=== PATIENT | female | born 1990 | race Caucasian/White ===

== ENCOUNTER 2016-05-16 12:50 | Outpatient (CLI) | payer MEDICAID, OTHER | END 2016-05-16 12:51 | disposition home or self-care (01) | DX: M25.551 Pain in right hip (principal) ==

== ENCOUNTER 2016-06-10 15:21 | Emergency (ER) | payer MEDICAID ==
[2016-06-10] MEDS ORDERED: ALBUTEROL NEB 2.5 MG/3 ML INH STA (15:35)
[2016-06-10] MEDS ORDERED: DEXAMETHASONE 10 MG/ML VIAL PO STA (15:35)
[2016-06-10] MEDS ORDERED: BUTALB/ACETAM/CAFF 50/325/40MG TABLET PO STA (15:36)
[2016-06-10] MEDS ORDERED: DEXAMETHASONE 10 MG/ML VIAL ONE (15:43)
[2016-06-10] MEDS ORDERED: ALBUTEROL NEB 2.5 MG/3 ML INH ONE (15:46)
== END 2016-06-10 16:25 | disposition home or self-care (01) ==
DX: J06.9 Acute upper respiratory infection, unspecified (principal); G43.909 Migraine, unspecified, not intractable, without status migrainosus; G44.89 Other headache syndrome; I10 Essential (primary) hypertension; E11.9 Type 2 diabetes mellitus without complications; Z87.891 Personal history of nicotine dependence; Z20.828 Contact with and (suspected) exposure to other viral communicable diseases
CPT/HCPCS: 71020; 94640; 99282; 99283; A9270; J7613

== ENCOUNTER 2016-06-14 08:27 | Emergency (ER) | payer MEDICAID ==
[2016-06-14] MEDS ORDERED: ERYTHROMYCIN OPHTH OINT 1 GM TUBE LEFTEYE STA (09:39)
[2016-06-14] MEDS ORDERED: PSEUDOEPHEDRINE 30 MG TABLET PO STA (09:39)
[2016-06-14] MEDS ORDERED: PSEUDOEPHEDRINE 30 MG TABLET PO ONE (09:40)
[2016-06-14] MEDS ORDERED: ERYTHROMYCIN OPHTH OINT 1 GM TUBE ONE (09:40)
== END 2016-06-14 09:45 | disposition home or self-care (01) ==
DX: H10.9 Unspecified conjunctivitis (principal); J06.9 Acute upper respiratory infection, unspecified; B97.89 Other viral agents as the cause of diseases classified elsewhere; I10 Essential (primary) hypertension; E11.9 Type 2 diabetes mellitus without complications; Z87.891 Personal history of nicotine dependence
CPT/HCPCS: 99283; A9270; J3490

== ENCOUNTER 2016-06-29 00:22 | Emergency (ER) | payer MEDICAID ==
[2016-06-29] MEDS ORDERED: AZITHROMYCIN 250 MG TABLET PO STA (01:42)
[2016-06-29] MEDS ORDERED: cefTRIAXone 250 MG VIAL IM STA (01:43)
[2016-06-29] MEDS ORDERED: FLUCONAZOLE 100 MG TABLET PO STA (01:43)
[2016-06-29] MEDS ORDERED: PHENAZOPYRIDINE 100 MG TABLET PO STA (01:43)
[2016-06-29] MEDS ORDERED: cefTRIAXone 250 MG VIAL ONE (01:49)
[2016-06-29] MEDS ORDERED: AZITHROMYCIN 250 MG TABLET PO ONE (01:49)
[2016-06-29] MEDS ORDERED: FLUCONAZOLE 100 MG TABLET ONE (01:49)
[2016-06-29] MEDS ORDERED: PHENAZOPYRIDINE 100 MG TABLET PO ONE (01:49)
[2016-06-29] MEDS ORDERED: LIDOCAINE-MPF 1% 5 ML VIAL ONE (01:49)
== END 2016-06-29 02:23 | disposition home or self-care (01) ==
DX: N30.91 Cystitis, unspecified with hematuria (principal); I10 Essential (primary) hypertension; E11.9 Type 2 diabetes mellitus without complications; Z87.891 Personal history of nicotine dependence
CPT/HCPCS: 81001; 81025; 96372; 99283; A9270

== ENCOUNTER 2016-09-23 10:48 | Outpatient (CLI) | payer MEDICAID ==
[2016-09-23 13:31] LABS: BASOPHILS % (AUTO) 0.3 %; EOSINOPHILS # (AUTO) 0.2 10^3/uL (0.0-0.7); EOSINOPHILS % (AUTO) 1.8 %; HCT - HEMATOCRIT 38.9 % (37.0-47.0); HGB - HEMOGLOBIN 13.3 g/dL (12.0-16.0); LYMPHOCYTES # (AUTO) 3.4 10^3/uL (1.5-3.5); LYMPHOCYTES % (AUTO) 36.1 %; MEAN CORPUSCULAR HEMOGLOBIN 29.7 pg (27.0-31.0); MEAN CORPUSCULAR HGB CONC 34.2 g/dL (32.0-36.0); MEAN CORPUSCULAR VOLUME 86.9 fL (81.0-99.0); MEAN PLATELET VOLUME 8.1 fL (7.9-10.8); MONOCYTES # (AUTO) 0.6 10^3/uL (0.0-1.0); MONOCYTES % (AUTO) 6.7 %; NEUTROPHILS # (AUTO) 5.1 10^3/uL (1.5-6.6); NEUTROPHILS % (AUTO) 55.1 %; RED BLOOD COUNT 4.47 10^6/uL (4.20-5.40); RED CELL DISTRIBUTION WIDTH 13.4 % (12.0-15.0); UNCORRECTED WHITE BLOOD COUNT 9.3 x10^3/uL; WHITE BLOOD COUNT 9.3 x10^3/uL (4.8-10.8)
[2016-09-23 17:54] LABS: ALBUMIN/GLOBULIN RATIO 1.3 (1.0-2.2); BILIRUBIN,TOTAL 0.8 mg/dL (0.2-1.0); BUN - BLOOD UREA NITROGEN 12 mg/dL (6-20); CALCIUM 9.6 mg/dL (8.5-10.3); CARBON DIOXIDE - CO2 24 mmol/L (21-32); CHLORIDE 104 mmol/L (101-111); CHOL/HDL RATIO 4.1 (<4.4); CHOLESTEROL 142 mg/dL; CREATININE 0.7 mg/dL (0.4-1.0); GFR - MDRD 100 (>89); GLUCOSE 100 mg/dL (70-100); HDL CHOLESTEROL 35 mg/dL; POTASSIUM 3.9 mmol/L (3.5-5.0); SODIUM 138 mmol/L (135-145); TOTAL PROTEIN 7.6 g/dL (6.7-8.2)
[2016-09-23 18:07] LABS: LDL/HDL RATIO 2.6 (<4.4); TRIGLYCERIDES 84 mg/dL; VLDL CHOLESTEROL 17 mg/dL
== END 2016-09-23 10:49 | disposition home or self-care (01) ==
LOC: LAB.N 10:48
PROVIDERS: ATTEND Family Medicine
DX: E66.9 Obesity, unspecified (principal)
CPT/HCPCS: 36415; 80053; 80061; 84443; 85025

== ENCOUNTER 2017-01-15 11:49 | Outpatient (CLI) | payer MEDICAID ==
--- NOTE | 2017-01-15 13:13 | Ultrasound Report ---
PELVIC ULTRASOUND: 01/15/2017 CLINICAL INDICATION: Check IUD. TECHNIQUE: Transabdominal pelvic ultrasound performed for global evaluation. Transvaginal pelvic ul trasound performed for detailed evaluation. Real-time scanning performed and static images obtained. FINDINGS: Visualization is limited by habitus. The uterus is anteverted, measuring 8.6 x 5.0 x 3.4 cm. The endometrial echo complex measures 3 mm. The IUD is noted in the lower uterine segment. The ovaries are unremarkable, with the right measuri ng 4.1 x 2.6 x 2.6 cm and the left measuring 4.4 x 3.3 x 2.7 cm. No free fluid is present. IMPRESSION: IUD IN THE LOWER UTERINE SEGMENT. JOB #: [id number] EXT JOB #:[id number]
== END 2017-01-15 11:50 | disposition home or self-care (01) ==
LOC: DI 11:49
PROVIDERS: ATTEND Obstetrics & Gynecology
DX: Z30.431 Encounter for routine checking of intrauterine contraceptive device (principal)
CPT/HCPCS: 76830; 76856

== ENCOUNTER 2017-02-25 13:12 | Emergency (ER) | payer MEDICAID ==
[2017-02-25 13:18] VITALS: BP 130/76
[2017-02-25 14:57] LABS: BILIRUBIN,URINE NEGATIVE (NEGATIVE)
[2017-02-25 14:59] LABS: UA w/ MICROSCOPIC CHARGE YES
[2017-02-25 15:00] LABS: HCG UR QUAL NEGATIVE
[2017-02-25 15:21] LABS: UR CULTURE IF IND NOT INDICATED; WBC,URINE 0-3 /HPF (0-5)
--- NOTE | 2017-02-25 16:25 | ED Physician Documentation ---
History of Present Illness - Stated complaint Stated Complaint: LEFT HIP PX - Chief complaint Chief Complaint: Ext Problem - History obtained from History obtained from: Patient - History of Present Illness Timing: How many weeks ago (1) - Additonal information Additional information: 27-year-old female with a prior history of sciatica has developed pain in the left hip. She does not have any known injury to the area and she is not complaining of any pain in her back today. She has this pain that is unexplainable and is worse if she stands up and moves and better if she is laying in a certain position. She has not otherwise been ill. Review of Systems Constitutional: denies: Fever Eyes: denies: Decreased vision Ears: denies: Ear pain Nose: denies: Congestion Throat: denies: Sore throat Cardiac: denies: Chest pain / pressure Respiratory: denies: Cough GI: denies: Vomiting : denies: Dysuria Skin: denies: Rash Musculoskeletal: reports: Extremity pain, Joint pain, Pain with weight bearing. 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 CERAMIST: section HEENT: Tonsil/Adenoidectomy - Present Medications Home Medications: Ambulatory Orders Medication Instructions Recorded Confirmed buPROPion [Wellbutrin Sr] 0 mg PO BID 03/04/16 02/25/17 Cyclobenzaprine [Flexeril] 10 mg PO TID PRN #20 tablet 02/25/17 HYDROcod/ACETAM 5/325 [[place] 5/325] 1 - 2 ea PO Q6H PRN #15 tablet 02/25/17 busPIRone [Buspar] 0 mg DAILY 02/25/17 02/25/17 traZODone [Desyrel] 0 mg DAILY 02/25/17 02/25/17 - Allergies Allergies/Adverse Reactions: Allergies Allergy/AdvReac Type Severity Reaction Status Date / Time No Known Drug Allergies Allergy Verified 02/25/17 13:18 - Social History Does the pt smoke?: No Smoking Status: Former smoker Does the pt drink ETOH?: No Does the pt have substance abuse?: No Substance Use and Type: Marijuana - Immunizations Immunizations are current?: Yes Immunizations: TDAP >10years/unknown - POLST Patient has POLST: No PD ED PE NORMAL - Vitals Vital signs reviewed: Yes (Normal) - General General: No acute distress, Well developed/nourished - HEENT HEENT: Atraumatic, PERRL - Respiratory Respiratory: No respiratory distress - Back Back: No CVA TTP, No spinal TTP - Derm Derm: Normal color, Warm and dry, No rash - Extremities Extremities: No deformity, No edema, Other (The patient is able to lift the role of abdominal adipose tissue away from the inguinal crease to reveal where her pain is. There are no changes to the skin no palpable masses the area is some specific tenderness to specific area but without palpable defect under the skin. She does have pain palpable into the sciatic notch on the left side as well. She does not have paraspinous muscle tenderness. The distal neurovascular components are intact.) - Neuro Neuro: Alert and oriented X 3, No motor deficit, No sensory deficit, Normal speech Eye Opening: Spontaneous Motor: Obeys Commands Verbal: Oriented GCS Score: 15 - Psych Psych: Normal mood, Normal affect Results - Vitals Vitals: Vital Signs - 24 hr 02/25/17 13:14 Temperature 36.7 C Heart Rate 75 Respiratory 20 Rate Blood Pressure 130/76 O2 Saturation 97 Oxygen O2 Source Room air - Labs Labs: Laboratory Tests 02/25/17 14:46 Urine Color DARK YELLOW Urine Clarity HAZY Urine pH 6.0 Ur Specific [place] 1.025 Urine Protein 30 H Urine Glucose (UA) NEGATIVE Urine Ketones NEGATIVE Urine Occult Blood LARGE H Urine Nitrite NEGATIVE Urine Bilirubin NEGATIVE Urine Urobilinogen 0.2 (NORMAL) Ur Leukocyte Esterase NEGATIVE Urine RBC 0-5 Urine WBC 0-3 Ur Squamous Epith Cells MANY Squamous H Urine Bacteria Few Urine Mucus Marked Strands Ur Microscopic Review INDICATED Urine Culture Comments NOT INDICATED Urine HCG, Qual NEGATIVE PD MEDICAL DECISION MAKING - ED course Complexity details: reviewed old records, reviewed results, re-evaluated patient , considered differential, d/w patient ED course: 27-year-old female with a history of sciatica has pain in the left hip I suspect this is referred pain I do not find any changes to the skin or areas to be concern for abscess or other unusual process. She is administered dexamethasone 10 mg orally in the emergency department and a injection of Toradol. Departure - Departure Disposition: 01 Home, Self Care Clinical Impression: Sciatica Qualifiers: Laterality: left Qualified Code(s): M54.32 - Sciatica, left side Condition: Stable Instructions: ED Sciatica Follow-Up: [facility] [Provider Group] Prescriptions: Cyclobenzaprine [Flexeril] 10 mg PO TID PRN #20 tablet PRN Reason: Spasms HYDROcod/ACETAM 5/325 [[place] 5/325] 1 - 2 ea PO Q6H PRN #15 tablet PRN Reason: Pain
[2017-02-25] MEDS ORDERED: CHERRY SYRUP 10 ML UDC PO ONE (16:36)
[2017-02-25] MEDS: DEXAMETHASONE 10 MG/ML VIAL PO STA (16:36)
[2017-02-25] MEDS ORDERED: KETOROLAC 60 MG/2 ML VIAL ONE (16:36)
[2017-02-25] MEDS ORDERED: DEXAMETHASONE 10 MG/ML VIAL ONE (16:36)
[2017-02-25] MEDS: KETOROLAC 60 MG/2 ML VIAL IM STA (16:41)
== END 2017-02-25 17:00 | disposition home or self-care (01) ==
LOC: ED 13:12
DX: M54.32 Sciatica, left side (principal); I10 Essential (primary) hypertension; Z87.891 Personal history of nicotine dependence
CPT/HCPCS: 81001; 81003; 81025; 87086; 96372; 99283

== ENCOUNTER 2017-03-02 08:40 | Emergency (ER) | payer MEDICAID ==
--- NOTE | 2017-03-02 09:35 | ED Physician Documentation ---
PD HPI LOWER EXT INJURY - Stated complaint Stated Complaint: LT HIP PX - Chief complaint Chief Complaint: Ext Problem - History obtained from History obtained from: Patient - History of Present Illness PD HPI LOW EXT INJURY LOCATION: Left, Hip (and low back) Type of injury: No: Fall, Twist, Blunt / blow Timing - onset: How many weeks ago (1-2) Timing - duration: Weeks (1-2) Timing - details: Gradual onset, Still present Worsened by: Moving, Palpating Associated symptoms: No: Weakness, Numbness, Swelling, Discolored Similar symptoms before: No diagnosis (has low back pain in past, but this lateral/hip pain is different.) Recently seen: Emergency Dept (several days ago with this, and Rx hydrocodone and FLexeril. She says the flexeril makes her too sleepy and the hydrocodone makes her nauseated. Has done better on other meds in the past. 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 HEENT: None Psych: Depression, Anxiety Musculoskeletal: Chronic back pain - Past Surgical History Past Surgical History: Yes /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 HEENT: Tonsil/Adenoidectomy - Present Medications Home Medications: Ambulatory Orders Medication Instructions Recorded Confirmed buPROPion [Wellbutrin Sr] 150 mg PO BID 03/04/16 03/02/17 Cyclobenzaprine [Flexeril] 10 mg PO TID PRN #20 tablet 02/25/17 03/02/17 HYDROcod/ACETAM 5/325 [[place] 5/325] 1 - 2 ea PO Q6H PRN #15 tablet 02/25/17 busPIRone [Buspar] 150 mg BID 02/25/17 03/02/17 traZODone [Desyrel] 400 mg DAILY 02/25/17 03/02/17 Citalopram [CeleXA] 10 mg PO DAILY 11/20/17 11/20/17 Dexamethasone [Decadron] 4 mg PO DAILY #5 tablet 03/02/17 LORazepam [Lorazepam] 1 mg PO PRN PRN 03/02/17 03/02/17 Methocarbamol [Robaxin] 500 mg PO Q6H PRN #20 tablet 03/02/17 Naproxen [Naprosyn] 500 mg PO BID PRN #20 tablet 03/02/17 Oxycodone HCl/Acetaminophen 1 each PO Q6H PRN #15 tablet 03/02/17 [Percocet 5-325 mg Tablet] - Allergies Allergies/Adverse Reactions: Allergies Allergy/AdvReac Type Severity Reaction Status Date / Time No Known Drug Allergies Allergy Verified 03/02/17 08:51 - Social History Does the pt smoke?: No Smoking Status: Never smoker Does the pt drink ETOH?: No Does the pt have substance abuse?: No - Immunizations Immunizations are current?: Yes Immunizations: TDAP >10years/unknown - POLST Patient has POLST: No PD ED PE NORMAL - Vitals Vital signs reviewed: Yes - General General: Alert and oriented X 3, No acute distress, Well developed/nourished - Abdomen Abdomen: Soft, Non tender - Back Back: No CVA TTP, No spinal TTP, Other (tender just above iliac crest and lateral to the lateral gluteal area. Hurts with deeper palpation. No redness nor rash. ) - Derm Derm: Normal color, Warm and dry, No rash - Extremities Extremities: No edema, No calf tenderness / cord - Neuro Neuro: Alert and oriented X 3, No motor deficit, No sensory deficit, Normal speech Results - Vitals Vitals: Vital Signs - 24 hr 03/02/17 12:09 Temperature 35.8 C L Heart Rate 56 L Respiratory 16 Rate Blood Pressure 128/71 O2 Saturation 98 Oxygen O2 Source Room air - Labs Labs: Laboratory Tests 03/02/17 03/02/17 10:53 10:53 WBC 9.4 RBC 4.17 L Hgb 12.6 Hct 36.7 L MCV 88.0 MCH 30.3 MCHC 34.4 RDW 13.4 Plt Count 265 MPV 8.1 Neut # 5.6 Lymph # 3.0 Bennett # 0.6 Eos # 0.1 Baso # 0.1 Absolute Nucleated RBC 0.00 Nucleated RBC % 0.0 ESR 19 - Rads (name of study) soft tissue U/S Radiology: Prelim report reviewed (No fluid collections seen to suggest abscess/ etc.) PD MEDICAL DECISION MAKING - ED course Complexity details: reviewed results (cbc and U/S are okay, no apparent deeper soft tissue infection/abscess. No rash. Will conclude still myofascial pain. No real sciatic symptoms. ), considered differential (seems likely myofascial pain. She says the hydrocodone makes her sick and she has bottle with her with pills still in it. She offers to have us dispose of it. Says Percocet has worked in past without causing nausea. Flexeril has made her very tired and will change that as well. ), d/w patient Departure - Departure Disposition: 01 Home, Self Care Clinical Impression: Left low back pain Qualifiers: Chronicity: acute Sciatica presence: without sciatica Qualified Code(s): M54.5 - Low back pain Condition: Stable Record reviewed to determine appropriate education?: Yes Instructions: ED Low Back Pain Injury Follow-Up: Joe Lugo MD [Primary Care Provider] - Prescriptions: Dexamethasone [Decadron] 4 mg PO DAILY #5 tablet Methocarbamol [Robaxin] 500 mg PO Q6H PRN #20 tablet PRN Reason: Spasms Naproxen [Naprosyn] 500 mg PO BID PRN #20 tablet PRN Reason: Pain Oxycodone HCl/Acetaminophen [Percocet 5-325 mg Tablet] 1 each PO Q6H PRN #15 tablet PRN Reason: Pain Comments: Drink lots of fluids. There are no signs of infection based on blood count or ultrasound. At this point we will presume muscular or nerve irritation as the cause of the pain. Use some naproxen twice daily. Add also dexamethasone daily for 5 days for inflammation. Methocarbamol if needed for spasms and should not be sedating like the cyclobenzaprine. Add Percocet if needed for pain short-term. I would anticipate this improving over the next several days to week. Follow-up with your primary care if it has not. Discharge Date/Time: 03/02/17 12:42
[2017-03-02] MEDS ORDERED: KETOROLAC 60 MG/2 ML VIAL IM STA (10:29)
[2017-03-02] MEDS ORDERED: KETOROLAC 60 MG/2 ML VIAL ONE (10:39)
[2017-03-02 10:59] LABS: BASOPHILS # (AUTO) 0.1 10^3/uL (0.0-0.1); BASOPHILS % (AUTO) 0.8 %; EOSINOPHILS # (AUTO) 0.1 10^3/uL (0.0-0.7); EOSINOPHILS % (AUTO) 1.3 %; HCT - HEMATOCRIT 36.7 % (37.0-47.0); HGB - HEMOGLOBIN 12.6 g/dL (12.0-16.0); LYMPHOCYTES % (AUTO) 32.4 %; MEAN CORPUSCULAR HEMOGLOBIN 30.3 pg (27.0-31.0); MEAN CORPUSCULAR HGB CONC 34.4 g/dL (32.0-36.0); MEAN PLATELET VOLUME 8.1 fL (7.9-10.8); MONOCYTES # (AUTO) 0.6 10^3/uL (0.0-1.0); MONOCYTES % (AUTO) 6.4 %; NEUTROPHILS # (AUTO) 5.6 10^3/uL (1.5-6.6); NEUTROPHILS % (AUTO) 59.1 %; RED BLOOD COUNT 4.17 10^6/uL (4.20-5.40); RED CELL DISTRIBUTION WIDTH 13.4 % (12.0-15.0); UNCORRECTED WHITE BLOOD COUNT 9.4 x10^3/uL; WHITE BLOOD COUNT 9.4 x10^3/uL (4.8-10.8)
[2017-03-02 12:10] VITALS: BP 128/71
--- NOTE | 2017-03-02 12:24 | Ultrasound Report ---
ULTRASOUND LEFT BUTTOCK: 03/02/2017 CLINICAL INDICATION: Pain. TECHNIQUE: Real-time scanning was performed with rental sales representative static images obtained. FINDINGS: Ultrasound of the region of pain identified by the patient was performed. Unremarkable subcutaneous fat is seen. No drainable abscess is identified. IMPRESSION: NO EVIDENCE OF AN ABSCESS IN THE REGION OF PAIN IDENTIFIED BY THE PATIENT. JOB #: [id number] EXT JOB #:[id number]
== END 2017-03-02 12:42 | disposition home or self-care (01) ==
LOC: ED 08:40
DX: M54.5 Low back pain (principal); M25.552 Pain in left hip; I10 Essential (primary) hypertension; E11.9 Type 2 diabetes mellitus without complications
CPT/HCPCS: 36415; 76882; 85025; 85651; 96372; 99283

== ENCOUNTER 2017-04-10 21:04 | Emergency (ER) | payer MEDICAID ==
--- NOTE | 2017-04-10 21:16 | ED Physician Documentation ---
PD HPI UPPER EXT INJURY - Stated complaint Stated Complaint: KNUCKLE INJURY - Chief complaint Chief Complaint: Trauma Ext - History obtained from History obtained from: Patient - History of Present Illness Location: Left, Finger (middle finger got bent to side accidentally lidting/ playing with her son. Pain at the MCP dorsally and it clicks when she bends it.) Type of injury: Twist Where injury occurred: Home Timing - onset: Today Timing - details: Abrupt onset, Still present Improved by: Rest Worsened by: Moving (bending finger causes clicking feeling. Able to extend it okay.) Associated symptoms: Swelling. 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 HEENT: None Psych: Depression, Anxiety Musculoskeletal: Chronic back pain - Past Surgical History Past Surgical History: Yes /TOOL CRIB MANAGER: 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 HEENT: Tonsil/Adenoidectomy - Present Medications Home Medications: Ambulatory Orders Medication Instructions Recorded Confirmed buPROPion [Wellbutrin Sr] 150 mg PO BID 03/04/16 03/02/17 Cyclobenzaprine [Flexeril] 10 mg PO TID PRN #20 tablet 02/25/17 03/02/17 HYDROcod/ACETAM 5/325 [[place] 5/325] 1 - 2 ea PO Q6H PRN #15 tablet 02/25/17 busPIRone [Buspar] 150 mg BID 02/25/17 03/02/17 traZODone [Desyrel] 400 mg DAILY 02/25/17 03/02/17 Citalopram [CeleXA] 10 mg PO DAILY 03/02/17 03/02/17 Dexamethasone [Decadron] 4 mg PO DAILY #5 tablet 03/02/17 LORazepam [Lorazepam] 1 mg PO PRN PRN 03/02/17 03/02/17 Methocarbamol [Robaxin] 500 mg PO Q6H PRN #20 tablet 03/02/17 Naproxen [Naprosyn] 500 mg PO BID PRN #20 tablet 03/02/17 Oxycodone HCl/Acetaminophen 1 each PO Q6H PRN #15 tablet 03/02/17 [Percocet 5-325 mg Tablet] - Allergies Allergies/Adverse Reactions: Allergies Allergy/AdvReac Type Severity Reaction Status Date / Time No Known Drug Allergies Allergy Verified 04/10/17 21:18 - Social History Does the pt smoke?: No Smoking Status: Never smoker Does the pt drink ETOH?: No Does the pt have substance abuse?: No - Immunizations Immunizations are current?: Yes Immunizations: TDAP >10years/unknown - POLST Patient has POLST: No PD ED PE NORMAL - Vitals Vital signs reviewed: Yes - General General: Alert and oriented X 3, No acute distress, Well developed/nourished - Derm Derm: Normal color, Warm and dry - Extremities Extremities: Other (left middle finger tender at dorsal MCP, with good extension against resistance. Flexion causes it to have the extensor tendon shift from center to side abruptly giving a clicking feel. ) - Neuro Neuro: No motor deficit, No sensory deficit Results - Vitals Vitals: Vital Signs - 24 hr 04/10/17 21:16 Temperature 36.3 C L Heart Rate 76 Respiratory 18 Rate Blood Pressure 129/60 O2 Saturation 97 Oxygen O2 Source Room air - Rads (name of study) middle finger Radiology: Prelim report reviewed, EMP read contemporaneously (no fractures. ) PD MEDICAL DECISION MAKING - ED course Complexity details: considered differential (she has slipping of the extensor tendon from center to side with flexion, so presume disruption of the retinaculum fibers. ), d/w patient Departure - Departure Disposition: 01 Home, Self Care Clinical Impression: Finger sprain Qualifiers: Encounter type: initial encounter Finger: middle finger Sprain of finger site: metacarpophalangeal joint Laterality: left Qualified Code(s): S63.653A - Sprain of metacarpophalangeal joint of left middle finger, initial encounter Condition: Stable Record reviewed to determine appropriate education?: Yes Instructions: ED Sprain Finger Follow-Up: Joe Lugo MD [Primary Care Provider] - [facility] [Provider Group] Comments: Finger splint for the knuckle when using your hand. You can have it off at times when just resting or sleeping. Do this for couple of weeks. Tylenol or ibuprofen if needed for pain or inflammation. It seems that you disrupted some of the anchoring fibers of the tendon so it is looser and moving over the knuckle as it bends. This commonly will heal in place with a little bit of time. Follow-up with orthopedics if it is continues to twang out of position with movement after 1-1 1/2 weeks. Discharge Date/Time: 04/10/17 21:58
[2017-04-10 21:18] VITALS: BP 129/60
--- NOTE | 2017-04-10 21:55 | XRAY Report ---
EXAM: RIGHT THIRD DIGIT RADIOGRAPHY EXAM DATE: 04/10/2017 09:38 PM. CLINICAL HISTORY: Middle finger injury at MCP joint. Pain. COMPARISON: None. TECHNIQUE: 3 views. FINDINGS: Bones: Normal. No fracture or bone lesion. Joints: Normal. No subluxations. Soft Tissues: Normal. No soft tissue swelling. IMPRESSION: Normal third digit radiography. [facility] Referring Provider Line: [phone] SITE ID: [id number]
== END 2017-04-10 21:58 | disposition home or self-care (01) ==
LOC: ED 21:04
DX: S63.653A Sprain of metacarpophalangeal joint of left middle finger, initial encounter (principal); X50.0XXA Overexertion from strenuous movement or load, initial encounter; Y92.019 Unspecified place in single-family (private) house as the place of occurrence of the external cause
CPT/HCPCS: 73140; 99283

== ENCOUNTER 2017-07-22 10:21 | Outpatient (CLI) | payer MEDICAID ==
--- NOTE | 2017-07-22 12:51 | XRAY Report ---
TWO VIEW LEFT HAND: 07/22/2017 CLINICAL INDICATION: Pain middle finger. FINDINGS: AP, lateral views of the left hand demonstrate no evidence of fracture. The joint spaces are preserved. No radiopaque foreign body is seen in the soft tissues. IMPRESSION: NORMAL LEFT HAND. TD: 07/22/2017 12:50
== END 2017-07-22 10:22 | disposition home or self-care (01) ==
LOC: DI.N 10:21
PROVIDERS: ATTEND Physician Assistant Medical
DX: M79.645 Pain in left finger(s) (principal); S63.65 Sprain of metacarpophalangeal joint of other and unspecified finger(s); N64.3 Galactorrhea not associated with childbirth; E55.9 Vitamin D deficiency, unspecified; M25.552 Pain in left hip; E66.9 Obesity, unspecified; M25.551 Pain in right hip; M79.672 Pain in left foot; M79.642 Pain in left hand
CPT/HCPCS: 36415; 82306; 84146; 84443; 85025

== ENCOUNTER 2017-07-22 10:45 | Outpatient (CLI) | payer MEDICAID ==
[2017-07-22 12:46] LABS: BASOPHILS % (AUTO) 0.3 %; EOSINOPHILS # (AUTO) 0.1 10^3/uL (0.0-0.7); EOSINOPHILS % (AUTO) 1.5 %; HGB - HEMOGLOBIN 13.5 g/dL (12.0-16.0); LYMPHOCYTES # (AUTO) 2.7 10^3/uL (1.5-3.5); LYMPHOCYTES % (AUTO) 32.8 %; MEAN CORPUSCULAR VOLUME 88.4 fL (81.0-99.0); MEAN PLATELET VOLUME 8.4 fL (7.9-10.8); MONOCYTES # (AUTO) 0.5 10^3/uL (0.0-1.0); MONOCYTES % (AUTO) 6.2 %; NEUTROPHILS # (AUTO) 4.9 10^3/uL (1.5-6.6); NEUTROPHILS % (AUTO) 59.2 %; PLT - PLATELET COUNT 252 10^3/uL (130-450); RED BLOOD COUNT 4.51 10^6/uL (4.20-5.40); RED CELL DISTRIBUTION WIDTH 13.1 % (12.0-15.0); WHITE BLOOD COUNT 8.3 x10^3/uL (4.8-10.8)
[2017-07-22 13:19] LABS: THYROID STIMULATING HORMONE 1.12 uIU/mL (0.34-5.60)
[2017-07-22 13:24] LABS: PROLACTIN 5.78 ng/mL
== END 2017-07-22 10:46 | disposition home or self-care (01) ==
LOC: LAB.N 10:45
PROVIDERS: ATTEND Registered Nurse
DX: N64.3 Galactorrhea not associated with childbirth (principal); E55.9 Vitamin D deficiency, unspecified; M25.552 Pain in left hip; E66.9 Obesity, unspecified; M25.551 Pain in right hip; M79.642 Pain in left hand; M79.672 Pain in left foot
CPT/HCPCS: 36415; 82306; 84146; 84443; 85025

== ENCOUNTER 2017-08-12 10:11 | Outpatient (CLI) | payer MEDICAID ==
--- NOTE | 2017-08-12 12:40 | XRAY Report ---
THREE VIEW RIGHT FOOT: 08/12/2017 CLINICAL INDICATION: Pain. FINDINGS: AP, lateral, oblique views of the right foot demonstrate no evidence of fracture or dislocation. Small plantar calcaneal spur is noted. No foreign body is seen in the soft tissues. IMPRESSION: SMALL PLANTAR CALCANEAL SPUR. TD: 08/12/2017 12:39
== END 2017-08-12 10:12 | disposition home or self-care (01) ==
LOC: DI.N 10:11
PROVIDERS: ATTEND Physician Assistant Medical
DX: M79.671 Pain in right foot (principal); M77.31 Calcaneal spur, right foot

== ENCOUNTER 2017-08-12 19:31 | Emergency (ER) | payer MEDICAID ==
[2017-08-12] MEDS ORDERED: TRIAMCINOLONE 0.1% OINT 15 GM TUBE TOP STA (20:47)
[2017-08-12] MEDS ORDERED: predniSONE 20 MG TABLET PO STA (20:47)
--- NOTE | 2017-08-12 20:50 | ED Physician Documentation ---
PD HPI SKIN - Stated complaint Stated Complaint: RASH/RT ARM - Chief complaint Chief Complaint: Wound - History obtained from History obtained from: Patient - History of Present Illness Timing - onset: Other (She was playing a game which involved grabbing at coins for several hours at the [employer] today and developed an itchy raised rash over the anterior right forearm where she was in contact with multiple pieces of metal and coins.) Review of Systems Constitutional: reports: Reviewed and negative Cardiac: reports: Reviewed and negative Respiratory: reports: Reviewed and negative PD PAST MEDICAL HISTORY - Past Medical History Past Medical History: Yes Cardiovascular: Hypertension Respiratory: Pneumonia Neuro: Headache/migraine Endocrine/Autoimmune: Type 2 diabetes GI: None 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 HEENT: None Psych: Depression, Anxiety Musculoskeletal: Chronic back pain - Past Surgical History Past Surgical History: Yes /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 HEENT: Tonsil/Adenoidectomy - Present Medications Home Medications: Ambulatory Orders Medication Instructions Recorded Confirmed buPROPion [Wellbutrin Sr] 150 mg PO BID 03/04/16 03/02/17 Cyclobenzaprine [Flexeril] 10 mg PO TID PRN #20 tablet 02/25/17 03/02/17 HYDROcod/ACETAM 5/325 [[place] 5/325] 1 - 2 ea PO Q6H PRN #15 tablet 02/25/17 busPIRone [Buspar] 150 mg BID 02/25/17 03/02/17 traZODone [Desyrel] 400 mg DAILY 02/25/17 03/02/17 Citalopram [CeleXA] 10 mg PO DAILY 03/02/17 03/02/17 Dexamethasone [Decadron] 4 mg PO DAILY #5 tablet 03/02/17 LORazepam [Lorazepam] 1 mg PO PRN PRN 03/02/17 03/02/17 Methocarbamol [Robaxin] 500 mg PO Q6H PRN #20 tablet 03/02/17 Naproxen [Naprosyn] 500 mg PO BID PRN #20 tablet 03/02/17 Oxycodone HCl/Acetaminophen 1 each PO Q6H PRN #15 tablet 03/02/17 [Percocet 5-325 mg Tablet] Fluconazole [Diflucan] 150 mg PO ONCE #1 tablet 08/12/17 Triamcinolone 0.1% Oint [Kenalog 1 gm TOP BID #2 tube 08/12/17 0.1% Oint] - Allergies Allergies/Adverse Reactions: Allergies Allergy/AdvReac Type Severity Reaction Status Date / Time No Known Drug Allergies Allergy Verified 08/12/17 19:41 - Social History Does the pt smoke?: No Smoking Status: Never smoker Does the pt drink ETOH?: No Does the pt have substance abuse?: No - Immunizations Immunizations are current?: Yes Immunizations: TDAP >10years/unknown - POLST Patient has POLST: No PD ED PE NORMAL - Vitals Vital signs reviewed: Yes - General General: Alert and oriented X 3, No acute distress - Derm Derm: Other (There is a raised contact dermatitis over the mid anterior right forearm within an old tattoo.) - Neuro Neuro: Alert and oriented X 3, Normal speech Results - Vitals Vitals: Vital Signs - 24 hr 08/12/17 08/12/17 19:39 21:08 Temperature 36.0 C L Heart Rate 63 60 Respiratory 16 16 Rate Blood Pressure 138/79 H 114/52 L O2 Saturation 99 98 Oxygen O2 Source Room air Departure - Departure Disposition: 01 Home, Self Care Clinical Impression: Contact dermatitis Qualifiers: Contact dermatitis type: allergic Contact dermatitis trigger: metal Qualified Code(s): 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 This does not mean that you have hypertension, it is a common phenomenon to come to the emergency department and have elevated blood pressure. I recommend that you see your primary care physician within the week to have it rechecked when you are feeling better. Discharge Date/Time: 08/12/17 21:10
[2017-08-12 21:09] VITALS: BP 114/52
== END 2017-08-12 21:10 | disposition home or self-care (01) ==
LOC: ED 19:31
DX: L23.0 Allergic contact dermatitis due to metals (principal); I10 Essential (primary) hypertension; E11.9 Type 2 diabetes mellitus without complications; M79.671 Pain in right foot; M77.31 Calcaneal spur, right foot
CPT/HCPCS: 73630; 99283; A9270; J7512

== ENCOUNTER 2017-11-09 09:20 | Emergency (ER) | payer MEDICAID ==
[2017-11-09 09:37] VITALS: BP 134/98
--- NOTE | 2017-11-09 10:28 | ED Physician Documentation ---
History of Present Illness - Stated complaint Stated Complaint: FEMALE - Chief complaint Chief Complaint: UTI - Additonal information Additional information: hx from pt 27 f dysuria s/p intercourse subj fever no chills no NV some muscular back spasm but no CVA pain no vag bleed or dc Review of Systems Constitutional: reports: Fever. denies: Chills Cardiac: denies: Chest pain / pressure Respiratory: denies: Dyspnea GI: denies: Abdominal Pain : reports: Dysuria. 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 HEENT: Tonsil/Adenoidectomy - Present Medications Home Medications: Ambulatory Orders Medication Instructions Recorded Confirmed buPROPion [Wellbutrin Sr] 150 mg PO BID 03/04/16 03/02/17 Cyclobenzaprine [Flexeril] 10 mg PO TID PRN #20 tablet 02/25/17 03/02/17 HYDROcod/ACETAM 5/325 [[place] 5/325] 1 - 2 ea PO Q6H PRN #15 tablet 02/25/17 busPIRone [Buspar] 150 mg BID 02/25/17 03/02/17 traZODone [Desyrel] 400 mg DAILY 02/25/17 03/02/17 Citalopram [CeleXA] 10 mg PO DAILY 03/02/17 03/02/17 Dexamethasone [Decadron] 4 mg PO DAILY #5 tablet 03/02/17 LORazepam [Lorazepam] 1 mg PO PRN PRN 03/02/17 03/02/17 Methocarbamol [Robaxin] 500 mg PO Q6H PRN #20 tablet 03/02/17 Naproxen [Naprosyn] 500 mg PO BID PRN #20 tablet 03/02/17 Oxycodone HCl/Acetaminophen 1 each PO Q6H PRN #15 tablet 03/02/17 [Percocet 5-325 mg Tablet] Fluconazole [Diflucan] 150 mg PO ONCE #1 tablet 08/12/17 Triamcinolone 0.1% Oint [Kenalog 1 gm TOP BID #2 tube 08/12/17 0.1% Oint] Cephalexin [Keflex] 500 mg PO Q6H #28 capsule 11/09/17 Phenazopyridine [Pyridium] 100 mg PO Q8H PRN #9 tablet 11/09/17 - Allergies Allergies/Adverse Reactions: Allergies Allergy/AdvReac Type Severity Reaction Status Date / Time No Known Drug Allergies Allergy Verified 11/09/17 09:37 - Social History Does the pt smoke?: No Smoking Status: Never smoker Does the pt drink ETOH?: No Does the pt have substance abuse?: No - Immunizations Immunizations are current?: Yes Immunizations: TDAP >10years/unknown - POLST Patient has POLST: No PD ED PE NORMAL - Vitals Vital signs reviewed: Yes - Cardiac Cardiac: RRR - Respiratory Respiratory: No respiratory distress - Abdomen Abdomen: Soft, Non tender - Back Back: No CVA TTP - Neuro Neuro: Alert and oriented X 3 Results - Vitals Vitals: Vital Signs - 24 hr 11/09/17 09:34 Temperature 36.1 C L Heart Rate 74 Respiratory 20 Rate Blood Pressure 134/98 H O2 Saturation 100 Oxygen O2 Source Room air - Labs Labs: Laboratory Tests 11/09/17 10:20 Urine Color YELLOW Urine Clarity HAZY Urine pH 6.5 Ur Specific [place] 1.015 Urine Protein NEGATIVE Urine Glucose (UA) NEGATIVE Urine Ketones NEGATIVE Urine Occult Blood TRACE-INTA Urine Nitrite NEGATIVE Urine Bilirubin NEGATIVE Urine Urobilinogen 0.2 (NORMAL) Ur Leukocyte Esterase TRACE H Urine RBC 0-5 Urine WBC >25 H Urine WBC Clumps PRESENT Ur Squamous Epith Cells MOD Squamous H Urine Bacteria Moderate H Ur Microscopic Review INDICATED Urine Culture Comments NOT INDICATED Urine HCG, Qual NEGATIVE PD MEDICAL DECISION MAKING - Sepsis Event Vital Signs: Vital Signs - 24 hr 11/09/17 09:34 Temperature 36.1 C L Heart Rate 74 Respiratory 20 Rate Blood Pressure 134/98 H O2 Saturation 100 Oxygen O2 Source Room air Departure - Departure Disposition: 01 Home, Self Care Clinical Impression: Urinary tract infection Condition: Good Instructions: ED UTI Cystitis Female Follow-Up: Solomon Bennett PA-C [Primary Care Provider] - (for a repeat uriune test to be sure the infection has cleared ) Prescriptions: Cephalexin [Keflex] 500 mg PO Q6H #28 capsule Phenazopyridine [Pyridium] 100 mg PO Q8H PRN #9 tablet PRN Reason: painful urination Comments: A urine culture will be run and the ER staff will call you if you gary to be changed to a different antibiotic
[2017-11-09] MEDS ORDERED: PHENAZOPYRIDINE 100 MG TABLET PO STA (10:39)
[2017-11-09 10:46] LABS: BILIRUBIN,URINE NEGATIVE (NEGATIVE); GLUCOSE, URINE (UA) NEGATIVE (NEGATIVE); KETONES,URINE (UA) NEGATIVE (NEGATIVE); LEUKOCYTE ESTERASE, URINE TRACE (NEGATIVE); NITRITE,URINE NEGATIVE (NEGATIVE); OCCULT BLOOD,URINE TRACE-INTA (NEGATIVE); PH,URINE 6.5 PH (5.0-7.5); PROTEIN,URINE NEGATIVE (NEGATIVE); UROBILINOGEN,URINE 0.2 (NORMAL) E.U./dL (NORMAL)
[2017-11-09 10:51] LABS: CLARITY,URINE HAZY (CLEAR); HCG UR QUAL NEGATIVE
[2017-11-09 11:11] LABS: BACTERIA,URINE Moderate /HPF (None Seen); RBC,URINE 0-5 /HPF (0-5); SQUAMOUS EPITHELIAL CELL,UR MOD Squamous (<= Few); WBC CLUMPS,URINE PRESENT
== END 2017-11-09 11:20 | disposition home or self-care (01) ==
LOC: ED 09:20
DX: N39.0 Urinary tract infection, site not specified (principal); I10 Essential (primary) hypertension; E11.9 Type 2 diabetes mellitus without complications
CPT/HCPCS: 81001; 81025; 87491; 87591; 99283; A9270; 81003; 87086

== ENCOUNTER 2017-11-13 09:18 | Outpatient (CLI) | payer MEDICAID ==
[2017-11-13 12:39] LABS: BASOPHILS % (AUTO) 0.2 %; EOSINOPHILS # (AUTO) 0.2 10^3/uL (0.0-0.7); EOSINOPHILS % (AUTO) 2.3 %; HGB - HEMOGLOBIN 13.6 g/dL (12.0-16.0); LYMPHOCYTES # (AUTO) 2.6 10^3/uL (1.5-3.5); LYMPHOCYTES % (AUTO) 34.3 %; MEAN CORPUSCULAR HEMOGLOBIN 30.5 pg (27.0-31.0); MEAN CORPUSCULAR HGB CONC 34.6 g/dL (32.0-36.0); MEAN CORPUSCULAR VOLUME 88.1 fL (81.0-99.0); MEAN PLATELET VOLUME 8.4 fL (7.9-10.8); MONOCYTES # (AUTO) 0.6 10^3/uL (0.0-1.0); MONOCYTES % (AUTO) 7.4 %; NEUTROPHILS # (AUTO) 4.2 10^3/uL (1.5-6.6); NEUTROPHILS % (AUTO) 55.8 %; PLT - PLATELET COUNT 277 10^3/uL (130-450); RED BLOOD COUNT 4.48 10^6/uL (4.20-5.40); RED CELL DISTRIBUTION WIDTH 13.6 % (12.0-15.0); WHITE BLOOD COUNT 7.5 x10^3/uL (4.8-10.8)
[2017-11-13 12:47] LABS: CHOL/HDL RATIO 3.6 (<4.4); CHOLESTEROL 137 mg/dL; HDL CHOLESTEROL 38 mg/dL; LDL CHOLESTEROL,CALCULATED 90 mg/dL; LDL/HDL RATIO 2.4 (<4.4); VLDL CHOLESTEROL 9 mg/dL
[2017-11-13 12:57] LABS: HB2 TOTAL 14.5 g/dL; HEMOGLOBIN A1C 0.54 g/dL; HEMOGLOBIN A1C % 5.6 % (4.6-6.2)
[2017-11-14 12:56] LABS: HIV AG/AB 4TH GEN NON-REACTIVE (NON-REACTIVE)
[2017-11-14 13:23] LABS: HEPATITIS C ANTIBODY NON-REACTIVE (NON-REACTIVE)
== END 2017-11-13 09:19 | disposition home or self-care (01) ==
LOC: LAB.N 09:18
PROVIDERS: ATTEND Registered Nurse
DX: Z11.3 Encounter for screening for infections with a predominantly sexual mode of transmission (principal); Z01.411 Encounter for gynecological examination (general) (routine) with abnormal findings
CPT/HCPCS: 36415; 80061; 81599; 83036; 83721; 85025; 86592; 86803; 87389

== ENCOUNTER 2017-11-17 08:00 | Outpatient (CLI) | payer MEDICAID | END 2017-11-17 08:01 | disposition home or self-care (01) | LOC: LAB.R 08:00 | PROVIDERS: ATTEND Obstetrics & Gynecology | DX: Z11.3 Encounter for screening for infections with a predominantly sexual mode of transmission (principal); R30.0 Dysuria | CPT/HCPCS: 87086; 87491; 87591 ==

== ENCOUNTER 2018-01-29 10:40 | Outpatient (CLI) | payer MEDICAID | END 2018-01-29 10:41 | disposition home or self-care (01) | LOC: LAB.R 10:40 | PROVIDERS: ATTEND Registered Nurse | DX: R30.0 Dysuria (principal) | CPT/HCPCS: 87086; 87181 ==

== ENCOUNTER 2018-04-12 10:30 | Emergency (ER) | payer MEDICAID ==
[2018-04-12] MEDS ORDERED: SODIUM CHLORIDE 0.9% 1,000 ML IV ONE (11:20)
[2018-04-12 12:02] LABS: HCG UR QUAL NEGATIVE
[2018-04-12] MEDS ORDERED: METOCLOPRAMIDE 10 MG/2 ML VIAL IVP STA (12:10)
[2018-04-12] MEDS ORDERED: diphenhydrAMINE INJ 50 MG/ML VIAL IVP STA (12:10)
[2018-04-12 12:18] LABS: BASOPHILS % (AUTO) 0.4 %; EOSINOPHILS # (AUTO) 0.1 10^3/uL (0.0-0.7); EOSINOPHILS % (AUTO) 1.8 %; HGB - HEMOGLOBIN 12.7 g/dL (12.0-16.0); LYMPHOCYTES # (AUTO) 2.3 10^3/uL (1.5-3.5); LYMPHOCYTES % (AUTO) 31.6 %; MEAN CORPUSCULAR HEMOGLOBIN 30.8 pg (27.0-31.0); MEAN CORPUSCULAR HGB CONC 34.9 g/dL (32.0-36.0); MEAN CORPUSCULAR VOLUME 88.4 fL (81.0-99.0); MEAN PLATELET VOLUME 7.4 fL (7.9-10.8); MONOCYTES # (AUTO) 0.5 10^3/uL (0.0-1.0); MONOCYTES % (AUTO) 6.1 %; NEUTROPHILS # (AUTO) 4.5 10^3/uL (1.5-6.6); NEUTROPHILS % (AUTO) 60.1 %; PLT - PLATELET COUNT 237 10^3/uL (130-450); RED BLOOD COUNT 4.14 10^6/uL (4.20-5.40); WHITE BLOOD COUNT 7.4 x10^3/uL (4.8-10.8)
[2018-04-12 12:32] LABS: ALBUMIN 3.7 g/dL (3.2-5.5); ALBUMIN/GLOBULIN RATIO 1.2 (1.0-2.2); BILIRUBIN,TOTAL 0.3 mg/dL (0.2-1.0); CALCIUM 8.4 mg/dL (8.5-10.3); CREATININE 0.7 mg/dL (0.4-1.0); TOTAL PROTEIN 6.7 g/dL (6.7-8.2)
--- NOTE | 2018-04-12 13:21 | CT Report ---
Reason: headache Procedure Date: 04/12/2018 Accession Number: [id number] / [id number] Procedure: CT - Head W/O CPT Code: FULL RESULT: EXAM: CT HEAD EXAM DATE: 04/12/2018 12:55 PM. CLINICAL HISTORY: Headache and sinus pressure for 1 week. COMPARISON: 03/29/2012. TECHNIQUE: Multiaxial CT images were obtained from the foramen magnum to the vertex. Reformats: Sagittal and coronal. IV contrast: None. In accordance with CT protocol optimization, one or more of the following dose reduction techniques were utilized for this exam: automated exposure control, adjustment of mA and/or KV based on patient size, or use of iterative reconstructive technique. FINDINGS: Parenchyma: No intraparenchymal hemorrhage. No evidence of mass, midline shift, or CT findings of infarction. Barnes-white differentiation is distinct. Extraaxial Spaces: Normal for age. No subdural or epidural collections identified. Ventricles: Normal in size and position. Sinuses and Orbits: Imaged paranasal sinuses, orbits, and mastoids are clear, and show no significant abnormality. Bones: No evidence of fracture or calvarial defect. Other: None. IMPRESSION: Normal head CT. RADIA
[2018-04-12] MEDS ORDERED: KETOROLAC 30 MG/ML VIAL IVP STA (14:26)
--- NOTE | 2018-04-12 14:54 | ED Physician Documentation ---
PD HPI HEADACHE - Stated complaint Stated Complaint: HEADACHE - Chief complaint Chief Complaint: Neuro - History obtained from History obtained from: Patient - History of Present Illness Timing - onset: How many days ago (19) Timing - duration: Days (19) Timing - details: Gradual onset, Still present Pain level max: 7 Pain level now: 7 Worst headache ever?: No: Worst headache ever? Location: Front Quality: Throbbing Associated symptoms: Nausea. No: Fever, Stiff neck, Vomiting, Weakness, Numbness, Syncope, Eye pain, Vision changes Improved by: Nothing Worsened by: Light Contributing factors: Recent illness. No: Anticoagulated, Possible carbon monoxide, Hypertension, Trauma Similar symptoms before: Diagnosis, Treatment Recently seen: Clinic - Additional information Additional information: 28-year-old female With history of hypertension diabetes complaining of sinus headache, Pressure and congestion that started last March 24. She received an antibiotic which she finished in April 03. Patient stated that she felt better however 2 days after being on antibiotic the sinus pressure and congestion returned. Patient claims a sinus pressure and congestion starts on her nose and it goes towards her frontal sinuses and maxillary sinuses. Patient stated has history of migraine headache but the last time she had one was 3-1/2 years ago. She used to see neurologist. Denies any fever, neck pain, trauma or travel.Stated she took some Motrin and it did not help. Review of Systems Ten Systems: 10 systems reviewed and negative Constitutional: denies: Fever, Myalgias Ears: denies: Ear pain Nose: reports: Rhinorrhea / runny nose, Congestion. denies: Foreign Body Respiratory: denies: Cough GI: reports: Nausea. denies: Abdominal Pain, Vomiting Musculoskeletal: denies: Neck pain Neurologic: reports: Headache. 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 HEENT: Tonsil/Adenoidectomy - Present Medications Home Medications: Ambulatory Orders Medication Instructions Recorded Confirmed RX: buPROPion [Wellbutrin Sr] 150 mg PO BID 03/04/16 04/12/18 RX: traZODone [Desyrel] 400 mg DAILY 02/25/17 04/12/18 Ibuprofen [Motrin] 800 mg PO Q8H PRN #30 tablet 04/12/18 Ondansetron Odt [Zofran] 4 mg TL Q6H PRN #10 tablet 04/12/18 - Allergies Allergies/Adverse Reactions: Allergies Allergy/AdvReac Type Severity Reaction Status Date / Time No Known Drug Allergies Allergy Verified 11/09/17 09:37 - Social History Does the pt smoke?: No Smoking Status: Never smoker Does the pt drink ETOH?: No Does the pt have substance abuse?: No - Immunizations Immunizations are current?: Yes Immunizations: TDAP >10years/unknown - POLST Patient has POLST: No PD ED PE NORMAL - Vitals Vital signs reviewed: Yes - General General: Alert and oriented X 3, No acute distress, Well developed/nourished - HEENT HEENT: Atraumatic, PERRL, EOMI, Ears normal, Moist mucous membranes, Pharynx benign, Other (Positive mild tenderness of the nasal bridge or sinuses and frontal sinuses to percussion.) - Neck Neck: Supple, no meningeal sign, No bony TTP, No adenopathy - Cardiac Cardiac: RRR, No murmur - Respiratory Respiratory: Clear bilaterally - Abdomen Abdomen: Normal bowel sounds, Soft, Non tender, Non distended - Back Back: No spinal TTP - Derm Derm: Normal color, Warm and dry, No rash - Extremities Extremities: No deformity - Neuro Neuro: Alert and oriented X 3, lei seller 2-12 intact, No motor deficit, No sensory deficit, Normal speech - Psych Psych: Normal mood, Normal affect Results - Vitals Vitals: Vital Signs - 24 hr 04/12/18 04/12/18 04/12/18 10:45 13:28 14:59 Temperature 36.2 C L Heart Rate 69 80 56 L Respiratory 16 18 16 Rate Blood Pressure 140/84 H 114/76 139/79 H O2 Saturation 98 98 99 Oxygen O2 Source Room air - Labs Labs: Laboratory Tests 04/12/18 04/12/18 04/12/18 11:40 11:40 11:40 WBC 7.4 RBC 4.14 L Hgb 12.7 Hct 36.6 L MCV 88.4 MCH 30.8 MCHC 34.9 RDW 13.0 Plt Count 237 MPV 7.4 L Neut # (Auto) 4.5 Lymph # (Auto) 2.3 [place] # (Auto) 0.5 Eos # (Auto) 0.1 Baso # (Auto) 0.0 Absolute Nucleated RBC 0.00 Nucleated RBC % 0.0 ESR 13 Sodium Potassium Chloride Carbon Dioxide Anion Gap BUN Creatinine Estimated GFR (MDRD) Glucose Calcium Total Bilirubin AST ALT Alkaline Phosphatase Total Protein Albumin Globulin Albumin/Globulin Ratio Lipase Ur Specific [place] 1.025 Urine HCG, Qual NEGATIVE 04/12/18 12:13 WBC RBC Hgb Hct MCV MCH MCHC RDW Plt Count MPV Neut # (Auto) Lymph # (Auto) [place] # (Auto) Eos # (Auto) Baso # (Auto) Absolute Nucleated RBC Nucleated RBC % ESR Sodium 138 Potassium 3.8 Chloride 105 Carbon Dioxide 27 Anion Gap 6.0 BUN 15 Creatinine 0.7 Estimated GFR (MDRD) 98 Glucose 103 H Calcium 8.4 L Total Bilirubin 0.3 AST 14 ALT 15 Alkaline Phosphatase 51 Total Protein 6.7 Albumin 3.7 Globulin 3.0 Albumin/Globulin Ratio 1.2 Lipase 29 Ur Specific [place] Urine HCG, Qual PD MEDICAL DECISION MAKING - ED course Complexity details: reviewed results, re-evaluated patient, considered differential (Sinusitis, sinus headache, polyps, intracranial bleed, migraine, pseudotumor cerebri), d/w patient ED course: 1212 patient's UCG is negative so we will order a CT scan and medication. 1354 patient denies any more nausea or photophobia but states still has sinus pressure and requesting for pain medication. Patient inform of test results. 1451 per nurse patient wants to go home as she is feeling better after the Toradol.Patient inform me that she has an ENT appointment this coming or 3 days from now. Departure - Departure Disposition: Home, Self Care Clinical Impression: Sinus headache Headache Qualifiers: Headache chronicity pattern: acute headache Intractability: not intractable Condition: Stable Instructions: ED Cephalgia Unspecified, ED Headache Sinus Prescriptions: Ibuprofen [Motrin] 800 mg PO Q8H PRN #30 tablet PRN Reason: PAIN &/OR FEVER Ondansetron Odt [Zofran] 4 mg TL Q6H PRN #10 tablet PRN Reason: Nausea / Vomiting Comments: Follow-up with your primary doctor and get the referral for ENT to reevaluate your sinus headache. Also consider to return to your neurologist for your previous headache history. If worse return to the emergency room. Discharge Date/Time: 04/12/18 15:00
[2018-04-12 15:00] VITALS: BP 139/79
== END 2018-04-12 15:00 | disposition home or self-care (01) ==
LOC: ED 10:30
DX: R51 Headache (principal); J34.89 Other specified disorders of nose and nasal sinuses; I10 Essential (primary) hypertension; E11.9 Type 2 diabetes mellitus without complications
CPT/HCPCS: 36415; 70450; 80053; 81025; 83690; 85025; 85651; 96361; 96374; 96375; 99283; J1200; J2765

== ENCOUNTER 2018-05-01 02:37 | Emergency (ER) | payer MEDICAID ==
--- NOTE | 2018-05-01 03:33 | ED Physician Documentation ---
PD HPI BACK PAIN - Stated complaint Stated Complaint: UPPER BACK PAIN - Chief complaint Chief Complaint: Back Pain - History obtained from History obtained from: Patient - History of Present Illness Timing - onset: How many days ago (2) Timing - duration: Days Timing - details: Gradual onset, Waxing and waning Pain level now: 6 Location: Upper, Right Quality: Pain Associated symptoms: No: Fever, Weakness, Numbness, Incontinent of urine, Unable to urinate, Hematuria, Incontinent of stool Improves with: Rest, Position Worsened by: Movement, Other (lying supine, turning head, breathing (inspiration)) Similar symptoms before: No diagnosis Recently seen: Not recently seen Review of Systems Constitutional: reports: Reviewed and negative Cardiac: reports: Reviewed and negative Respiratory: reports: Reviewed and negative GI: reports: Reviewed and negative Skin: denies: Rash Musculoskeletal: reports: Back pain. 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 HEENT: Tonsil/Adenoidectomy - Present Medications Home Medications: Ambulatory Orders Medication Instructions Recorded Confirmed buPROPion [Wellbutrin Sr] 150 mg PO BID 03/04/16 05/01/18 traZODone [Desyrel] 400 mg PO DAILY 02/25/17 05/01/18 Albuterol Sulf [Ventolin Hfa 1 - 2 puffs INH Q4HR PRN #1 inhaler 05/01/18 Inhaler] Cyclobenzaprine [Flexeril] 10 mg PO TID PRN #20 tablet 05/01/18 05/01/18 Doxycycline Hyclate 100 mg PO BID #20 capsule 05/01/18 Ibuprofen [Motrin] 400 mg PO Q8H PRN 05/01/18 05/01/18 Lorazepam [Ativan] 1 mg PO Q8HR PRN 05/01/18 05/01/18 Oxycodone HCl/Acetaminophen 1 - 2 each PO Q6H PRN #14 tablet 05/01/18 05/01/18 [Percocet 5-325 mg Tablet] predniSONE [Prednisone] 60 mg PO DAILY #12 tablet 05/01/18 - Allergies Allergies/Adverse Reactions: Allergies Allergy/AdvReac Type Severity Reaction Status Date / Time No Known Drug Allergies Allergy Verified 05/01/18 11:12 - Social History Does the pt smoke?: No Smoking Status: Never smoker Does the pt drink ETOH?: No Does the pt have substance abuse?: No - Immunizations Immunizations are current?: Yes Immunizations: TDAP >10years/unknown - POLST Patient has POLST: No PD ED PE NORMAL - Vitals Vital signs reviewed: Yes - General General: Alert and oriented X 3, No acute distress, Well developed/nourished - Neck Neck: Supple, no meningeal sign - Cardiac Cardiac: RRR, No murmur, No gallop, No rub - Respiratory Respiratory: No respiratory distress, Clear bilaterally - Derm Derm: No rash - Extremities Extremities: No edema Results - Vitals Vitals: Vital Signs - 24 hr 05/01/18 05/01/18 02:40 05:34 Temperature 36.0 C L 36.2 C L Heart Rate 81 72 Respiratory 18 16 Rate Blood Pressure 140/81 H 128/83 H O2 Saturation 97 97 Oxygen O2 Source Room air - Labs Labs: Laboratory Tests 05/01/18 03:56 D-Dimer 183.5 L - Rads (name of study) chest xray Radiology: Prelim report reviewed, See rad report PD MEDICAL DECISION MAKING - ED course Complexity details: reviewed old records, reviewed results, re-evaluated patient, considered differential, d/w patient Departure - Departure Disposition: 01 Home, Self Care Clinical Impression: Back pain, Pulmonary nodule Condition: Good Instructions: ED Neck Back Pain General, ED Chest Pain Pleurisy, ED Nodule Solitary Pulmonary Follow-Up: Solomon Bennett PA-C [Primary Care Provider] - Prescriptions: Cyclobenzaprine [Flexeril] 10 mg PO TID PRN #20 tablet PRN Reason: Spasms Oxycodone HCl/Acetaminophen [Percocet 5-325 mg Tablet] 1 - 2 each PO Q6H PRN #14 tablet PRN Reason: pain Discharge Date/Time: 05/01/18 05:35
[2018-05-01] MEDS ORDERED: CYCLOBENZAPRINE 10 MG TABLET PO STA (03:46)
[2018-05-01] MEDS ORDERED: oxyCODONE 5 MG TABLET PO STA (03:46)
--- NOTE | 2018-05-01 04:25 | XRAY Report ---
Reason: pleuritic right upper back pain Procedure Date: 05/01/2018 Accession Number: [id number] / [id number] Procedure: XR - Chest 2 View X-Ray CPT Code: 39430 FULL RESULT: EXAM: CHEST RADIOGRAPHY EXAM DATE: 05/01/2018 04:18 AM. CLINICAL HISTORY: Pleuritic right upper back pain. COMPARISON: CHEST 2 VIEW PA/LAT 06/10/2016 3:47 PM. TECHNIQUE: 2 views. FINDINGS: Lungs/Pleura: New faint nodularity projecting laterally at the level of the minor fissure in the right lung. Consider chest CT for further evaluation. Mediastinum: Heart and mediastinal contours are unremarkable. Other: None. IMPRESSION: New faint nodularity in the lateral right lung. Consider chest CT for further evaluation. RADIA
[2018-05-01 05:35] VITALS: BP 128/83
== END 2018-05-01 05:35 | disposition home or self-care (01) ==
LOC: ED 02:37
DX: M54.9 Dorsalgia, unspecified (principal); R91.1 Solitary pulmonary nodule; I10 Essential (primary) hypertension; E11.9 Type 2 diabetes mellitus without complications; G89.29 Other chronic pain
CPT/HCPCS: 36415; 71046; 85379; 99283

== ENCOUNTER 2018-05-01 10:58 | Emergency (ER) | payer MEDICAID ==
[2018-05-01] MEDS ORDERED: SODIUM CHLORIDE 0.9% 1,000 ML IV ONE (12:15)
[2018-05-01] MEDS ORDERED: ACETAMINOPHEN 500 MG TABLET PO STA (12:15)
[2018-05-01] MEDS ORDERED: ALBUTEROL NEB 2.5 MG/3 ML INH STA (12:18)
[2018-05-01 12:52] LABS: HCG UR QUAL NEGATIVE
[2018-05-01] MEDS ORDERED: ALBUTEROL NEB 2.5 MG/3 ML INH ONE (13:01)
[2018-05-01 13:05] LABS: BASOPHILS % (AUTO) 0.2 %; EOSINOPHILS # (AUTO) 0.1 10^3/uL (0.0-0.7); EOSINOPHILS % (AUTO) 0.6 %; HGB - HEMOGLOBIN 13.3 g/dL (12.0-16.0); LYMPHOCYTES # (AUTO) 1.4 10^3/uL (1.5-3.5); LYMPHOCYTES % (AUTO) 14.9 %; MEAN CORPUSCULAR HEMOGLOBIN 30.5 pg (27.0-31.0); MEAN CORPUSCULAR HGB CONC 34.2 g/dL (32.0-36.0); MEAN CORPUSCULAR VOLUME 89.3 fL (81.0-99.0); MEAN PLATELET VOLUME 7.6 fL (7.9-10.8); MONOCYTES # (AUTO) 0.8 10^3/uL (0.0-1.0); MONOCYTES % (AUTO) 8.7 %; NEUTROPHILS % (AUTO) 75.6 %; PLT - PLATELET COUNT 243 10^3/uL (130-450); RED BLOOD COUNT 4.37 10^6/uL (4.20-5.40); RED CELL DISTRIBUTION WIDTH 13.3 % (12.0-15.0); WHITE BLOOD COUNT 9.2 x10^3/uL (4.8-10.8)
[2018-05-01 13:23] LABS: ALBUMIN 4.1 g/dL (3.2-5.5); ALBUMIN/GLOBULIN RATIO 1.2 (1.0-2.2); BILIRUBIN,TOTAL 0.8 mg/dL (0.2-1.0); CREATININE 0.7 mg/dL (0.4-1.0); TOTAL PROTEIN 7.5 g/dL (6.7-8.2)
[2018-05-01] MEDS ORDERED: IOVERSOL 320 100 ML VIAL IVP ONE ×2 (13:51→14:20)
--- NOTE | 2018-05-01 14:42 | CT Report ---
Reason: Worsening Chest pain Procedure Date: 05/01/2018 Accession Number: [id number] / [id number] Procedure: CT - Chest Angio (PE) CPT Code: FULL RESULT: EXAM: CT ANGIOGRAM CHEST EXAM DATE: 05/01/2018 02:07 PM. CLINICAL HISTORY: Worsening Chest pain. COMPARISON: None. TECHNIQUE: Routine helical imaging was performed through the chest in the pulmonary arterial phase. IV Contrast: Optiray 320 80mL. Reconstructions: Coronal 3-D MIP reconstructions.Sagittal and coronal. In accordance with CT protocol optimization, one or more of the following dose reduction techniques were utilized for this exam: automated exposure control, adjustment of mA and/or KV based on patient size, or use of iterative reconstructive technique. FINDINGS: Pulmonary Arteries: Diagnostic quality: Suboptimal through the segmental arteries, which may be due to contrast bolus timing. No convincing acute or chronic pulmonary embolism to the proximal segmental level. RV/LV is within normal limits. There is no interventricular septal bowing. There is no reflux of contrast material in the IVC. Lungs/Pleura: There is a focal area of peripheral consolidation at the lateral inferior right upper lobe abutting the minor fissure. There are several scattered bilateral small pulmonary nodules/nodular opacities (eg, 5/41, 46, 53, 55, 56, 68, 82, 122 ) measuring up to proximally 7 mm in the right upper lobe abutting the minor fissure (5/53) and 12 mm at the posterior medial left lung base (5/122). No pleural effusion or pneumothorax. Airways appear patent. Mediastinum: Normal. No cardiac enlargement or adenopathy. Thoracic Aorta: Unremarkable. Upper Abdomen: Nonspecific anterior right hepatic lobe hypodensity measuring approximately 18 x 16 mm (4/107), possibly cyst. Ultrasound could be performed for confirmation. Other: None. IMPRESSION: 1. Suboptimal opacification of the pulmonary arteries. No convincing acute pulmonary embolism to the proximal segmental level. 2. Focal area of peripheral consolidation at the lateral right upper lobe abutting the minor fissure. Differential considerations include bronchopneumonia, eosinophilic lung disease, organizing pneumonia, pulmonary infarction, among others. 3. Scattered small bilateral indeterminate pulmonary nodules/nodular opacities, possibly inflammatory. 4. Nonspecific hepatic hypodensity, possibly cyst; ultrasound could be performed for confirmation on a nonemergent basis. 5. Other findings as noted above. RADIA
[2018-05-01] MEDS ORDERED: DOXYCYCLINE 100 MG TABLET PO STA (15:12)
[2018-05-01] MEDS ORDERED: predniSONE 20 MG TABLET PO STA (15:12)
--- NOTE | 2018-05-01 15:17 | ED Physician Documentation ---
History of Present Illness - Stated complaint Stated Complaint: BACK TO CHEST PX/ SOA - Chief complaint Chief Complaint: Cardiac - Additonal information Additional information: 28-year-old female who was seen last night and returns. The patient reports ongoing right-sided posterior chest wall pain which is worse with deep inspiration. The patient reports difficulty taking deep breaths. The patient reports cough and URI symptoms recently. The patient currently does not have a fever but recently did have a fever with the symptoms. Symptoms are described as moderate. No triggering factors. No relieving factors. 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 HEENT: None Psych: Depression, Anxiety Musculoskeletal: Chronic back pain - Past Surgical History Past Surgical History: Yes /CHUMMER: section HEENT: Tonsil/Adenoidectomy - Present Medications Home Medications: Ambulatory Orders Medication Instructions Recorded Confirmed buPROPion [Wellbutrin Sr] 150 mg PO BID 03/04/16 05/01/18 traZODone [Desyrel] 400 mg PO DAILY 02/25/17 05/01/18 Albuterol Sulf [Ventolin Hfa 1 - 2 puffs INH Q4HR PRN #1 inhaler 05/01/18 Inhaler] Cyclobenzaprine [Flexeril] 10 mg PO TID PRN #20 tablet 05/01/18 05/01/18 Doxycycline Hyclate 100 mg PO BID #20 capsule 05/01/18 Ibuprofen [Motrin] 400 mg PO Q8H PRN 05/01/18 05/01/18 Lorazepam [Ativan] 1 mg PO Q8HR PRN 05/01/18 05/01/18 Oxycodone HCl/Acetaminophen 1 - 2 each PO Q6H PRN #14 tablet 05/01/18 05/01/18 [Percocet 5-325 mg Tablet] predniSONE [Prednisone] 60 mg PO DAILY #12 tablet 05/01/18 - Allergies Allergies/Adverse Reactions: Allergies Allergy/AdvReac Type Severity Reaction Status Date / Time No Known Drug Allergies Allergy Verified 05/01/18 11:12 - Social History Does the pt smoke?: No Smoking Status: Never smoker Does the pt drink ETOH?: No Does the pt have substance abuse?: No - Immunizations Immunizations are current?: Yes Immunizations: TDAP >10years/unknown - POLST Patient has POLST: No PD ED PE NORMAL - General General: Alert and oriented X 3 - HEENT HEENT: Atraumatic, PERRL, EOMI, Ears normal - Neck Neck: Supple, no meningeal sign - Cardiac Cardiac: RRR, Strong equal pulses - Respiratory Respiratory: No respiratory distress, Clear bilaterally - Abdomen Abdomen: Soft, Non tender - Derm Derm: Normal color - Extremities Extremities: No deformity - Neuro Neuro: Alert and oriented X 3, Normal speech - Psych Psych: Normal affect Results - Vitals Vitals: Vital Signs - 24 hr 05/01/18 05/01/18 11:09 12:50 Temperature 37 C Heart Rate 91 80 Respiratory 20 18 Rate Blood Pressure 139/63 H O2 Saturation 96 Oxygen O2 Source Room air - Labs Labs: Laboratory Tests 05/01/18 05/01/18 05/01/18 12:24 12:42 12:42 WBC 9.2 RBC 4.37 Hgb 13.3 Hct 39.0 MCV 89.3 MCH 30.5 MCHC 34.2 RDW 13.3 Plt Count 243 MPV 7.6 L Neut # (Auto) 7.0 H Lymph # (Auto) 1.4 L [place] # (Auto) 0.8 Eos # (Auto) 0.1 Baso # (Auto) 0.0 Absolute Nucleated RBC 0.00 Nucleated RBC % 0.0 Sodium 135 Potassium 3.8 Chloride 99 L Carbon Dioxide 25 Anion Gap 11.0 BUN 9 Creatinine 0.7 Estimated GFR (MDRD) 98 Glucose 97 Calcium 9.0 Total Bilirubin 0.8 AST 18 ALT 20 Alkaline Phosphatase 58 Total Protein 7.5 Albumin 4.1 Globulin 3.4 Albumin/Globulin Ratio 1.2 Lipase 20 L Ur Specific [place] 1.025 Urine HCG, Qual NEGATIVE - Rads (name of study) CTA chest Radiology: Final report received, See rad report (Suboptimal opacification of the pulmonary arteries. No convincing Suboptimal opacification of the pulmonary arteries. No convincing ) PD MEDICAL DECISION MAKING - ED course ED course: The patient's workup appears to represent pneumonia, presently the patient appears appropriate for discharge and ongoing outpatient management. I discussed with the patient the incidental findings and the recommendations by the radiologist. The patient will follow up with primary care. I discussed warning signs and recommended returning for any worsening or any concerns. Departure - Departure Disposition: 01 Home, Self Care Clinical Impression: Pulmonary nodule, Liver lesion, Pulmonary nodules Pneumonia Qualifiers: Pneumonia type: due to unspecified organism Laterality: right Lung location: unspecified part of lung Qualified Code(s): J18.9 - Pneumonia, unspecified organism Condition: Good Instructions: Pneumonia Dc Follow-Up: Solomon Bennett PA-C [Primary Care Provider] - Within 1 week (Please follow-up with primary care. Please ask your primary care to arrange for an outpatient ultrasound to further assess the abnormality seen on your liver. Please ask your primary care to arrange for a repeat imaging of your chest to follow these Pulmonary nodules. If your symptoms are not improving you may need a referral to pulmonology to further assess her symptoms.) Prescriptions: Albuterol Sulf [Ventolin Hfa Inhaler] 1 - 2 puffs INH Q4HR PRN #1 inhaler PRN Reason: Shortness Of Air/Wheezing Doxycycline Hyclate 100 mg PO BID #20 capsule predniSONE [Prednisone] 60 mg PO DAILY #12 tablet Comments: Please return to the emergency department for worsening symptoms or any concerns
[2018-05-01 15:35] VITALS: BP 123/75
== END 2018-05-01 15:36 | disposition home or self-care (01) ==
LOC: ED 10:58
DX: R91.1 Solitary pulmonary nodule (principal); K76.9 Liver disease, unspecified; J18.9 Pneumonia, unspecified organism; M54.9 Dorsalgia, unspecified; G89.29 Other chronic pain; E11.9 Type 2 diabetes mellitus without complications; I10 Essential (primary) hypertension
CPT/HCPCS: 36415; 71046; 71275; 80053; 81025; 83690; 85025; 85379; 93005; 94640; 96360; 96361; 99283; 99284; A9270; J7512; Q9967

== ENCOUNTER 2018-05-03 00:30 | Outpatient (CLI) | payer MEDICAID | END 2018-05-03 00:31 | disposition critical access hospital (66) | LOC: EMS 00:30 | PROVIDERS: ATTEND Surgery | DX: R07.1 Chest pain on breathing (principal) | CPT/HCPCS: A0425; A0429; A0999 ==

== ENCOUNTER 2018-05-03 00:47 | Emergency (ER) | payer MEDICAID ==
[2018-05-03] MEDS ORDERED: IPRATROPIUM/ALBUTEROL 3 ML NEB INH STA (00:59)
[2018-05-03] MEDS ORDERED: diazePAM 5 MG TABLET PO STA (00:59)
--- NOTE | 2018-05-03 01:08 | ED Physician Documentation ---
History of Present Illness - Stated complaint Stated Complaint: CP - Chief complaint Chief Complaint: Resp - History obtained from History obtained from: Patient - Additonal information Additional information: 28-year-old female who was recently seen in the emergency department for similar symptoms. The patient reports ongoing right-sided chest pain. Worse with deep inspiration. The patient had a CT angiogram which showed concern for pneumonia, there is no evidence of PE and the patient did have multiple pulmonary nodules. The patient will be following up with primary care for those findings. The patient reports back to the emergency department with ongoing pain. The patient also reports feeling short of breath. No triggering factors. No other associated symptoms. 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 HEENT: None Psych: Depression, Anxiety Musculoskeletal: Chronic back pain - Past Surgical History Past Surgical History: Yes /ENROLLMENT COUNSELOR: section HEENT: Tonsil/Adenoidectomy - Present Medications Home Medications: Ambulatory Orders Medication Instructions Recorded Confirmed buPROPion [Wellbutrin Sr] 150 mg PO BID 03/04/16 05/03/18 traZODone [Desyrel] 400 mg PO DAILY 02/25/17 05/03/18 Albuterol Sulf [Ventolin Hfa 1 - 2 puffs INH Q4HR PRN #1 inhaler 05/01/18 05/03/18 Inhaler] Cyclobenzaprine [Flexeril] 10 mg PO TID PRN #20 tablet 05/01/18 05/03/18 Doxycycline Hyclate 100 mg PO BID #20 capsule 05/01/18 05/03/18 Ibuprofen [Motrin] 400 mg PO Q8H PRN 05/01/18 05/03/18 Lorazepam [Ativan] 1 mg PO Q8HR PRN 05/01/18 05/03/18 Oxycodone HCl/Acetaminophen 1 - 2 each PO Q6H PRN #14 tablet 05/01/18 05/03/18 [Percocet 5-325 mg Tablet] predniSONE [Prednisone] 60 mg PO DAILY #12 tablet 05/01/18 05/03/18 diazePAM [Valium] 5 mg PO TID PRN #10 tablet 05/03/18 - Allergies Allergies/Adverse Reactions: Allergies Allergy/AdvReac Type Severity Reaction Status Date / Time No Known Drug Allergies Allergy Verified 05/03/18 00:52 - Social History Does the pt smoke?: No Smoking Status: Never smoker Does the pt drink ETOH?: No Does the pt have substance abuse?: No - Immunizations Immunizations are current?: Yes Immunizations: TDAP >10years/unknown - POLST Patient has POLST: No PD ED PE NORMAL - General General: Alert and oriented X 3 - HEENT HEENT: Atraumatic, PERRL, EOMI, Ears normal - Neck Neck: Supple, no meningeal sign - Cardiac Cardiac: RRR, Strong equal pulses - Respiratory Respiratory: No respiratory distress, Clear bilaterally - Abdomen Abdomen: Soft, Non tender - Derm Derm: Normal color - Extremities Extremities: No deformity - Neuro Neuro: Alert and oriented X 3, Normal speech - Psych Psych: Normal mood Results - Vitals Vitals: Vital Signs - 24 hr 05/03/18 05/03/18 05/03/18 00:50 01:22 01:38 Temperature 36.7 C Heart Rate 84 73 78 Respiratory 20 20 18 Rate Blood Pressure 136/87 H 113/46 L O2 Saturation 97 98 Oxygen O2 Source Room air - EKG (time done) 01:04 Rate: Rate (enter#) Rhythm: NSR Intervals: Normal NV, QRS normal Ischemia: Normal ST segments - Labs Labs: Laboratory Tests 05/03/18 05/03/18 05/03/18 01:24 01:24 01:24 WBC 14.3 H RBC 3.98 L Hgb 12.3 Hct 35.5 L MCV 89.3 MCH 30.9 MCHC 34.6 RDW 12.9 Plt Count 273 MPV 7.5 L Neut # (Auto) 10.2 H Lymph # (Auto) 2.8 [place] # (Auto) 1.1 H Eos # (Auto) 0.1 Baso # (Auto) 0.1 Absolute Nucleated RBC 0.01 Nucleated RBC % 0.1 Sodium 135 Potassium 3.1 L Chloride 99 L Carbon Dioxide 25 Anion Gap 11.0 BUN 17 Creatinine 0.9 Estimated GFR (MDRD) 74 L Glucose 134 H Lactic Acid 0.9 Calcium 9.0 Total Bilirubin 0.3 AST 15 ALT 18 Alkaline Phosphatase 53 Total Protein 7.6 Albumin 4.0 Globulin 3.6 Albumin/Globulin Ratio 1.1 Lipase 24 - Rads (name of study) CXR Radiology: Final report received, See rad report (1. Borderline heart size. 2. Focal right lung opacity seen on the prior exam is somewhat less well seen on the current study. ) PD MEDICAL DECISION MAKING - ED course ED course: The patient's x-ray does not show evidence of any worsening of her findings from the other day. The patient had a CT scan just 2 days ago which did not show evidence of PE and currently I do not think repeating a CT scan would be very much utility. The patient's symptoms seem to be secondary to a pleurisy. Presently, the patient is showing no evidence of respiratory distress or hypoxia or has any indication for admission to the hospital. The patient will be discharged home. The patient reports ongoing muscle spasms with coughing. I will write for a prescription for a muscle relaxer to help at home. The patient will return to the emergency department for any worsening or any concerns. The patient will follow up with primary care for ongoing evaluation and follow-up on the findings on the CT scan. Departure - Departure Disposition: 01 Home, Self Care Clinical Impression: Pleurisy Pneumonia Qualifiers: Pneumonia type: due to unspecified organism Laterality: unspecified laterality Lung location: unspecified part of lung Qualified Code(s): J18.9 - Pneumonia, unspecified organism Condition: Good Instructions: ED Chest Pain Pleurisy, ED Pneumonia Ch Prescriptions: diazePAM [Valium] 5 mg PO TID PRN #10 tablet PRN Reason: Spasms Comments: Please return to the emergency department for worsening symptoms or any concerns
--- NOTE | 2018-05-03 01:29 | XRAY Report ---
Reason: cp Procedure Date: 05/03/2018 Accession Number: [id number] / [id number] Procedure: XR - Chest 2 View X-Ray CPT Code: 72776 FULL RESULT: EXAM: CHEST RADIOGRAPHY EXAM DATE: 05/03/2018 01:22 AM. CLINICAL HISTORY: Chest pain. COMPARISON: CHEST 2 VIEW 05/01/2018 4:05 AM. TECHNIQUE: 2 views. FINDINGS: Lungs/Pleura: Focal right lung opacity seen on the prior exam is somewhat less well seen on the current study. No new alveolar consolidation or pleural effusion is seen. No pneumothorax is noted. Mediastinum: Heart size upper normal. Other: None. IMPRESSION: 1. Borderline heart size. 2. Focal right lung opacity seen on the prior exam is somewhat less well seen on the current study. [facility]
[2018-05-03 01:32] LABS: BASOPHILS # (AUTO) 0.1 10^3/uL (0.0-0.1); BASOPHILS % (AUTO) 0.5 %; EOSINOPHILS # (AUTO) 0.1 10^3/uL (0.0-0.7); EOSINOPHILS % (AUTO) 0.9 %; HGB - HEMOGLOBIN 12.3 g/dL (12.0-16.0); LYMPHOCYTES # (AUTO) 2.8 10^3/uL (1.5-3.5); LYMPHOCYTES % (AUTO) 19.5 %; MEAN CORPUSCULAR HEMOGLOBIN 30.9 pg (27.0-31.0); MEAN CORPUSCULAR HGB CONC 34.6 g/dL (32.0-36.0); MEAN CORPUSCULAR VOLUME 89.3 fL (81.0-99.0); MEAN PLATELET VOLUME 7.5 fL (7.9-10.8); MONOCYTES # (AUTO) 1.1 10^3/uL (0.0-1.0); MONOCYTES % (AUTO) 7.8 %; NEUTROPHILS # (AUTO) 10.2 10^3/uL (1.5-6.6); NEUTROPHILS % (AUTO) 71.3 %; PLT - PLATELET COUNT 273 10^3/uL (130-450); RED BLOOD COUNT 3.98 10^6/uL (4.20-5.40); RED CELL DISTRIBUTION WIDTH 12.9 % (12.0-15.0); WHITE BLOOD COUNT 14.3 x10^3/uL (4.8-10.8)
[2018-05-03 01:39] VITALS: BP 113/46
[2018-05-03 01:42] LABS: ALBUMIN/GLOBULIN RATIO 1.1 (1.0-2.2); BILIRUBIN,TOTAL 0.3 mg/dL (0.2-1.0); CREATININE 0.9 mg/dL (0.4-1.0); TOTAL PROTEIN 7.6 g/dL (6.7-8.2)
[2018-05-03] MEDS ORDERED: POTASSIUM CHLORIDE 20 MEQ TABLET PO STA (01:45)
== END 2018-05-03 01:57 | disposition home or self-care (01) ==
LOC: EDUNIT# → ED 00:47
DX: J18.9 Pneumonia, unspecified organism (principal); I45.81 Long QT syndrome; I10 Essential (primary) hypertension; E11.9 Type 2 diabetes mellitus without complications; M62.838 Other muscle spasm
CPT/HCPCS: 36415; 71046; 80053; 83605; 83690; 85025; 93005; 94640; 94664; 99283

== ENCOUNTER 2018-05-20 08:00 | Outpatient (CLI) | payer MEDICAID | END 2018-05-20 23:59 | disposition home or self-care (01) | LOC: LAB.R 08:00 | PROVIDERS: ATTEND Obstetrics & Gynecology | DX: L29.8 Other pruritus (principal) | CPT/HCPCS: 87480; 87491; 87510; 87591; 87660 ==

== ENCOUNTER 2018-08-05 12:08 | Outpatient (CLI) | payer MEDICAID | END 2018-08-05 23:59 | disposition home or self-care (01) | LOC: LAB.R 12:08 | PROVIDERS: ATTEND Obstetrics & Gynecology | DX: Z01.419 Encounter for gynecological examination (general) (routine) without abnormal findings (principal) | CPT/HCPCS: 87491; 87591 ==

== ENCOUNTER 2018-10-04 13:46 | Outpatient (CLI) | payer MEDICAID ==
--- NOTE | 2018-10-04 14:54 | XRAY Report ---
Reason: PNEUMONIA Procedure Date: 10/04/2018 Accession Number: [id number] / [id number] Procedure: XRN - Chest 2 View X-Ray CPT Code: 60028 FULL RESULT: EXAM: CHEST RADIOGRAPHY EXAM DATE: 10/04/2018 02:07 PM. CLINICAL HISTORY: Pneumonia. COMPARISON: CHEST 2 VIEW 05/03/2018 1:08 AM CHEST ANGIO 05/01/2018 1:53 PM CHEST 2 VIEW 05/01/2018 4:05 AM. TECHNIQUE: 2 views. FINDINGS: Lungs/Pleura: Peripheral right midlung opacity has resolved in the interval. Prominent lung markings in the medial right lung base. No pleural effusions. No pneumothorax. Mediastinum: Heart size and mediastinal contour are within normal limits. Other: Mild degenerative changes thoracic spine. IMPRESSION: 1. Resolved right midlung opacity. 2. Prominent right medial basal lung markings. RAD[facility]
== END 2018-10-04 13:47 | disposition home or self-care (01) ==
LOC: DI.N 13:46
PROVIDERS: ATTEND Physician Assistant Medical
DX: J18.9 Pneumonia, unspecified organism (principal)
CPT/HCPCS: 71046

== ENCOUNTER 2018-10-06 08:00 | Outpatient (CLI) | payer MEDICAID ==
[2018-10-06 18:49] LABS: CANDIDA GROUP DNA NEGATIVE (NEGATIVE); CANDIDA KRUSEI DNA NEGATIVE (NEGATIVE); TRICHOMONAS VAGINALIS DNA NEGATIVE (NEGATIVE)
[2018-10-06 20:06] LABS: TRICHOMONAS VAGINALIS DNA NEGATIVE (NEGATIVE)
== END 2018-10-06 08:01 | disposition home or self-care (01) ==
LOC: LAB.R 08:00
PROVIDERS: ATTEND Nurse Practitioner Obstetrics & Gynecology
DX: N76.0 Acute vaginitis (principal)
CPT/HCPCS: 87491; 87591; 87661; 87801

== ENCOUNTER 2018-10-06 12:00 | Outpatient (CLI) | payer MEDICAID ==
[2018-10-07 14:37] LABS: HIV AG/AB 4TH GEN NON-REACTIVE (NON-REACTIVE)
[2018-10-08 12:11] LABS: HSV 1 IGG TYPE SPECIFIC AB <0.90 index; HSV 2 IGG TYPE SPECIFIC AB 7.31 index
[2018-10-08 12:52] LABS: HCV RNA QNT <1.18 NOT DETECTED Log IU/mL (NOT DETECTED); HCV RNA QUANT RT PCR <15 NOT DETECTED IU/mL (NOT DETECTED)
== END 2018-10-06 12:01 | disposition home or self-care (01) ==
LOC: LAB 12:00
PROVIDERS: ATTEND Nurse Practitioner Obstetrics & Gynecology
DX: Z11.3 Encounter for screening for infections with a predominantly sexual mode of transmission (principal); N76.0 Acute vaginitis
CPT/HCPCS: 36415; 81599; 86592; 86695; 86696; 87389; 87491; 87522; 87591; 87661; 87801

== ENCOUNTER 2018-11-02 13:21 | Outpatient (CLI) | payer MEDICAID | END 2018-11-02 13:22 | disposition home or self-care (01) | LOC: SC 13:21 | PROVIDERS: ATTEND Nurse Practitioner Family | DX: G47.10 Hypersomnia, unspecified (principal); R06.81 Apnea, not elsewhere classified; R06.83 Snoring; G47.8 Other sleep disorders; R41.89 Other symptoms and signs involving cognitive functions and awareness | CPT/HCPCS: 99204; 99212 ==

== ENCOUNTER 2018-11-20 19:19 | Outpatient (CLI) | payer MEDICAID | END 2018-11-20 19:20 | disposition home or self-care (01) | LOC: SC 19:19 | PROVIDERS: ATTEND Internal Medicine Pulmonary Disease | DX: G47.10 Hypersomnia, unspecified (principal) | CPT/HCPCS: 95810 ==

== ENCOUNTER 2018-11-24 15:24 | Outpatient (CLI) | payer MEDICAID | END 2018-11-24 15:25 | disposition home or self-care (01) | LOC: LAB 15:24 | PROVIDERS: ATTEND Physician Assistant Medical | DX: E66.01 Morbid (severe) obesity due to excess calories (principal) | CPT/HCPCS: 36415; 84443 ==

== ENCOUNTER 2018-12-08 15:07 | Outpatient (CLI) | payer MEDICAID ==
--- NOTE | 2018-12-08 15:48 | SLEEP CARE CONSULTATION ---
Information from patient questionnaire entered by Joselyn Sears. I have reviewed and concur with the information entered by Joselyn Sears. This document represents the service I personally performed and the decisions made by me, Anjali Copeland RN, MSN, TELEMARKETING REPRESENTATIVE. History of Present Illness Initial [place] Sleepiness Scale score: 2 Current [place] Sleepiness Scale score: 7 Additional HPI information: EDIE BHATIA returns for follow up of the recently performed polysomnography and I reviewed results. I explained the pathophysiology behind obstructive sleep apnea. Patient does not have sleep apnea and was advised how weight gain could increase the risk of developing sleep apnea in the future. I strongly encouraged the patient to lose weight. Patient has tried to lose weight and will be successful for a while and then regain weight and more. She would love to be successful in losing significant weight with a goal of losing at least 100 pounds. Patient has snoring. Snoring can be reduced by weight loss. Weight loss is best achieved with diet consult. Patient instructed to contact PCP for referral. Snoring can also be treated with an oral appliance from a dentist. Advised to check insurance coverage. In addition, an ENT evaluation can be do to see if other treatment is indicated. Patient counseled not drink alcohol less than 4 hours before bedtime as it can increase snoring and apnea. Patient does not drink alcohol. Patient was cautioned about risks of drowsy driving until sleepiness symptoms resolve. Patient denies drowsy driving. [facility] [place] patient education on snoring and sleep apnea given and reviewed. Sleep Study - Polysomnography Polysomnography findings: The quality of the study is good. The patient had reduced sleep efficiency due to a prolonged awakening in the middle of the night. The sleep architecture was otherwise normal. Respiratory monitoring showed no significant sleep disordered breathing (AHI = 2.2) or hypoxia (radha oxygen saturation of 89%). The few respiratory events occurred mainly during supine REM sleep (supine AHI = 2.9; non-supine = 0.96). Snore was infrequent and light in intensity. There was no periodic leg movement of sleep. Cardiac rhythm was normal sinus rhythm without significant arrhythmia. No abnormal behavior (parasomnia) observed during the night. Allergies and Home Medications Known drug allergies: No Home medication list reviewed: Yes Allergy and home medication list: Lorazepam 1mg HS Metformin 1000mg twice a day. fluoxetine 10mg Review of Systems Review of systems same as previous: No (Increased fatigue with new antidepressant but reduced food craving. ) Physical Exam Blood Pressure: 120/70 Cuff size: long Heart Rate: 63 O2 Saturation: 98 Height: 5 ft 4.25 in Weight (kg): 351 lb Weight change since last visit: lost 9 pounds Body Mass Index: 59.8 BMI Classification: Class 3 Impression and Plan Snoring but no significant sleep disordered breathing. Patient advised that often weight loss will reduce snoring as well as apnea risk. An oral appliance can also be used for snoring. This would require a dental consultation. Patient cautioned not to use other online appliances as can cause bite issues. A list of accredited dentists in area and one local dentist who makes oral appliances give n. Patient is advised to check if insurance will cover. An ENT consult can also be helpful to determine if any other treatment is an option. However, patient's snore is light only so weight loss would be best. Since she has had difficulty losing weight. A diet consultation is strongly advised as optimal weight loss goals are best achieved with the guidance and coaching of a equipment coordinator. Patient is very motivated to lose weight but frustrated with past failure to lose weight. * Diet consultation by PCP * Attempt to lose weight * Avoid alcohol consumption near bedtime * The patient is cautioned about driving until sleepiness is completely resolved. * Return as needed. I spent 100% of this 27 minute visit face to face with the patient with greater than 50% of this was spent time counseling the patient and coordination of care.
[2018-12-08 15:49] VITALS: BP 120/70
== END 2018-12-08 15:08 | disposition home or self-care (01) ==
LOC: SC 15:07
PROVIDERS: ATTEND Nurse Practitioner Family
DX: R06.83 Snoring (principal)
CPT/HCPCS: 99212; 99214

== ENCOUNTER 2019-04-07 07:00 | Outpatient (CLI) | payer MEDICAID | END 2019-04-07 23:59 | disposition home or self-care (01) | LOC: LAB.R 07:00 | PROVIDERS: ATTEND Obstetrics & Gynecology | DX: N39.0 Urinary tract infection, site not specified (principal) | CPT/HCPCS: 87086 ==

== ENCOUNTER 2019-04-12 08:00 | Outpatient (CLI) | payer MEDICAID ==
[2019-04-14 18:12] LABS: CANDIDA GROUP DNA NEGATIVE (NEGATIVE); CANDIDA KRUSEI DNA NEGATIVE (NEGATIVE); TRICHOMONAS VAGINALIS DNA NEGATIVE (NEGATIVE)
== END 2019-04-12 23:59 | disposition home or self-care (01) ==
LOC: LAB.R 08:00
PROVIDERS: ATTEND Obstetrics & Gynecology
DX: L29.8 Other pruritus (principal)
CPT/HCPCS: 87661; 87801

== ENCOUNTER 2019-04-27 07:00 | Outpatient (CLI) | payer MEDICAID ==
[2019-04-27 21:30] LABS: CANDIDA GROUP DNA NEGATIVE (NEGATIVE); CANDIDA KRUSEI DNA NEGATIVE (NEGATIVE); TRICHOMONAS VAGINALIS DNA NEGATIVE (NEGATIVE)
[2019-04-27 22:26] LABS: TRICHOMONAS VAGINALIS DNA NEGATIVE (NEGATIVE)
== END 2019-04-27 23:59 | disposition home or self-care (01) ==
LOC: LAB.R 07:00
PROVIDERS: ATTEND Nurse Practitioner Obstetrics & Gynecology
DX: Z11.3 Encounter for screening for infections with a predominantly sexual mode of transmission (principal); R31.9 Hematuria, unspecified; N89.8 Other specified noninflammatory disorders of vagina; M54.9 Dorsalgia, unspecified
CPT/HCPCS: 87086; 87491; 87591; 87661; 87801

== ENCOUNTER 2019-04-27 10:56 | Outpatient (CLI) | payer MEDICAID ==
[2019-04-28 13:54] LABS: HIV AG/AB 4TH GEN NON-REACTIVE (NON-REACTIVE)
== END 2019-04-27 10:57 | disposition home or self-care (01) ==
LOC: LAB 10:56
PROVIDERS: ATTEND Nurse Practitioner Obstetrics & Gynecology
DX: Z11.3 Encounter for screening for infections with a predominantly sexual mode of transmission (principal)
CPT/HCPCS: 36415; 81599; 86317; 86592; 87086; 87389; 87491; 87522; 87591; 87661; 87801

== ENCOUNTER 2019-05-03 08:40 | Outpatient (CLI) | payer MEDICAID ==
--- NOTE | 2019-05-03 21:39 | CT Report ---
Reason: HEMATURIA Procedure Date: 05/03/2019 Accession Number: [id number] / [id number] Procedure: CT - Abdomen/Pelvis WO CPT Code: Final Report FULL RESULT: EXAM: CT ABDOMEN AND PELVIS (CT KUB) EXAM DATE: 05/03/2019 09:11 AM. CLINICAL HISTORY: HEMATURIA. COMPARISONS: None. TECHNIQUE: Routine axial helical CT imaging was performed through the abdomen and pelvis without IV contrast. Reconstructions: Coronal and sagittal. In accordance with CT protocol optimization, one or more of the following dose reduction techniques were utilized for this exam: automated exposure control, adjustment of mA and/or KV based on patient size, or use of iterative reconstructive technique. FINDINGS: Lung Bases: Unremarkable. Right Kidney/Ureter: No stones, hydronephrosis, or hydroureter. No perinephric fat stranding. Left Kidney/Ureter: No stones, hydronephrosis, or hydroureter. No perinephric fat stranding. Other Solid Organs: Noncontrast images of the solid organs are grossly unremarkable. Gallbladder/Bile Ducts: Unremarkable. Peritoneal Cavity: No free fluid, free air or lee adenopathy. Bowel is grossly unremarkable. Pelvic Organs: Decompressed urinary bladder. Intrauterine device appears low in the uterus with arms projecting into the myometrium. Unremarkable ovaries. Vasculature: Unremarkable. Other: None. IMPRESSION: 1. Negative for urinary tract stone or hydronephrosis. 2. Possible malpositioned IUD. Ultrasound correlation is recommended. RADIA
== END 2019-05-03 08:41 | disposition home or self-care (01) ==
LOC: DI 08:40
PROVIDERS: ATTEND Nurse Practitioner Obstetrics & Gynecology
DX: R31.9 Hematuria, unspecified (principal); M54.89 Other dorsalgia; Z97.5 Presence of (intrauterine) contraceptive device
CPT/HCPCS: 74176

== ENCOUNTER 2019-05-18 08:43 | Outpatient (CLI) | payer MEDICAID ==
--- NOTE | 2019-05-18 19:29 | Ultrasound Report ---
Reason: LYMPHADENOPATHY AXILLA, BREAST PAIN RT Procedure Date: 05/18/2019 Accession Number: [id number] / [id number] Procedure: US - Breast Unilateral Limited CPT Code: Final Report FULL RESULT: EXAM: Breast Unilateral Limited DATE: 05/18/2019 9:31 AM CLINICAL HISTORY: LYMPHADENOPATHY AXILLA. RIGHT BREAST PAIN AND PEA-SIZED LUMP 3:00 POSITION. RIGHT BREAST PAIN 7:00 POSITION WITH FATTY TISSUE. COMPARISON: None. TECHNIQUE: Targeted ultrasound was performed of the right breast in the area of clinical concern at 3 and 7 o'clock and the axilla. Color Doppler was employed as appropriate. FINDINGS: 1. Right axilla: 1 subcentimeter normal-appearing lymph node. No pathologically enlarged lymph nodes identified. 2. 3:00 position 4 cm from the nipple: 1 x 0.8 x 0.7 cm avascular echogenic nodule, likely a small lipoma. 3. 7:00 position 2 cm from the nipple: 1.1 x 1 x 1.2 cm avascular echogenic nodule, likely a small lipoma. 4. No suspicious cystic or solid mass or abnormal fluid collection identified at the areas scanned. IMPRESSION: Benign findings RECOMMENDATION: Baseline screening mammography at age 33. Clinical follow-up of the right breast and right axillary areas of concern. BIRADS CATEGORY 2: Benign findings RADIA
== END 2019-05-18 08:44 | disposition home or self-care (01) ==
LOC: DI 08:43
PROVIDERS: ATTEND Physician Assistant Medical
DX: R59.0 Localized enlarged lymph nodes (principal); N64.4 Mastodynia; N63.13 Unspecified lump in the right breast, lower outer quadrant; N63.15 Unspecified lump in the right breast, overlapping quadrants
CPT/HCPCS: 76642

== ENCOUNTER 2019-05-18 09:44 | Day surgery (SDC) | payer MEDICAID ==
--- NOTE | 2019-05-17 19:20 | HISTORY & PHYSICAL EXAMINATION ---
HPI - History of Present Illness HPI Comment/Other: HPI: Pt is here today to discuss possibility of her IUD in her myonetrium. Pt reports she went to ER in [place] last Thursday and has pain and a bruise in her lower back. Pt reports has been having some pain with intercourse for past two months. Reports ER couldn't find the string to her Mirena. Pt is in tears today due to the pain. Pt reports going to PCP Solomon Bennett yesterday and he gave her some muscle relaxers but hasn't felt any relief. ...................................................................GIOVANNA Saxena May 12, 2019 2:40 PM Patient is a 29 yo here for consultation regarding removal of her IUD. She has a high level of anxiety and refuses an exam today. She [facility]. She has reported UTI but cultures have been negative She has had hematuria. On 04/27/19, she presented for STD evaluation and was sent for CT scan given the hematuria. Her IUD, placed 04/2018, was noted to be sitting low in the uterus with the arms in the myometrium. Pelvic us confirmed malposition to be likely. She has since developed back pain and some bruising over the coccyx area. She reports she is in significant pain She declines pelvic exam and removal in clinic today. She wants to proceed with removal under anesthesia. She has used Nexplanon several times in the past and had issues with migration. She does not want a replacement IUD. She is very anxious and tearful. She does agree to EUA vs hysteroscopic removal of the IUD and possible laparascopc removal in the setting of complete perforation. Current Allergies: No Known Allergies Current Meds: CYCLOBENZAPRINE HCL 10 MG ORAL TABLET (CYCLOBENZAPRINE HCL) Take one tablet by mouth up to three times daily as needed for muscle spasms; Route: ORAL TRAZODONE HCL 100 MG ORAL TABLET (TRAZODONE HCL) Take one to two tablets by mouth at bedtime as needed for insomnia; Route: ORAL VYVANSE 40 MG ORAL CAPSULE (LISDEXAMFETAMINE DIMESYLATE) Take one tablet by mouth each day; Route: ORAL DICLOFENAC SODIUM 1 % TRANSDERMAL GEL (DICLOFENAC SODIUM) Apply 2-4 grams to affected areas four times daily as needed for pain; Route: TRANSDERMAL FLUCONAZOLE 150 MG ORAL TABLET (FLUCONAZOLE) take 1 tab; Route: ORAL LORAZEPAM 1 MG ORAL TABLET (LORAZEPAM) Take one tablet by mouth daily at night; Route: ORAL VALACYCLOVIR HCL 1 GM ORAL TABLET (VALACYCLOVIR HCL) Take one tablet by mouth twice daily for 5 days; Route: ORAL METFORMIN 1000MG TABLETS (METFORMIN HCL) TAKE 1 TABLET BY MOUTH TWICE DAILY ALBUTEROL 0.021%(0.63MG/3ML) 25X3ML (ALBUTEROL SULFATE) Use one vial vial nebulizer every 4 hours as needed for wheeze * SPACER dx: reactive airway disease J45.909 FLOVENT DISKUS 250 MCG/BLIST INHALATION AEROSOL POWDER BREATH ACTIVATED (FLUTICASONE PROPIONATE (INHAL)) Inhale one actuation twice daily; Route: INHALATION PROAIR HFA 108 (90 BASE) MCG/ACT INHALATION AEROSOL SOLUTION (ALBUTEROL SULFATE) 2 puffs orally up to every 4 hrs as needed for wheezing; Route: INHALATION MIRENA (52 MG) INTRAUTERINE DEVICE (LEVONORGESTREL IUD) placed 06/2018 Allergies: No Known Allergies Medications: CYCLOBENZAPRINE HCL 10 MG ORAL TABLET (CYCLOBENZAPRINE HCL) Take one tablet by mouth up to three times daily as needed for muscle spasms; Route: ORAL TRAZODONE HCL 100 MG ORAL TABLET (TRAZODONE HCL) Take one to two tablets by mouth at bedtime as needed for insomnia; Route: ORAL VYVANSE 40 MG ORAL CAPSULE (LISDEXAMFETAMINE DIMESYLATE) Take one tablet by mouth each day; Route: ORAL DICLOFENAC SODIUM 1 % TRANSDERMAL GEL (DICLOFENAC SODIUM) Apply 2-4 grams to affected areas four times daily as needed for pain; Route: TRANSDERMAL FLUCONAZOLE 150 MG ORAL TABLET (FLUCONAZOLE) take 1 tab; Route: ORAL LORAZEPAM 1 MG ORAL TABLET (LORAZEPAM) Take one tablet by mouth daily at night; Route: ORAL VALACYCLOVIR HCL 1 GM ORAL TABLET (VALACYCLOVIR HCL) Take one tablet by mouth twice daily for 5 days; Route: ORAL METFORMIN 1000MG TABLETS (METFORMIN HCL) TAKE 1 TABLET BY MOUTH TWICE DAILY ALBUTEROL 0.021%(0.63MG/3ML) 25X3ML (ALBUTEROL SULFATE) Use one vial vial nebulizer every 4 hours as needed for wheeze * SPACER dx: reactive airway disease J45.909 FLOVENT DISKUS 250 MCG/BLIST INHALATION AEROSOL POWDER BREATH ACTIVATED (FLUTICASONE PROPIONATE (INHAL)) Inhale one actuation twice daily; Route: INHALATION PROAIR HFA 108 (90 BASE) MCG/ACT INHALATION AEROSOL SOLUTION (ALBUTEROL SULFATE) 2 puffs orally up to every 4 hrs as needed for wheezing; Route: INHALATION MIRENA (52 MG) INTRAUTERINE DEVICE (LEVONORGESTREL IUD) placed 06/2018 Problems: Preop exam (ICD-V72.84) (LYG57-T51.818) Back pain (ICD-724.5) (KYB71-G83.9) Intrauterine contraceptive device (ICD-V45.51) (VLB37-Y99.5) Urinary incontinence (ICD-788.30) (OSR58-B47) Vaginal odor (ICD-623.8) (YMO26-R04.8) Lymphadenopathy, axilla (ICD-785.6) (VKV61-Y04.0) Breast pain, right (ICD-611.71) (QSP13-W95.4) UTI, acute (ICD-599.0) (JUY60-C17.0) Sinusitis (ICD-473.9) (WDZ09-I39.9) Knee pain, left (ICD-719.46) (KCT09-B00.562) Medication management (ICD-V68.89) (ZQG08-E10.89) Asthma exacerbation (ICD-493.92) (XQJ75-O61.901) URI - acute (ICD-465.9) (KPZ88-R07.9) Skin lesion (ICD-709.9) (AUH67-Z95.9) Screening for std (ICD-V74.5) (GBP41-G39.3) Dysuria (ICD-788.1) (FRX01-P09.0) Vaginitis (ICD-616.10) (YLQ36-B73.0) PNEUMONIA (ICD-486) (ZVN46-A11.9) Asthma exacerbation (ICD-493.92) (ZUB27-H95.901) Sleep apnea (ICD-780.57) (QTV10-V33.30) Pulmonary Physician well woman exam (ICD-V72.31) (TXY22-G42.419) Reactive airway disease (ICD-493.90) (IFU97-Z86.909) IUD check (ICD-V25.42) (NVQ33-H33.431) Contraception (ICD-V25.09) (NUL87-W98.9) Nasal congestion (ICD-478.19) (LZQ55-C08.81) Vaginal itching (ICD-698.1) (MJV52-A59.8) Premenopausal menorrhagia (ICD-627.0) (JIS76-F72.4) Infertility, anovulatory (ICD-628.0) (BQS35-N53.0) Morbid obesity (ICD-278.01) (DOH17-Z46.01) Polycystic ovary syndrome (ICD-256.4) (SAU34-B66.2) Hepatic cyst (ICD-573.8) (RJL91-Q56.89) Pulmonary nodule (ICD-518.89) (XLD76-I47.4) Arm pain, left (ICD-729.5) (MKD20-D47.602) Implantable subdermal contraceptive removal (ICD-V25.43) (IEY30-T03.49) Pelvic pain (ICD-625.9) (DMP44-T14.2) Contraceptive advise (ICD-V65.49) (PWL10-K87.89) Maxillary sinusitis (ICD-473.0) (PRW08-M88.0) Rotator cuff deficit (ICD-726.10) (DHP98-R61.819) Sinus pain (ICD-478.19) (IZR37-A93) Irritation of left eye (ICD-379.99) (CDE21-S16.8) Urinary tract infection, acute (ICD-599.0) (CGH24-M74.0) Dermatitis (ICD-692.9) (CAI94-M86.9) Otalgia, right (ICD-388.70) (WLK37-P75.01) Carpal tunnel syndrome, bilateral upper limbs (MIJ89-L66.03) Plantar fasciitis, right (ICD-728.71) (RRR88-H69.2) Irritant contact dermatitis (ICD-692.9) (ENW85-Z59.9) Calcaneal spur of right foot (ICD-726.73) (NLW43-Y22.31) Body mass index (BMI) 50-59.9 , adult (ICD-V85.43) (GXM71-D70.43) Dietary counseling and surveillance (ICD-V65.3) (RGU50-K73.3) Weight loss counseling (ICD-V65.3) (LSM90-E57.89) Heel pain, right (ICD-729.5) (UVC64-G93.671) Strain of extensor or abductor muscles, fascia and tendons of left thumb at forearm level, initial encounter (ICD-727.63) (SFQ14-Z09.312A) Neurological disorders (KCN32-E58.8) Sprain of metacarpophalangeal joint of left middle finger, sequela (ICD-905.7) (OLR57-T01.653S) Vitamin D deficiency (ICD-268.9) (AFK35-P23.9) Hip joint pain, left (ICD-719.45) (JGI92-G41.552) Obesity (ICD-278.00) (AJG56-L34.9) Headache (ICD-784.0) (HMX78-X75) Bronchiolitis due to RSV (ICD-466.11) (ZWK18-H64.0) Depression (ICD-311) (ZOT15-L37.9) Migraine headache (ICD-346.90) (NBE35-S83.909) Hip joint pain, right (ICD-719.45) (VNU28-U95.551) Strain of muscle, fascia and tendon of abdomen, initial encounter (ICD-848.8) (IJZ55-A16.011A) Muscle strain (ICD-848.9) (LDG23-M11.8) Pain in left hand (ICD-729.5) (WIM14-A07.642) Acanthosis nigricans (ICD-701.2) (OWP23-R08) Anxiety (ICD-300.00) (DDE82-P86.9) Foot pain, left (ICD-729.5) (UPG20-F52.672) [Family History-CCC] Risk Factors: Smoked Tobacco Use: Former smoker Cigarettes: Yes HIV High Risk Behavior: no Caffeine Use: 2 drinks per day Exercise: no Seatbelt Use: 100 % Sun Exposure: rarely Alcohol Use: yes Type: social Drinks per day: social Drug Use: yes Drug of Choice: marijuana Vital Signs: Patient Profile: 29 Years Old Female Height: 64.75 inches Weight: 364 pounds BMI: 61.26 BP sittin / 90 Cuff size: large Vitals Entered By: GIOVANNA Saxena (May 12, 2019 2:17 PM) Meds Reviewed: Done Allergies Reviewed: Done No known allergies: T Questionnaire Would you like to become in the next year? No Are you currently using contraception? Yes Current contraception: Mirena IUD Past Medical History: Previous Anxiety Migraines Depression Neurological disorders Obesity Dermatitis Plantar Fasciitis CTS-Bilateral Past Surgical History: C Section Toe Surgery Tonsillectomy PULP GRINDER AND BLENDER Review of Systems ROS Comments: As per HPI, otherwise remaining systems are negative. Physical Constitutional: obese appearing, appears in distress. very tearful Skin: normal turgor. Back shows area of light blue/yellow discoloration over coccyx Head: atraumatic, normocephalic. Cardiovascular: RRR. Respiratory: no respiratory distress, clear to auscultation. Extremities: no deformities. Neurologic: normal. Psych: tearful, poor eye contact. high level of anxiety Impression & Recommendations: Problem # 1: Intrauterine contraceptive device (ICD-V45.51) (BGT32-I89.5) Orders: PRE OP -51323 (CPT-29607) Patient reports back pain and us shows malpositioned IUD Unable to tolerate exam in clinic Will proceed to OR for exam under anesthesia with removal of IUD and possible hysteroscopic or laparoscopic retrieval of IUD R/B/A reviewed Risks include, but are not limited to, bleeding, infection, and damage to nearby tissue and organs. Written informed consent was obtained Not addressed at this visit: recommend urology consult for ongoing hematuria with negative urine cultures and CT imaging Patient Portal: [id number] Current Allergies: No Known Allergies Current Meds: CYCLOBENZAPRINE HCL 10 MG ORAL TABLET (CYCLOBENZAPRINE HCL) Take one tablet by mouth up to three times daily as needed for muscle spasms; Route: ORAL TRAZODONE HCL 100 MG ORAL TABLET (TRAZODONE HCL) Take one to two tablets by mouth at bedtime as needed for insomnia; Route: ORAL VYVANSE 40 MG ORAL CAPSULE (LISDEXAMFETAMINE DIMESYLATE) Take one tablet by mouth each day; Route: ORAL DICLOFENAC SODIUM 1 % TRANSDERMAL GEL (DICLOFENAC SODIUM) Apply 2-4 grams to affected areas four times daily as needed for pain; Route: TRANSDERMAL FLUCONAZOLE 150 MG ORAL TABLET (FLUCONAZOLE) take 1 tab; Route: ORAL LORAZEPAM 1 MG ORAL TABLET (LORAZEPAM) Take one tablet by mouth daily at night; Route: ORAL VALACYCLOVIR HCL 1 GM ORAL TABLET (VALACYCLOVIR HCL) Take one tablet by mouth twice daily for 5 days; Route: ORAL METFORMIN 1000MG TABLETS (METFORMIN HCL) TAKE 1 TABLET BY MOUTH TWICE DAILY ALBUTEROL 0.021%(0.63MG/3ML) 25X3ML (ALBUTEROL SULFATE) Use one vial vial nebulizer every 4 hours as needed for wheeze * SPACER dx: reactive airway disease J45.909 FLOVENT DISKUS 250 MCG/BLIST INHALATION AEROSOL POWDER BREATH ACTIVATED (FLUTICASONE PROPIONATE (INHAL)) Inhale one actuation twice daily; Route: INHALATION PROAIR HFA 108 (90 BASE) MCG/ACT INHALATION AEROSOL SOLUTION (ALBUTEROL SULFATE) 2 puffs orally up to every 4 hrs as needed for wheezing; Route: INHALATION MIRENA (52 MG) INTRAUTERINE DEVICE (LEVONORGESTREL IUD) placed 06/2018 T83.32XA PMH/PSH - Past Medical History Cardiovascular: positive: Hypertension, Murmur Respiratory: positive: Asthma, Pneumonia, Shortness of breath Endocrine/Autoimmune: positive: None GI: positive: None PULP GRINDER AND BLENDER: positive: None : positive: Chronic bladder infection HEENT: positive: None Psych: positive: Depression, Anxiety, Panic attacks, ADD/ADHD Musculoskeletal: positive: Chronic back pain Derm: positive: Rosacea MRSA Hx?: No - Past Surgical History /PULP GRINDER AND BLENDER: positive: section HEENT: positive: Tonsil/Adenoidectomy Social & Family Hx - Social History Does the pt smoke?: No Smoking Status: Never smoker Does the pt drink ETOH?: No Does the pt have substance abuse?: No Substance Use and Type: Marijuana - POLST Patient has POLST: No Meds/Allgy - Home Medications Home Medications: Ambulatory Orders Medication Instructions Recorded Confirmed traZODone [Desyrel] 100 - 200 mg PO QPM PRN 02/25/17 05/17/19 Albuterol Sulf [Ventolin Hfa 1 - 2 puffs INH Q4HR PRN #1 inhaler 05/01/18 Inhaler] Cyclobenzaprine [Flexeril] 10 mg PO TID PRN #20 tablet 05/01/18 05/17/19 Ibuprofen [Motrin] 400 mg PO Q8H PRN 05/01/18 05/17/19 Lorazepam [Ativan] 1 mg PO Q8HR PRN 05/01/18 05/17/19 Oxycodone HCl/Acetaminophen 1 - 2 each PO Q6H PRN #14 tablet 05/01/18 05/17/19 [Percocet 5-325 mg Tablet] Acetaminophen [Tylenol] 650 mg PO Q6H PRN 05/17/19 05/17/19 Fluticasone Propionate [Flovent 1 inh IH BID 05/17/19 05/17/19 Diskus] Lisdexamfetamine Dimesylate 40 mg PO DAILY 05/17/19 05/17/19 [Vyvanse] Metformin HCl 1,000 mg PO BID 05/17/19 05/17/19 Valacyclovir HCl [Valacyclovir] 1,000 mg PO BID PRN 05/17/19 05/17/19 - Allergies Allergies/Adverse Reactions: Allergies Allergy/AdvReac Type Severity Reaction Status Date / Time No Known Drug Allergies Allergy Verified 05/03/18 00:52
[2019-05-18] MEDS ORDERED: LACTATED RINGERS 1,000 ML IV ONE ×2 (10:01→14:50)
[2019-05-18 10:12] LABS: HCG UR QUAL NEGATIVE
[2019-05-18] MEDS ORDERED: GABAPENTIN 400 MG CAPSULE ONE (10:27)
[2019-05-18] MEDS ORDERED: CELECOXIB 100 MG CAPSULE PO ONE (10:28)
[2019-05-18] MEDS ORDERED: CEFAZOLIN SODIUM IN 0.9 % NACL 2 GM/100 ML BAG IV ONE (10:28)
[2019-05-18] MEDS ORDERED: ACETAMINOPHEN 1,000 MG/100 ML 100 ML IV ONE (10:28)
[2019-05-18 10:47] LABS: BASOPHILS % (AUTO) 0.3 %; EOSINOPHILS # (AUTO) 0.2 10^3/uL (0.0-0.7); EOSINOPHILS % (AUTO) 2.5 %; HGB - HEMOGLOBIN 12.9 g/dL (12.0-16.0); LYMPHOCYTES # (AUTO) 2.5 10^3/uL (1.5-3.5); LYMPHOCYTES % (AUTO) 35.2 %; MEAN CORPUSCULAR HEMOGLOBIN 30.8 pg (27.0-31.0); MEAN CORPUSCULAR HGB CONC 33.1 g/dL (32.0-36.0); MEAN CORPUSCULAR VOLUME 93.1 fL (81.0-99.0); MEAN PLATELET VOLUME 9.4 fL (7.9-10.8); MONOCYTES # (AUTO) 0.5 10^3/uL (0.0-1.0); MONOCYTES % (AUTO) 7.3 %; NEUTROPHILS # (AUTO) 3.9 10^3/uL (1.5-6.6); NEUTROPHILS % (AUTO) 54.4 %; PLT - PLATELET COUNT 254 10^3/uL (130-450); RED BLOOD COUNT 4.19 10^6/uL (4.20-5.40); RED CELL DISTRIBUTION WIDTH 11.8 % (12.0-15.0); WHITE BLOOD COUNT 7.1 x10^3/uL (4.8-10.8)
--- NOTE | 2019-05-18 13:30 | ANESTHESIA ---
Pre-Anesthesia VS, & Labs - Diagnosis displaced IUD - Procedure hysteroscopy and removal of IUD Vital Signs: Temp Pulse Resp BP Pulse Ox 36.2 C L 68 16 136/61 H 98 05/18/19 10:01 05/18/19 10:01 05/18/19 10:01 05/18/19 10:01 05/18/19 10:01 Height 5 ft 4.25 in Weight (kg) 165.2 kg Body Mass Index 59.8 - Is Patient ?: No - Lab Results Current Lab Results: Laboratory Tests 05/18/19 10:43: WBC 7.1, RBC 4.19 L, Hgb 12.9, Hct 39.0, MCV 93.1, MCH 30.8, MCHC 33.1, RDW 11.8 L, Plt Count 254, MPV 9.4, Neut # (Auto) 3.9, Lymph # (Auto) 2.5, [place] # (Auto) 0.5, Eos # (Auto) 0.2, Baso # (Auto) 0.0, Absolute Nucleated RBC 0.00, Nucleated RBC % 0.0 05/18/19 10:29: POC Whole Bld Glucose 94 Fish Bones: 05/18/19 10:43 Home Medications and Allergies Home Medications: Ambulatory Orders Acetaminophen [Tylenol] 650 mg PO Q6H PRN 05/17/19 Fluticasone Propionate [Flovent Diskus] 1 inh IH BID 05/17/19 Lisdexamfetamine Dimesylate [Vyvanse] 40 mg PO DAILY 05/17/19 Metformin HCl 1,000 mg PO BID 05/17/19 Valacyclovir HCl [Valacyclovir] 1,000 mg PO BID PRN 05/17/19 traZODone [Desyrel] 100 - 200 mg PO QPM PRN 02/25/17 Ibuprofen [Motrin] 400 mg PO Q8H PRN 05/01/18 Lorazepam [Ativan] 1 mg PO Q8HR PRN 05/01/18 Acetaminophen [Tylenol] 650 mg PO Q6H PRN 05/17/19 Fluticasone Propionate [Flovent Diskus] 1 inh IH BID 05/17/19 Lisdexamfetamine Dimesylate [Vyvanse] 40 mg PO DAILY 05/17/19 Metformin HCl 1,000 mg PO BID 05/17/19 Valacyclovir HCl [Valacyclovir] 1,000 mg PO BID PRN 05/17/19 Allergies/Adverse Reactions: Allergies Allergy/AdvReac Type Severity Reaction Status Date / Time No Known Drug Allergies Allergy Verified 05/03/18 00:52 Anes History & Medical History - Anesthetic History Anesthesia Complications: reports: No previous complications Family history of Anesthesia Complications: Denies - Medical History Cardiovascular: reports: None, Hypertension (was on anti HTN medications but does not take anymore), Murmur Pulmonary: reports: Asthma (uses flovent and albuterol . USed flovent 2 days ago.), Pneumonia, Shortness of breath Gastrointestinal: reports: None Urinary: reports: Chronic bladder infection Neuro: reports: None Musculoskeletal: reports: None, Chronic back pain Endocrine/Autoimmune: reports: None Blood Disorders: reports: Polycythemia vera (denies.) Skin: reports: Rosacea Smoking Status: Never smoker (smokes weed everyday) Psychosocial: reports: Cannabis - Surgical History Eyes Ears Nose Throat (EENT): Tonsil/Adenoidectomy Gynecologic: section Exam General: Alert, Oriented x3, Cooperative, No acute distress Dental: WNL Mouth Openin Fingerbreadth Neck Mobility: Normal Mallampati classification: II Thyromental Distance: less than 4 cm Respiratory: Lungs clear, Normal breath sounds, No respiratory distress, No accessory muscle use Cardiovascular: Regular rate, Normal S1, Normal S2, No murmurs Abdomen: Normal bowel sounds, Soft, No tenderness, No hepatospenomegaly, No masses Extremities: No clubbing, No cyanosis, No edema, Normal pulses, No tenderness/swelling Neurological: Normal gait, Normal speech, Strength at 5/5 X4 ext, Normal tone, Sensation intact, Cranial nerves 3-12 NL, Reflexes 2+ Mental/Cognitive Status: Alert/Oriented X3, Normal for patient Cognitive Status: Within normal limits Plan Anesthesia Type: General Consent for Procedure(s) Verified and Reviewed: Yes Code Status: Attempt Resuscitation ASA classification: 3-Severe systemic disease Is this case an emergency?: No
[2019-05-18] MEDS ORDERED: LIDOCAINE 1%-EPI 1:100000 20 ML MDV ONE (13:55)
[2019-05-18] MEDS ORDERED: ceFAZolin 1 GM VIAL ONE (14:34)
[2019-05-18] MEDS ORDERED: SUGAMMADEX 200 MG/2 ML VIAL IVP ONE (14:37)
--- NOTE | 2019-05-18 14:55 | OPERATIVE REPORT ---
Operative Report - General Planned Procedure: Exam under anesthesia, possible hysteroscopic resection of displaced IUD, possible laparoscopic retrieval of IUD Pre-Op Diagnosis: Displaced IUD, pelvic pain, inability to tolerate clinical exam Procedure Performed: Exam under anesthesia and removal of IUD Post Op Diagnosis: Same and IUD removal - Procedure Note Primary Surgeon: Alexa Hale MD Anesthesia Provider: Alcira Frye CRNA Anesthesia Technique: General ET tube Pathology: none IV Fluids (mL): 200 Estimated Blood Loss (mL): 0 Urine Output (mL): 0 (not collected) Indications: Patient is a 29 yo here for consultation regarding removal of her IUD. She has a high level of anxiety and refuses an exam today. [facility]. She has reported UTI but cultures have been negative She has had hematuria. On 04/27/19, she presented for STD evaluation and was sent for CT scan given the hematuria. Her IUD, placed 04/2018, was noted to be sitting low in the uterus with the arms in the myometrium. Pelvic us confirmed malposition to be likely. She has since developed back pain and some bruising over the coccyx area. She reports she is in significant pain She declines pelvic exam and removal in clinic today. She wants to proceed with removal under anesthesia. She has used Nexplanon several times in the past and had issues with migration. She does not want a replacement IUD. She is very anxious and tearful. She does agree to EUA vs hysteroscopic removal of the IUD and possible laparascopc removal in the setting of complete perforation. Findings: Intrauterine placement of IUD, partially implanted with deformed but intact arms with adherent myometrium Complications: none - Other Other Information/Narrative: Risks benefits and alternatives to the procedure were reviewed. Consent was again confirmed. Patient was taken to the operating room where she underwent general anesthesia. She was positioned in dorsolithotomy position with legs resting in yellowfin stirrups. Preoperative antibiotics were given in anticipation of possible uterine perforation with IUD. Preoperative checklist was performed. Exam under anesthesia was performed. Speculum was placed in the vagina and the cervix was visualized. A ring forceps was used to grasp the IUD strings. The IUD was removed with minimal resistance. It was examined and found to be intact, arms somewhat deformed and small amount of adherent myometrium. Good hemostasis was noted. All instruments were removed from the vagina. Procedure was well- tolerated without complication.
[2019-05-18] MEDS: fentaNYL 100 MCG/2 ML VIAL ONE ×2 (15:01→15:06)
[2019-05-18] MEDS ORDERED: oxyCODONE 5 MG TABLET PO PRN (15:09)
[2019-05-18] MEDS ORDERED: oxyCODONE 5 MG TABLET ONE (15:34)
[2019-05-18 15:36] VITALS: BP 122/64
== END 2019-05-18 09:45 | disposition home or self-care (01) ==
LOC: SDS 09:44
PROVIDERS: ATTEND Obstetrics & Gynecology
PROC: 0UPD7HZ Removal of Contraceptive Device from Uterus and Cervix, Via Natural or Artificial Opening (ICD-10-PCS; principal; 2019-05-18 12:15)
DX: T83.32XA Displacement of intrauterine contraceptive device, initial encounter (principal); R10.2 Pelvic and perineal pain; Y76.8 Miscellaneous obstetric and gynecological devices associated with adverse incidents, not elsewhere classified; Y84.8 Other medical procedures as the cause of abnormal reaction of the patient, or of later complication, without mention of misadventure at the time of the procedure; J45.909 Unspecified asthma, uncomplicated; E66.9 Obesity, unspecified; Z68.44 Body mass index [BMI] 60.0-69.9, adult; F41.9 Anxiety disorder, unspecified; F32.9 Major depressive disorder, single episode, unspecified; R01.1 Cardiac murmur, unspecified; I10 Essential (primary) hypertension; N30.20 Other chronic cystitis without hematuria; G89.29 Other chronic pain; M54.9 Dorsalgia, unspecified; R59.0 Localized enlarged lymph nodes; N64.4 Mastodynia; N63.13 Unspecified lump in the right breast, lower outer quadrant; N63.15 Unspecified lump in the right breast, overlapping quadrants; Z79.51 Long term (current) use of inhaled steroids; Z72.89 Other problems related to lifestyle; Z87.891 Personal history of nicotine dependence; Z87.01 Personal history of pneumonia (recurrent)
CPT/HCPCS: 58301; 76642; 81025; 85025; A9270; J0131; J0690; J7120

== ENCOUNTER 2019-05-26 10:31 | Outpatient (CLI) | payer MEDICAID ==
--- NOTE | 2019-05-26 18:59 | XRAY Report ---
Reason: HIP JOINT PAIN Procedure Date: 05/26/2019 Accession Number: [id number] / [id number] Procedure: XRN - Pelvis 1 View CPT Code: Final Report FULL RESULT: EXAM: PELVIS RADIOGRAPHY EXAM DATE: 05/26/2019 10:46 AM. CLINICAL HISTORY: HIP JOINT PAIN. COMPARISON: HIP W/PELVIS 2-3V LT 03/19/2017 10:59 AM. TECHNIQUE: 1 view. FINDINGS: Bones: Normal. No fracture or bone lesion. Joints: Joint spacing is maintained. There is mild right hip periarticular sclerosis and marginal spurring. Soft Tissues: No unexpected soft tissue findings. IMPRESSION: 1. No fracture or dislocation. 2. There is mild underlying right hip degenerative disease. RADIA
== END 2019-05-26 10:32 | disposition home or self-care (01) ==
LOC: DI.N 10:31
PROVIDERS: ATTEND Physician Assistant Medical
DX: M16.11 Unilateral primary osteoarthritis, right hip (principal); M25.552 Pain in left hip
CPT/HCPCS: 72170

== ENCOUNTER 2019-06-28 11:41 | Outpatient (CLI) | payer MEDICAID | END 2019-06-28 11:42 | disposition home or self-care (01) | LOC: COV 11:41 | PROVIDERS: ATTEND Family Medicine | DX: R05 Cough (principal); R50.9 Fever, unspecified | CPT/HCPCS: 81599 ==

== ENCOUNTER 2019-08-10 16:58 | Outpatient (CLI) | payer MEDICAID ==
--- NOTE | 2019-08-10 17:25 | SLEEP CARE CONSULTATION ---
Information from patient questionnaire entered by Abby Lu. I have reviewed and concur with the information entered by Abby Lu. This document represents the service I personally performed and the decisions made by me, Anjali Copeland, RN, MSN, TRAVEL REGISTERED NURSE NICU. History of Present Illness Service Date and Time: 08/10/2019 1600 Reason for follow up: other (patient having sleep issues) Prior sleep studies: Yes Year and Where: [facility] 2017 Type of Sleep Study: Polysomnography HPI additional information: Patient contacted this office as her boyfriend is concerned that her symptoms have worsened since last seen. He recorded her stopping breathing and feels that it is more frequent than when last evaluated. The symptoms are worse on her back so he advises to avoid sleeping on back. However, she is more comfortable on her back. He states that the witnessed apneas are longer and more frequent . The patient reports waking to gasping for air. She also wakesto heart pounding and fast rate. This has been going on for about 4 months. She was placed on prednisone and gained weight. She is waking with headaches that can last until next day. She takes ibuprofen with some relief. She wears a fit bit and it shows hers fragmented sleep as she states she feels. Fit bit records about 4- 5 hours of total sleep with light sleep most common. Questions reflect: She has moderate snoring. She is waking up about 7-8 times a night. Her bedtime is 9pm - 12am Waketime 6:30 - 7:30am It takes 1- to several hours to go to sleep. Most of time she is waking to get comfortable and change position or use the bathroom . Occasionally she wakes to gasping. She does not wake refreshed. She feels fatigued and sleepy during the day. She reports problems with memory and concentration. She has not fallen asleep while driving but has noted drowsiness. [place] sleepiness scale is 6. Subjective Initial [place] Sleepiness Scale score: 2 Allergies and Home Medications Known drug allergies: No Home medication list reviewed: Yes (see changes ) Allergy and home medication list: metformin 1000mg twice a day for weight loss Vivance 70mg daily for ADHD lorazepam 0.1mg 3 times a day trazadone 200mg HS for sleep /anxiety / depression . Albuterol as needed Flovent as needed. Physical Exam Height: 5 ft 4.25 in Weight: 361 lb Body Mass Index: 61.4 BMI Classification: Morbidly Obese Impression and Plan 1. Suspected Obstructive Sleep Apnea-Hypopnea Syndrome, as suggested by a history of loud and irregular snoring, observed cessation of breath while asleep, gasping or choking in sleep, morning headache, frequent awakening during the night, unrefreshed sleep, cognitive impairment, and excessive daytime sleepiness. Narrow oropharynx and obesity are common predisposing factors for obstructive sleep apnea-hypopnea syndrome. A physical exam could not be done due to Covid precautions. Tele health video showed that the patient had a thick neck and when she opened her mouth, I could not see past her tongue. Her morbid obesity also puts her at risk for sleep apnea. Past physical exam at consultation showed a mallipatti of IV and neck circumference of 18.5. Since she did not sleep well at her last polysommography, I would generally recommend proceeding to HST to confirm the diagnosis and to assess severity. However, due to Covid 19 precautions, this is currently not available. Thus I will order a trial of CPAP with pressure set at [id number]. I explained that this is determined by her insurance coverage. Currently most insurances are allowing CPAP treatment based on symptoms due to Covid 19. I also discussed the process of getting a CPAP and symptoms to report if having difficulty using or if mask concerns. The pathophysiology of obstructive sleep apnea-hypopnea syndrome was discussed with the patient and health risks of cardiovascular and cerebrovascular disease if not treated. Risks of drowsy driving discussed in detail and patient advised to avoid long distance driving and to candy puller at the first sign of drowsiness. Patient agreed to plan. Until she obtains her CPAP, she is advised to avoid supine sleep by pillow positioning or by wearing a T-shirt with tennis balls sewn in the back. Patient also advised of 911 guidelines if wakes to fast heart rate/ shortness of breath that does not resolve in a few minutes or if has worse headache ever with rationale discussed. patient agreed with plan. * Nasal auto CPAP therapy, pressure at 4-15 cm H2O. * Attempt to lose weight * Avoid supine sleep until using CPAP. * The patient is again cautioned about driving until sleepiness completely resolves. * Return one month after CPAP obtained. I will assess response to therapy and compliance at that time. Visit Type: Telehealth Video (to minimize risk of Covid 19 exposure.) Video Type: Veebow Patient Location: Home Location of Provider: Home Patient agrees and consents to this telehealth visit type: Yes Patient agrees to have their insurance billed: Yes Provider Statement: I spent 100% of the Telehealth Video Call with the patient with greater than 50% spent counseling the patient and coordination of care.
== END 2019-08-10 16:59 | disposition home or self-care (01) ==
LOC: SC 16:58
PROVIDERS: ATTEND Nurse Practitioner Family
DX: G47.10 Hypersomnia, unspecified (principal); G47.8 Other sleep disorders; R06.81 Apnea, not elsewhere classified; R06.83 Snoring; R51 Headache; R41.89 Other symptoms and signs involving cognitive functions and awareness; E66.01 Morbid (severe) obesity due to excess calories; Z68.44 Body mass index [BMI] 60.0-69.9, adult

== ENCOUNTER 2019-08-18 15:08 | Outpatient (CLI) | payer MEDICAID ==
--- NOTE | 2019-08-18 17:55 | Ultrasound Report ---
Reason: STATE GESTATIONAL CARRIER Procedure Date: 08/18/2019 Accession Number: [id number] / [id number] Procedure: US - OB First Trimester CPT Code: Final Report FULL RESULT: EXAM: FIRST TRIMESTER OBSTETRIC ULTRASOUND (Less than 11 weeks) EXAM DATE: 08/18/2019 05:13 PM. CLINICAL HISTORY: STATE GESTATIONAL CARRIER. LMP: 07/12/2019, EGA 5 weeks 2 days, JOSESITO 04/17/2020. COMPARISONS: ABDOMEN/PELVIS W/O 05/03/2019 9:03 AM. TECHNIQUE: Transabdominal and transvaginal ultrasound examination with static image documentation. ASSESSMENT: Gestational Sac: Possible single intrauterine gestational sac. Mean gestational sac diameter: 3 mm = EGA 5 weeks 0 days. Embryo: Not seen. Cardiac activity: Not seen. Yolk sac: Not seen. Amniotic fluid: Not accurately assessed at this gestational age. Early placenta: Not visible at this gestational age. Other: No perigestational fluid collection demonstrated. MATERNAL STRUCTURES: Uterus: Anteverted. Heterogeneous prominent anterior myometrium. Cervix: Closed. Right Ovary/Adnexa: The ovary measures 4.8 x 3.6 x 4.7 cm, volume 42.4 cc. Right ovarian simple cyst measuring 3.6 x 2.6 x 4 cm. Left Ovary/Adnexa: The ovary measures 2.8 x 2.4 x 4.7 cm, volume 16.4 cc. Unremarkable. No adnexa masses seen. Free Fluid: None. IMPRESSION: 1. Possible single intrauterine gestational sac. Mean gestational sac diameter: 3 mm = EGA 5 weeks 0 days. No definite intrauterine seen. An ectopic is not excluded. No evidence for an ectopic . Correlate clinically. Follow-up is recommended. 2. Simple right ovarian cyst measuring 4 cm. RADIA The call report notification system was initiated by Dr. Kimberly Farris at 05:49 PM on 08/18/2019. The above call report findings were discussed with Jackie Moncada by Dr. Kimberly Farris at 05:52 PM on 08/18/2019.
== END 2019-08-18 15:09 | disposition home or self-care (01) ==
LOC: DI 15:08
PROVIDERS: ATTEND Advanced Practice Midwife
DX: Z33.3 Pregnant state, gestational carrier (principal)
CPT/HCPCS: 76801; 76817

== ENCOUNTER 2019-08-25 08:00 | Outpatient (CLI) | payer MEDICAID | END 2019-08-25 23:59 | disposition home or self-care (01) | LOC: LAB.WCP 08:00 | PROVIDERS: ATTEND Advanced Practice Midwife | DX: Z33.3 Pregnant state, gestational carrier (principal) | CPT/HCPCS: 36415; 84702 ==

== ENCOUNTER 2019-08-25 11:04 | Outpatient (CLI) | payer MEDICAID ==
--- NOTE | 2019-08-25 13:43 | Ultrasound Report ---
Reason: LOCATION AND VIABILITY OF Procedure Date: 08/25/2019 Accession Number: [id number] / [id number] Procedure: US - OB First Trimester CPT Code: Addended Final Report FULL RESULT: EXAM: FIRST TRIMESTER OBSTETRIC ULTRASOUND (Less than 11 weeks) EXAM DATE: 08/25/2019 12:28 PM. CLINICAL HISTORY: LOCATION AND VIABILITY OF . LMP: 07/12/2019. COMPARISONS: OB FIRST TRIMESTER 08/18/2019 4:25 PM. TECHNIQUE: Transabdominal and transvaginal ultrasound examination with static image documentation. CLINICAL DATES: EGA 6 weeks 2 days with JOSESITO 04/17/2020 based on LMP. ASSESSMENT: Gestational Sac: Mean gestational sac diameter: 2.9 mm = 5 weeks 0 days. Embryo: Not seen Cardiac activity: Not seen Yolk sac: Not seen Amniotic fluid: Not accurately assessed at this gestational age. Early placenta: Not visible at this gestational age. Other: No perigestational fluid collection demonstrated. MATERNAL STRUCTURES: Uterus: Anteverted. Unremarkable. Cervix: Closed. Right Ovary/Adnexa: The ovary measures 3.8 x 3.1 x 2.5 cm, volume 15.4 cc. Unremarkable. Previously seen right ovarian cyst not identified today. Left Ovary/Adnexa: The ovary measures 3.2 x 2.7 x 2.8 cm, volume 12.7 cc. Unremarkable. Corpus luteum 1.8 x 1.6 x 1.6 cm. Stable appearance of the left ovary. Free Fluid: None. Other: None. IMPRESSION: 1. Stable size and appearance of a 3 mm cystic focus within the endometrial canal near the uterine fundus. This would give an estimated gestational age of 5 weeks 0 days, unchanged versus study of a week ago. 2. Interval resolution of right ovarian cyst. No developing masses or free fluid detected related to either ovary. Consideration of close ultrasound follow-up and serial beta hCG levels suggested, as clinically indicated. ADAM The call report notification system was initiated by Dr. Willi Cope at 01:42 PM on 08/25/2019. ADDENDUM: 08/25/19 14:10 The above call report findings were discussed with by Dr. Willi Cope at 02:10 PM on 08/25/2019.
== END 2019-08-25 11:05 | disposition home or self-care (01) ==
LOC: DI 11:04
PROVIDERS: ATTEND Advanced Practice Midwife
DX: Z33.3 Pregnant state, gestational carrier (principal)
CPT/HCPCS: 76801; 76817

== ENCOUNTER 2019-08-28 09:09 | Outpatient (CLI) | payer MEDICAID | END 2019-08-28 09:10 | disposition home or self-care (01) | LOC: LAB 09:09 | PROVIDERS: ATTEND Advanced Practice Midwife | DX: Z33.3 Pregnant state, gestational carrier (principal) | CPT/HCPCS: 36415; 84702 ==

== ENCOUNTER 2019-08-30 10:06 | Emergency (ER) | payer MEDICAID ==
--- NOTE | 2019-08-30 11:11 | ED Physician Documentation ---
PD HPI CHEST PAIN - Stated complaint Stated Complaint: SOA - Chief complaint Chief Complaint: General - History obtained from History obtained from: Patient - History of Present Illness Timing - onset: How many weeks ago (2) Timing - onset during: Light activity (notes it with movement and with breathing the past few days.), Eating (does note the pain more after eating) Timing - details: Gradual onset, Still present, Intermittant Quality: Aching, Sharp, Pain Location: Right chest (lower costal margin and some to RUQ abd. Radiates some around to right flank/back.) Radiation: Back Improved by: No: Rest Worsened by: Inspiration, Eating, Movement Associated symptoms: Shortness of air, Nausea. No: Vomiting, Feeling faint / dizzy Similar symptoms before: Has not had sx before Recently seen: Clinic (seen by telemedicine and felt likely cartilage pain/pleurisy. No xray ordered. Also seen by FOUNDRY OPERATOR regarding early with U/S showing intrauterine sac but low/minimally rising quants. Is supposed to get repeat quant HCG and see OB tomorrow. referred to ER today regarding the chest pain. Denies leg edema, calf pains, fever, cough.) Review of Systems Constitutional: denies: Fever, Chills, Myalgias Nose: denies: Rhinorrhea / runny nose, Congestion Throat: denies: Sore throat Cardiac: reports: Chest pain / pressure. denies: Palpitations, Pedal edema, Calf pain Respiratory: reports: Dyspnea. denies: Cough, Wheezing GI: reports: Abdominal Pain (RUQ). denies: Abdominal Swelling, Nausea, Vomiting, Diarrhea : reports: Now EGA (7 weeks by dates). denies: Vaginal bleeding Skin: denies: Rash, Lesions Neurologic: denies: Near syncope PD PAST MEDICAL HISTORY - Past Medical History Past Medical History: Yes Cardiovascular: None, Hypertension, Murmur Respiratory: Asthma, Pneumonia, Shortness of breath Neuro: None Endocrine/Autoimmune: None GI: None COMPUTER AIDED DESIGN TECHNICIAN: None : Chronic bladder infection HEENT: None Psych: Depression, Anxiety, Panic attacks, ADD/ADHD Musculoskeletal: None, Chronic back pain Derm: Rosacea - Past Surgical History Past Surgical History: Yes /COMPUTER AIDED DESIGN TECHNICIAN: section HEENT: Tonsil/Adenoidectomy - Present Medications Home Medications: Ambulatory Orders Medication Instructions Recorded Confirmed traZODone [Desyrel] 100 - 200 mg PO QPM PRN 02/25/17 05/17/19 Albuterol Sulf [Ventolin Hfa 1 - 2 puffs INH Q4HR PRN #1 inhaler 05/01/18 05/17/19 Inhaler] Cyclobenzaprine [Flexeril] 10 mg PO TID PRN #20 tablet 05/01/18 05/17/19 Ibuprofen [Motrin] 400 mg PO Q8H PRN 05/01/18 05/17/19 Lorazepam [Ativan] 1 mg PO Q8HR PRN 05/01/18 05/17/19 Oxycodone HCl/Acetaminophen 1 - 2 each PO Q6H PRN #14 tablet 05/01/18 05/18/19 [Percocet 5-325 mg Tablet] Acetaminophen [Tylenol] 650 mg PO Q6H PRN 05/17/19 05/17/19 Fluticasone Propionate [Flovent 1 inh IH BID 05/17/19 05/17/19 Diskus] Lisdexamfetamine Dimesylate 40 mg PO DAILY 05/17/19 05/17/19 [Vyvanse] Metformin HCl 1,000 mg PO BID 05/17/19 05/17/19 Valacyclovir HCl [Valacyclovir] 1,000 mg PO BID PRN 05/17/19 05/17/19 Docusate Sodium 100 mg PO DAILY #20 capsule 08/30/19 Hydrocodone/Acetaminophen [[place] 1 each PO Q6H PRN #15 tablet 08/30/19 5-325 Tablet] Naproxen 375 mg PO BID #20 tablet 08/30/19 - Allergies Allergies/Adverse Reactions: Allergies Allergy/AdvReac Type Severity Reaction Status Date / Time No Known Drug Allergies Allergy Verified 05/03/18 00:52 - Social History Does the pt smoke?: No Smoking Status: Never smoker Does the pt drink ETOH?: No Does the pt have substance abuse?: No - Immunizations Immunizations are current?: Yes Immunizations: TDAP >10years/unknown - POLST Patient has POLST: No PD ED PE NORMAL - Vitals Vital signs reviewed: Yes - General General: Alert and oriented X 3, No acute distress, Well developed/nourished - HEENT HEENT: Ears normal, Moist mucous membranes, Pharynx benign - Neck Neck: Supple, no meningeal sign, No adenopathy - Cardiac Cardiac: RRR, No murmur - Respiratory Respiratory: Clear bilaterally, Other (tenderness right lower costal margin without redness nor warmth, no rash. Also tender RUQ abd below costal margin with mildly positive White's sign. ) - Abdomen Abdomen: Normal bowel sounds, Soft, Non distended, No organomegaly, Other (obese) - Extremities Extremities: No tenderness to palpate, Normal ROM s pain, No edema, No calf tenderness / cord - Neuro Neuro: Alert and oriented X 3, No motor deficit, Normal speech Results - Vitals Vitals: Vital Signs - 24 hr 08/30/19 08/30/19 08/30/19 10:11 10:22 12:49 Temperature 37.0 C Heart Rate 70 57 L 78 Respiratory 16 14 12 Rate Blood Pressure 119/69 136/80 H 163/92 H O2 Saturation 99 98 99 08/30/19 14:12 Temperature 37.1 C Heart Rate 74 Respiratory 12 Rate Blood Pressure 135/73 H O2 Saturation 97 Oxygen O2 Source Room air - Labs Labs: Laboratory Tests 08/30/19 08/30/19 12:05 12:05 WBC 10.8 RBC 4.26 Hgb 13.3 Hct 39.9 MCV 93.7 MCH 31.2 H MCHC 33.3 RDW 12.3 Plt Count 277 MPV 9.3 Neut # (Auto) 6.9 H Lymph # (Auto) 2.9 Frio # (Auto) 0.7 Eos # (Auto) 0.2 Baso # (Auto) 0.0 Absolute Nucleated RBC 0.00 Nucleated RBC % 0.0 Sodium 139 Potassium 3.6 Chloride 106 Carbon Dioxide 25 Anion Gap 8.0 BUN 12 Creatinine 0.6 Estimated GFR (MDRD) 117 Glucose 116 H Calcium 8.8 Total Bilirubin 0.4 AST 20 ALT 21 Alkaline Phosphatase 44 Total Protein 7.2 Albumin 3.8 Globulin 3.4 Albumin/Globulin Ratio 1.1 Lipase 28 - Rads (name of study) chestx ray Radiology: Prelim report reviewed (no acute process), See rad report abd U/S RUQ Radiology: Prelim report reviewed (several small mobile stones. No wall thickness nor surrounding fluid. ), See rad report PD MEDICAL DECISION MAKING - ED course Complexity details: considered differential (her RUQ/right chest pain she says has been worse after fatty meals, when asked in particular. No cough. U/S showing mobile stones, but no wall thickness. CBD 6 mm but her labs are okay, so does not seem like ductal obstruction. Consider likely biliary colic versus right lower costochondritis. Refer to Surgery for outpt consultation. ), d/w patient Departure - Departure Disposition: 01 Home, Self Care Clinical Impression: Right upper quadrant abdominal pain, Gallstones, Early stage of Condition: Stable Record reviewed to determine appropriate education?: Yes Instructions: ED Abdominal Pain Gallstone Poss Follow-Up: Solomon Bennett PA-C [Primary Care Provider] - Jhon Balderrama MD [Provider Admit Priv/Credential] - Prescriptions: Docusate Sodium 100 mg PO DAILY #20 capsule Hydrocodone/Acetaminophen [[place] 5-325 Tablet] 1 each PO Q6H PRN #15 tablet PRN Reason: Pain Naproxen 375 mg PO BID #20 tablet Comments: Low-fat diet as you do have some mobile gallstones in your gallbladder and they may be what is causing your pain in the upper abdomen with eating. There may be some element of inflammation of the cartilage on the lower ribs as well. He is both can be treated right now with anti-inflammatories of naproxen twice daily with food and adding Tylenol or hydrocodone if needed for worse pain. Daily stool softener docusate so you do not get constipated from the medications. Follow-up with FOUNDRY OPERATOR tomorrow as planned regarding ongoing evaluation of the early . The above medications are okay during at this point. Follow-up with surgery, make an appointment to see them and discuss the pros and cons of the gallbladder surgery given the pain that you have been having. Discharge Date/Time: 08/30/19 15:18
[2019-08-30] MEDS ORDERED: DEXAMETHASONE 10 MG/ML VIAL IVP STA (11:45)
[2019-08-30] MEDS ORDERED: KETOROLAC 30 MG/ML VIAL IVP STA (11:45)
[2019-08-30] MEDS ORDERED: HYDROmorphone 1 MG/ML CARPUJECT IVP STA ×2 (11:45→13:49)
[2019-08-30 12:15] LABS: BASOPHILS % (AUTO) 0.3 %; EOSINOPHILS # (AUTO) 0.2 10^3/uL (0.0-0.7); EOSINOPHILS % (AUTO) 1.6 %; HGB - HEMOGLOBIN 13.3 g/dL (12.0-16.0); LYMPHOCYTES # (AUTO) 2.9 10^3/uL (1.5-3.5); LYMPHOCYTES % (AUTO) 26.7 %; MEAN CORPUSCULAR HEMOGLOBIN 31.2 pg (27.0-31.0); MEAN CORPUSCULAR HGB CONC 33.3 g/dL (32.0-36.0); MEAN CORPUSCULAR VOLUME 93.7 fL (81.0-99.0); MEAN PLATELET VOLUME 9.3 fL (7.9-10.8); MONOCYTES # (AUTO) 0.7 10^3/uL (0.0-1.0); MONOCYTES % (AUTO) 6.9 %; NEUTROPHILS # (AUTO) 6.9 10^3/uL (1.5-6.6); PLT - PLATELET COUNT 277 10^3/uL (130-450); RED BLOOD COUNT 4.26 10^6/uL (4.20-5.40); RED CELL DISTRIBUTION WIDTH 12.3 % (12.0-15.0); WHITE BLOOD COUNT 10.8 x10^3/uL (4.8-10.8)
[2019-08-30 12:29] LABS: ALBUMIN 3.8 g/dL (3.2-5.5); ALBUMIN/GLOBULIN RATIO 1.1 (1.0-2.2); BILIRUBIN,TOTAL 0.4 mg/dL (0.2-1.0); CALCIUM 8.8 mg/dL (8.5-10.3); CREATININE 0.6 mg/dL (0.4-1.0); TOTAL PROTEIN 7.2 g/dL (6.7-8.2)
--- NOTE | 2019-08-30 13:16 | XRAY Report ---
Reason: chest pain Procedure Date: 08/30/2019 Accession Number: [id number] / [id number] Procedure: XR - Chest 1 View X-Ray CPT Code: 28951 Final Report FULL RESULT: EXAM: CHEST RADIOGRAPHY EXAM DATE: 08/30/2019 12:02 PM. CLINICAL HISTORY: Chest pain. COMPARISON: CHEST 2 VIEW 10/04/2018 2:08 PM. TECHNIQUE: 1 view. FINDINGS: Lungs/Pleura: No focal opacities evident. No pleural effusion. No pneumothorax. Mediastinum: Within exam limitations, the cardiomediastinal contour is normal. Other: None. IMPRESSION: Normal single view chest. RADIA
[2019-08-30 14:13] VITALS: BP 135/73
--- NOTE | 2019-08-30 14:17 | Ultrasound Report ---
Reason: RUQ abd/right lower chest pain Procedure Date: 08/30/2019 Accession Number: [id number] / [id number] Procedure: US - Abdomen Limited CPT Code: Final Report FULL RESULT: EXAM: ABDOMEN ULTRASOUND LIMITED, RUQ EXAM DATE: 08/30/2019 01:37 PM. CLINICAL HISTORY: RUQ abdomen/right lower chest pain. COMPARISON: ABDOMEN/PELVIS W/O 05/03/2019 9:03 AM CHEST ANGIO 05/01/2018 1:53 PM. TECHNIQUE: Real-time scanning was performed with static images obtained. FINDINGS: Liver: The liver is enlarged. There are 2 homogeneous echogenic nonshadowing liver masses. The larger mass measures 3.8 x 3.1 x 3.1 cm and is located in the medial aspect of the right lobe. There is a peripheral mass measuring 1.9 x 2.0 x 1.9 cm. There is no intrahepatic biliary dilatation. 21.2 cm. Main portal vein flow: Hepatopetal. Gallbladder: There are multiple mobile gallstones. Gallbladder wall thickness normal at 2 mm. Secretarial Stenographer reports that the gallbladder is tender on the exam. Biliary System: CBD measures 6.7 mm. Common bile duct enlarged for age. Other: Right kidney measures 11.5 cm in length without hydronephrosis. IMPRESSION: 1. Cholelithiasis. 2. The gallbladder is tender during the exam. This can be a finding of acute cholecystitis. However, the gallbladder wall thickness is normal, evidence against cholecystitis. 3. The common bile duct is dilated for age up to 6.7 mm. 4. Hepatomegaly with 2 liver masses most consistent with hemangiomas. RADIA
== END 2019-08-30 15:18 | disposition home or self-care (01) ==
LOC: ED 10:06
DX: O99.89 Other specified diseases and conditions complicating pregnancy, childbirth and the puerperium (principal); R10.11 Right upper quadrant pain; O99.611 Diseases of the digestive system complicating pregnancy, first trimester; O16.1 Unspecified maternal hypertension, first trimester; Z3A.01 Less than 8 weeks gestation of pregnancy
CPT/HCPCS: 36415; 71045; 76705; 80053; 83690; 85025; 96374; 96375; 99284; J1170

== ENCOUNTER 2019-08-31 07:01 | Outpatient (CLI) | payer MEDICAID | END 2019-08-31 07:02 | disposition home or self-care (01) | LOC: LAB 07:01 | PROVIDERS: ATTEND Obstetrics & Gynecology | DX: Z53.9 Procedure and treatment not carried out, unspecified reason (principal) ==

== ENCOUNTER 2019-08-31 07:03 | Outpatient (CLI) | payer MEDICAID ==
[2019-08-31 07:34] LABS: HB2 TOTAL 14.1 g/dL; HEMOGLOBIN A1C 0.49 g/dL; HEMOGLOBIN A1C % 5.3 % (4.6-6.2)
== END 2019-08-31 07:04 | disposition home or self-care (01) ==
LOC: LAB 07:03
PROVIDERS: ATTEND Obstetrics & Gynecology
DX: Z33.3 Pregnant state, gestational carrier (principal)
CPT/HCPCS: 36415; 83036; 84443; 84702; 86900; 86901

== ENCOUNTER 2019-09-15 13:51 | Outpatient (CLI) | payer MEDICAID | END 2019-09-15 23:59 | disposition home or self-care (01) | LOC: LAB.WCP 13:51 | PROVIDERS: ATTEND Obstetrics & Gynecology | DX: O03.9 Complete or unspecified spontaneous abortion without complication (principal) | CPT/HCPCS: 36415; 84702 ==

== ENCOUNTER 2019-09-18 06:39 | Emergency (ER) | payer MEDICAID ==
[2019-09-18 06:51] VITALS: BP 130/86
--- NOTE | 2019-09-18 07:04 | ED Physician Documentation ---
PD HPI LOWER EXT INJURY - Stated complaint Stated Complaint: FOOT PX - Chief complaint Chief Complaint: Trauma Ext - History obtained from History obtained from: Patient - History of Present Illness PD HPI LOW EXT INJURY LOCATION: Right, Foot Type of injury: Blunt / blow (moving couch and it dropped onto her foot when lost hold of it. Direct hit on top of foot near MTP 2nd/3rd toes. Continues with pain on movement, walking (push off part of gait) and direct palpation. No bruising.) Where injury occurred: Home Timing - onset: How many weeks ago (2) Timing - duration: Weeks (2) Timing - details: Abrupt onset, Still present Improved by: Rest, Meds (some improved with Ibuprofen/Naproxen and Tylenol.) Worsened by: Moving, Palpating Associated symptoms: Swelling (initially). No: Weakness, Numbness, Discolored Similar symptoms before: Has not had sx before Review of Systems Skin: denies: Abrasion (s), Laceration (s) Neurologic: denies: Focal weakness, Numbness PD PAST MEDICAL HISTORY - Past Medical History Cardiovascular: Hypertension, Murmur Respiratory: Asthma, Pneumonia, Shortness of breath Neuro: None Endocrine/Autoimmune: None GI: None MOTHER TESTER: Miscarriage(s) : Chronic bladder infection HEENT: None Psych: Depression, Anxiety, Panic attacks, ADD/ADHD Musculoskeletal: Chronic back pain Derm: Rosacea - Past Surgical History Past Surgical History: Yes /MOTHER TESTER: section HEENT: Tonsil/Adenoidectomy - Present Medications Home Medications: Ambulatory Orders Medication Instructions Recorded Confirmed Albuterol Sulf [Ventolin Hfa 1 - 2 puffs INH Q4HR PRN #1 inhaler 05/01/18 05/17/19 Inhaler] Lorazepam [Ativan] 1 mg PO Q8HR PRN 05/01/18 05/17/19 Hydrocodone/Acetaminophen [[place] 1 each PO Q6H PRN #15 tablet 08/30/19 5-325 Tablet] - Allergies Allergies/Adverse Reactions: Allergies Allergy/AdvReac Type Severity Reaction Status Date / Time acetaminophen [From Vicodin] AdvReac Headache Verified 09/18/19 06:54 hydrocodone [From Vicodin] AdvReac Headache Verified 09/18/19 06:54 - Social History Does the pt smoke?: No Smoking Status: Never smoker Does the pt drink ETOH?: No Does the pt have substance abuse?: No - Immunizations Immunizations are current?: Yes Immunizations: TDAP >10years/unknown - POLST Patient has POLST: No PD ED PE NORMAL - Vitals Vital signs reviewed: Yes - General General: Alert and oriented X 3, No acute distress, Well developed/nourished - Derm Derm: Normal color, Warm and dry, No rash - Extremities Extremities: Other (right foot with tenderness overlying 2nd MT head area. No noted deformity. ROM of the toe joints is good active and passively. ) - Neuro Neuro: Alert and oriented X 3, No motor deficit, No sensory deficit Results - Vitals Vitals: Vital Signs - 24 hr 09/18/19 06:46 Temperature 36.6 C Heart Rate 67 Respiratory 17 Rate Blood Pressure 130/86 H Oxygen O2 Source Room air - Rads (name of study) right foot Radiology: Prelim report reviewed (no fractures nor suspicious bony lesions.), See rad report PD MEDICAL DECISION MAKING - ED course Complexity details: reviewed results, considered differential, d/w patient Departure - Departure Disposition: 01 Home, Self Care Clinical Impression: Foot tendinitis Foot contusion Qualifiers: Encounter type: initial encounter Laterality: right Qualified Code(s): S90.31XA - Contusion of right foot, initial encounter Condition: Stable Record reviewed to determine appropriate education?: Yes Instructions: ED Sprain Foot Comments: No signs of recent or current fractures in your foot. I presume it some irritation persisting in the tendons or around the bone from the injury. Try the firm soled shoe when up and around for the next week or 2 until this fully improves. Continue some anti-inflammatories such as naproxen or ibuprofen 3 times a day regularly with food. To that add Tylenol if needed for pains. Recheck if still not improved over the next week.
[2019-09-18] MEDS ORDERED: NAPROXEN 250 MG TABLET PO STA (07:28)
--- NOTE | 2019-09-18 08:37 | XRAY Report ---
Reason: right foot pain Procedure Date: 09/18/2019 Accession Number: [id number] / [id number] Procedure: XR - Foot 3 View RT CPT Code: Final Report FULL RESULT: PROCEDURE: Foot 3 View RT INDICATIONS: right foot pain TECHNIQUE: 3 views of the foot were acquired. COMPARISON: None. FINDINGS: BB marker overlies the second/third MTP joints. Bones: No fractures or dislocations. No suspicious bony lesions. Soft tissues: No tibiotalar joint effusion. Achilles tendon appears normal. IMPRESSION: No acute osseous abnormality. Report is concordant with the preliminary report. Reviewed by: Demario Conti MD on 09/18/2019 8:36 AM PDT Approved by: Demario Conti MD on 09/18/2019 8:36 AM PDT Station ID: [id number]
== END 2019-09-18 07:41 | disposition home or self-care (01) ==
LOC: ED 06:39
DX: S90.31XA Contusion of right foot, initial encounter (principal); W20.8XXA Other cause of strike by thrown, projected or falling object, initial encounter; Y93.89 Activity, other specified; Y92.009 Unspecified place in unspecified non-institutional (private) residence as the place of occurrence of the external cause; M77.9 Enthesopathy, unspecified; I10 Essential (primary) hypertension
CPT/HCPCS: 73630; 99283; A9270

== ENCOUNTER → 2019-09-22 | Outpatient (CLI) | payer MEDICAID | LOC: SC 19:30 | PROVIDERS: ATTEND Internal Medicine Pulmonary Disease | DX: R06.81 Apnea, not elsewhere classified (principal); R06.83 Snoring; G47.10 Hypersomnia, unspecified; G47.8 Other sleep disorders; R51 Headache; R41.89 Other symptoms and signs involving cognitive functions and awareness; E66.01 Morbid (severe) obesity due to excess calories; Z68.44 Body mass index [BMI] 60.0-69.9, adult | CPT/HCPCS: 95806 ==

== ENCOUNTER 2019-10-13 09:04 | Outpatient (CLI) | payer MEDICAID ==
--- NOTE | 2019-10-13 09:42 | XRAY Report ---
PROCEDURE: Foot 3 View RT INDICATIONS: FOOT PAIN, RIGHT TECHNIQUE: 3 views of the foot were acquired. COMPARISON: 09/18/2019 FINDINGS: Bones: No acute or subacute fractures or dislocations. No abnormalities identified at the skin BB m arker noted between the head of the second and third metatarsals. No suspicious periosteal reaction. No suspicious bony lesions. Soft tissues: No tibiotalar joint effusion. Achilles tendon appears normal. IMPRESSION: Stable evaluation of the right foot without acute or subacute osseous abnormalities. If there are persistent symptoms or clinical suspicion for pathology, then repeat radiographs or adva nced imaging (CT, MRI, or bone scan) should be considered for further evaluation. Reviewed by: Alexandre Florian MD on 10/13/2019 9:41 AM PDT Approved by: Alexandre Florian MD on 10/13/2019 9:41 AM PDT Station ID: [id number]
== END 2019-10-13 09:05 | disposition home or self-care (01) ==
LOC: DI 09:04
PROVIDERS: ATTEND Nurse Practitioner Family
DX: M79.671 Pain in right foot (principal)

== ENCOUNTER 2019-10-16 12:38 | Emergency (ER) | payer MEDICAID ==
[2019-10-16 12:49] VITALS: BP 135/76
--- NOTE | 2019-10-16 12:53 | ED Physician Documentation ---
PD HPI LOWER EXT INJURY - Stated complaint Stated Complaint: RT FOOT PX - Chief complaint Chief Complaint: Ext Problem - History obtained from History obtained from: Patient - Additional information Additional information: She has a history of plantar fasciitis, a month ago something dropped on her foot. She was seen here and x-rays were done and negative. She subsequently followed up with her physician because of persistent pain and a second x-ray was done about a week ago which was still negative. She continues to have pain that seems most focused on the plantar surface of the foot at the level of the third and fourth MCPs which radiates around to those toes up to the top of the foot. It is worse with walking but also bad at rest. She denies fevers or chills. 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: Miscarriage(s) : Chronic bladder infection HEENT: None Psych: Depression, Anxiety, Panic attacks, ADD/ADHD Musculoskeletal: Chronic back pain Derm: Rosacea - Past Surgical History Past Surgical History: Yes /RN LVN: section, Other HEENT: Tonsil/Adenoidectomy - Present Medications Home Medications: Ambulatory Orders Medication Instructions Recorded Confirmed Albuterol Sulf [Ventolin Hfa 1 - 2 puffs INH Q4HR PRN #1 inhaler 05/01/18 09/26/19 Inhaler] Lorazepam [Ativan] 1 mg PO Q8HR PRN 05/01/18 09/26/19 Hydrocodone/Acetaminophen [[place] 1 each PO Q6H PRN #15 tablet 08/30/19 09/26/19 5-325 Tablet] Lisdexamfetamine Dimesylate 70 mg PO DAILY 09/26/19 09/26/19 [Vyvanse] Meloxicam [Mobic] 7.5 mg PO BID PRN #20 tablet 10/16/19 - Allergies Allergies/Adverse Reactions: Allergies Allergy/AdvReac Type Severity Reaction Status Date / Time acetaminophen [From Vicodin] AdvReac Headache Verified 10/16/19 12:46 hydrocodone [From Vicodin] AdvReac Headache Verified 10/16/19 12:46 - Social History Does the pt smoke?: No Smoking Status: Never smoker Does the pt drink ETOH?: No Does the pt have substance abuse?: No - Immunizations Immunizations are current?: Yes Immunizations: TDAP >10years/unknown - POLST Patient has POLST: No PD ED PE NORMAL - Vitals Vital signs reviewed: Yes - General General: Alert and oriented X 3, No acute distress - Extremities Extremities: Other (She is tender in the plantar surface of the left foot at the level of the third and fourth MCPs. There is no mass or visible abnormality. No significant tenderness over the plantar fascia nor the insertion of the plantar fascia onto the calcaneus. Good pedal pulses. No sign of infection.) - Neuro Neuro: Alert and oriented X 3, Normal speech Results - Vitals Vitals: Vital Signs - 24 hr 10/16/19 12:46 Temperature 36.5 C Heart Rate 94 Respiratory 18 Rate Blood Pressure 135/76 H O2 Saturation 99 Oxygen O2 Source Room air Departure - Departure Disposition: 01 Home, Self Care Clinical Impression: Left foot pain Condition: Good Record reviewed to determine appropriate education?: Yes Instructions: ED Acute Pain [facility] Follow-Up: Hugh Whitlock DPM [Physician No Access] - Prescriptions: Meloxicam [Mobic] 7.5 mg PO BID PRN #20 tablet PRN Reason: Pain Comments: As discussed, I think at this point your best course of action would be to follow-up with a injection molding supervisor for further evaluation and treatment. We are providing some pain medication until then. Return for new or worsening symptoms.
== END 2019-10-16 12:57 | disposition home or self-care (01) ==
LOC: ED 12:38
DX: M79.672 Pain in left foot (principal); I10 Essential (primary) hypertension
CPT/HCPCS: 99282; 99283

== ENCOUNTER 2019-10-18 11:20 | Outpatient (CLI) | payer MEDICAID ==
--- NOTE | 2019-10-18 11:50 | SLEEP CARE CONSULTATION ---
History of Present Illness Service Date and Time: 10/18/2019 1120 Initial [place] Sleepiness Scale score: 2 Additional HPI information: To minimize the risk of COVID-19 exposure, the patient has requested and consented to this telephone visit. The patient also agrees to having her insurance billed. HPI: Ms. Palencia was called for follow up of the sleep study she had on 09/22/2019. The home sleep apnea test (HSAT) showed an AHI of 4.7 and radha oxygen saturation of 77%. Time spent with oxygen saturation below 90% is 0.6 minutes. The patient, however, reports that he did not sleep much that night. The patient was informed of these findings. I explained to her that the home sleep apnea test (HSAT) was negative for significant sleep disordered breathing. The patient reports that she quits breathing more at home according to her . She had a negative in-laboratory polysomnography last year that showed an AHI of 2.2. IMPRESSION: 1. Suspected Obstructive Sleep Apnea-Hypopnea Syndrome, based on l oud snore, observed apneas, and morbid obesity. The home sleep apnea test (HSAT) is conclusive if she did not sleep much during it. Therefore, I will order another in-laboratory polysomnography. PLAN: 1. Schedule an in-laboratory polysomnography 2. Attempt to lose weight. 3. Return for a follow up after the sleep study. I spent 100% of the 10 minute phone call with the patient with greater than 50% of this spent counseling the patient and coordination of care. Physical Exam Height: 5 ft 5 in Impression and Plan Visit Type: Telehealth Phone Patient Location: Home Location of Provider: Office Patient agrees and consents to this telehealth visit type: Yes Patient agrees to have their insurance billed: Yes Time Spent with Patient (minutes): 10 Provider Statement: I spent 100% of the Telehealth Phone Call with the patient with greater than 50% spent counseling the patient and coordination of care.
== END 2019-10-18 11:21 | disposition home or self-care (01) ==
LOC: SC 11:20
PROVIDERS: ATTEND Internal Medicine Pulmonary Disease
DX: R06.81 Apnea, not elsewhere classified (principal); R06.83 Snoring; E66.01 Morbid (severe) obesity due to excess calories

== ENCOUNTER 2019-11-28 08:08 | Emergency (ER) | payer MEDICAID ==
--- NOTE | 2019-11-28 08:18 | ED Physician Documentation ---
PD HPI FEMALE - Stated complaint Stated Complaint: FEMALE - History obtained from History obtained from: Patient - History of Present Illness Timing - onset: Yesterday Timing - duration: Days (1-2) Timing - details: Gradual onset, Still present Associated symptoms: Vaginal pain, Vaginal discharge (states is tender and discharge inner labia. Feels similar to yeast infections. Has been on antibiotic Keflex for 1 1/2 weeks for infraumbilical surgical wound infection that has continued with some redness though minimal discharge now. Not completely better on the abx and cleansing.). No: Fever Contributing factors: Sexually active (partner told her that his prior sexual partner was Dx with Chlamydia.) Similar symptoms before: Has not had sx before Recently seen: Clinic, Emergency Dept (seen ER for the wound infection and Rx Keflex.), Surgery (gallbladder surgery without complications, but has had skin wound infection for past 1 1/2 weeks, improved but not resolved.) Review of Systems Constitutional: denies: Fever, Chills, Myalgias Nose: denies: Rhinorrhea / runny nose, Congestion Throat: denies: Sore throat Respiratory: denies: Cough GI: denies: Nausea, Vomiting, Diarrhea : reports: Discharge. 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(s) : Chronic bladder infection HEENT: None Psych: Depression, Anxiety, Panic attacks, ADD/ADHD Musculoskeletal: Chronic back pain Derm: Rosacea - Past Surgical History Past Surgical History: Yes General: Cholecystectomy /WHITE SIDEWALL TIRE BUFFER: section, Other HEENT: Tonsil/Adenoidectomy - Present Medications Home Medications: Ambulatory Orders Medication Instructions Recorded Confirmed Albuterol Sulf [Ventolin Hfa 1 - 2 puffs INH Q4HR PRN #1 inhaler 05/01/18 09/26/19 Inhaler] Lorazepam [Ativan] 1 mg PO Q8HR PRN 05/01/18 09/26/19 Hydrocodone/Acetaminophen [[place] 1 each PO Q6H PRN #15 tablet 08/30/19 09/26/19 5-325 Tablet] Lisdexamfetamine Dimesylate 70 mg PO DAILY 09/26/19 09/26/19 [Vyvanse] Meloxicam [Mobic] 7.5 mg PO BID PRN #20 tablet 10/16/19 Cephalexin [Keflex] 500 mg PO QID #27 capsule 11/19/19 Clotrimazole/Betamethasone Crm 1 applic TOP BID 5 Days #15 g 11/28/19 [Lotrisone Cream] Doxycycline Monohydrate 100 mg PO BID #14 tablet 11/28/19 Fluconazole [Diflucan] 150 mg PO Q3D #3 tablet 11/28/19 Mupirocin 1 applic TP TID #15 g 11/28/19 - Allergies Allergies/Adverse Reactions: Allergies Allergy/AdvReac Type Severity Reaction Status Date / Time acetaminophen [From Vicodin] AdvReac Headache Verified 11/28/19 08:19 hydrocodone [From Vicodin] AdvReac Headache Verified 11/28/19 08:19 - Social History Does the pt smoke?: No Smoking Status: Never smoker Does the pt drink ETOH?: No Does the pt have substance abuse?: No - Immunizations Immunizations are current?: Yes Immunizations: TDAP >10years/unknown - POLST Patient has POLST: No PD ED PE NORMAL - Vitals Vital signs reviewed: Yes - General General: Alert and oriented X 3, No acute distress, Well developed/nourished - Neck Neck: Supple, no meningeal sign, No adenopathy - Cardiac Cardiac: RRR, No murmur - Respiratory Respiratory: Clear bilaterally - Abdomen Abdomen: Normal bowel sounds, Soft, Non distended, No organomegaly, Other (infraumbilical is small incision c/w scope, with mild dehiscence and apparent small stitch knot with tails under the skin level. Redness around the edges in small rim. No drainage but does have white/yellow base fluid. No fluid abscess under the skin. I cut the small knot/tail out with scissor. ) - Female Female : Deferred - Back Back: No CVA TTP - Derm Derm: Normal color, Warm and dry Results - Vitals Vitals: Vital Signs - 24 hr 11/28/19 08:13 Temperature 36 C L Heart Rate 81 Respiratory 20 Rate Blood Pressure 155/96 H O2 Saturation 97 Oxygen O2 Source Room air - Labs Labs: Microbiology 11/28/19 08:54 Wound Culture - Preliminary Abdomen Laboratory Tests 11/28/19 11/28/19 11/28/19 08:27 09:00 09:00 Urine Color YELLOW Urine Clarity HAZY Urine pH 5.5 Ur Specific [place] >=1.030 H Urine Protein TRACE Urine Glucose (UA) NEGATIVE Urine Ketones TRACE Urine Occult Blood TRACE-INTA Urine Nitrite NEGATIVE Urine Bilirubin NEGATIVE Urine Urobilinogen 0.2 (NORMAL) Ur Leukocyte Esterase SMALL H Urine RBC 0-5 Urine WBC 6-10 H Ur Squamous Epith Cells MANY Squamous H Urine Bacteria Few Ur Microscopic Review INDICATED Urine Culture Comments NOT INDICATED Urine HCG, Qual NEGATIVE C. glabrata (PCR) NEGATIVE C. krusei (PCR) NEGATIVE Jing species DNA POSITIVE A Chlam trachomat DNA PCR NEGATIVE N.gonorrhoeae DNA (PCR) NEGATIVE T. vaginalis (PCR) NEGATIVE NEGATIVE Bact Vaginosis (PCR) POSITIVE A PD MEDICAL DECISION MAKING - ED course Complexity details: considered differential (seems likely to be yeast infection s/p abx for wound infection. Wound not all healed, so consider MRSA and will change abx. Give DIflucan/antifungal cream too. Can test for STD/BV by self swab. ), d/w patient Departure - Departure Disposition: 01 Home, Self Care Clinical Impression: Yeast vaginitis, Infection involving stitch with abscess Condition: Stable Record reviewed to determine appropriate education?: Yes Instructions: ED Wound Infec After Surgery, ED Vaginal Infec Fungal Jing Prescriptions: Fluconazole [Diflucan] 150 mg PO Q3D #3 tablet Doxycycline Monohydrate 100 mg PO BID #14 tablet Clotrimazole/Betamethasone Crm [Lotrisone Cream] 1 applic TOP BID 5 Days #15 g Mupirocin 1 applic TP TID #15 g Comments: Regarding the abdominal wound, I would stop the cephalexin and changed to doxycycline twice daily for the next 5 to 7 days until it appears better healed. I think having the stitch tails out will help it heal as well. Use mupirocin topical antibiotic 2-3 times daily lightly to the area after cleaning it. Regarding the vaginitis, it does sound most likely to be yeast and we can use the Diflucan every 3 days for a week since he will still be on antibiotics. You can use Lotrisone (antifungal and steroid) to the labial area twice daily for several days to help reduce local irritation as well. We will call you if there is any positive tests off the vaginal cultures. Recheck if not improving well over the next several days. Discharge Date/Time: 11/28/19 09:27
[2019-11-28 08:19] VITALS: BP 155/96
[2019-11-28 08:36] LABS: BILIRUBIN,URINE NEGATIVE (NEGATIVE); GLUCOSE, URINE (UA) NEGATIVE (NEGATIVE); KETONES,URINE (UA) TRACE mg/dL (NEGATIVE); LEUKOCYTE ESTERASE, URINE SMALL (NEGATIVE); NITRITE,URINE NEGATIVE (NEGATIVE); OCCULT BLOOD,URINE TRACE-INTA (NEGATIVE); PH,URINE 5.5 PH (5.0-7.5); PROTEIN,URINE TRACE mg/dL (NEGATIVE); UROBILINOGEN,URINE 0.2 (NORMAL) E.U./dL (NORMAL)
[2019-11-28 08:38] LABS: CLARITY,URINE HAZY (CLEAR); HCG UR QUAL NEGATIVE
[2019-11-28 08:47] LABS: BACTERIA,URINE Few /HPF (None Seen); RBC,URINE 0-5 /HPF (0-5); SQUAMOUS EPITHELIAL CELL,UR MANY Squamous (<= Few)
[2019-11-28] MEDS ORDERED: DOXYCYCLINE 100 MG TABLET PO STA (09:05)
[2019-11-28 11:12] LABS: CANDIDA GROUP DNA POSITIVE (NEGATIVE); CANDIDA KRUSEI DNA NEGATIVE (NEGATIVE); TRICHOMONAS VAGINALIS DNA NEGATIVE (NEGATIVE)
[2019-11-28 21:33] LABS: TRICHOMONAS VAGINALIS DNA NEGATIVE (NEGATIVE)
== END 2019-11-28 09:27 | disposition home or self-care (01) ==
LOC: ED 08:08
DX: B37.3 Candidiasis of vulva and vagina (principal); T81.41XA Infection following a procedure, superficial incisional surgical site, initial encounter; L02.211 Cutaneous abscess of abdominal wall; T81.31XA Disruption of external operation (surgical) wound, not elsewhere classified, initial encounter; Y83.8 Other surgical procedures as the cause of abnormal reaction of the patient, or of later complication, without mention of misadventure at the time of the procedure; Z90.49 Acquired absence of other specified parts of digestive tract; I10 Essential (primary) hypertension
CPT/HCPCS: 81001; 81025; 87070; 87181; 87205; 87481; 87491; 87591; 87661; 87801; 99283; 99284; A9270; 81003; 87086

== ENCOUNTER 2019-12-14 07:00 | Outpatient (CLI) | payer MEDICAID ==
[2019-12-14 20:30] LABS: CANDIDA GROUP DNA NEGATIVE (NEGATIVE); CANDIDA KRUSEI DNA NEGATIVE (NEGATIVE); TRICHOMONAS VAGINALIS DNA NEGATIVE (NEGATIVE)
== END 2019-12-14 23:59 | disposition home or self-care (01) ==
LOC: LAB.R 07:00
PROVIDERS: ATTEND Family Medicine
DX: Z20.2 Contact with and (suspected) exposure to infections with a predominantly sexual mode of transmission (principal)
CPT/HCPCS: 87661; 87801

== ENCOUNTER 2020-02-01 13:56 | Emergency (ER) | payer MEDICAID ==
[2020-02-01] MEDS ORDERED: SODIUM CHLORIDE 0.9% 1,000 ML IV STA (14:41)
[2020-02-01] MEDS ORDERED: KETOROLAC 30 MG/ML VIAL IVP STA (14:41)
--- NOTE | 2020-02-01 14:46 | ED Physician Documentation ---
PD HPI HEADACHE - Stated complaint Stated Complaint: CHEST PX - Chief complaint Chief Complaint: Neuro - History obtained from History obtained from: Patient - Additional information Additional information: 29-year-old woman with history of migraines has had a headache for about a week. Is frontal and throbbing. It is associated with a productive cough, body aches, chills and low-grade fever up to mid 99. No sick contacts. No recent travel. 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) : Chronic bladder infection HEENT: None Psych: Depression, Anxiety, Panic attacks, ADD/ADHD Musculoskeletal: Chronic back pain Derm: Rosacea - Past Surgical History Past Surgical History: Yes General: Cholecystectomy /CONSTRUCTION TEACHER: section, Other HEENT: Tonsil/Adenoidectomy - Present Medications Home Medications: Ambulatory Orders Medication Instructions Recorded Confirmed Albuterol Sulf [Ventolin Hfa 1 - 2 puffs INH Q4HR PRN #1 inhaler 05/01/1809/25 Inhaler] Lorazepam [Ativan] 1 mg PO Q8HR PRN 05/01/18 09/26/19 Hydrocodone/Acetaminophen [[place] 1 each PO Q6H PRN #15 tablet 08/30/19 09/26/19 5-325 Tablet] Lisdexamfetamine Dimesylate 70 mg PO DAILY 09/26/19 09/26/19 [Vyvanse] Meloxicam [Mobic] 7.5 mg PO BID PRN #20 tablet 10/16/19 Cephalexin [Keflex] 500 mg PO QID #27 capsule 11/19/19 Clotrimazole/Betamethasone Crm 1 applic TOP BID 5 Days #15 g 11/28/19 [Lotrisone Cream] Doxycycline Monohydrate 100 mg PO BID #14 tablet 11/28/19 Fluconazole [Diflucan] 150 mg PO Q3D #3 tablet 11/28/19 Mupirocin 1 applic TP TID #15 g 11/28/19 Oxycodone HCl/Acetaminophen 1 - 2 each PO Q6H PRN #10 tablet 02/01/20 [Percocet 5-325 mg Tablet] - Allergies Allergies/Adverse Reactions: Allergies Allergy/AdvReac Type Severity Reaction Status Date / Time acetaminophen [From Vicodin] AdvReac Headache Verified 02/01/20 14:13 hydrocodone [From Vicodin] AdvReac Headache Verified 02/01/20 14:13 - Social History Does the pt smoke?: No Smoking Status: Never smoker Does the pt drink ETOH?: No Does the pt have substance abuse?: No - Immunizations Immunizations are current?: Yes Immunizations: TDAP >10years/unknown - POLST Patient has POLST: No PD ED PE NORMAL - Vitals Vital signs reviewed: Yes - General General: Alert and oriented X 3, No acute distress - HEENT HEENT: PERRL, EOMI - Neck Neck: Supple, no meningeal sign, No bony TTP - Cardiac Cardiac: RRR, No murmur - Respiratory Respiratory: No respiratory distress, Other (Mild expiratory wheezing without other focal findings) - Abdomen Abdomen: Non tender - Back Back: No CVA TTP, No spinal TTP - Derm Derm: Normal color, Warm and dry - Extremities Extremities: No edema, No calf tenderness / cord - Neuro Neuro: Alert and oriented X 3, Normal speech Results - Vitals Vitals: Vital Signs - 24 hr 02/01/20 14:07 Temperature 36.7 C Heart Rate 77 Respiratory 14 Rate Blood Pressure 145/91 H O2 Saturation 97 Oxygen O2 Source Room air - EKG (time done) 1358 Rate: Rate (enter#) (74) Rhythm: NSR Barto: Normal Intervals: Normal FL QRS: Normal Ischemia: Normal ST segments Computer interpretation: Agree with computer - Labs Labs: Laboratory Tests 02/01/20 02/01/20 02/01/20 15:07 15:07 15:25 WBC 8.8 RBC 4.73 Hgb 14.3 Hct 44.0 MCV 93.0 MCH 30.2 MCHC 32.5 RDW 11.9 L Plt Count 308 MPV 9.4 Neut # (Auto) 4.3 Lymph # (Auto) 3.5 [place] # (Auto) 0.7 Eos # (Auto) 0.2 Baso # (Auto) 0.0 Absolute Nucleated RBC 0.00 Nucleated RBC % 0.0 Sodium 139 Potassium 3.8 Chloride 104 Carbon Dioxide 26 Anion Gap 9.0 BUN 11 Creatinine 0.7 Estimated GFR (MDRD) 98 Glucose 97 Calcium 9.4 Total Bilirubin 0.3 AST 17 ALT 17 Alkaline Phosphatase 71 Total Protein 7.9 Albumin 4.4 Globulin 3.5 Albumin/Globulin Ratio 1.3 Urine Color YELLOW Urine Clarity CLEAR Urine pH 7.0 Ur Specific [place] 1.020 Urine Protein NEGATIVE Urine Glucose (UA) NEGATIVE Urine Ketones NEGATIVE Urine Occult Blood NEGATIVE Urine Nitrite NEGATIVE Urine Bilirubin NEGATIVE Urine Urobilinogen 0.2 (NORMAL) Ur Leukocyte Esterase NEGATIVE Ur Microscopic Review NOT INDICATED Urine Culture Comments NOT INDICATED Urine HCG, Qual NEGATIVE - Rads (name of study) 1v chest Radiology: EMP read contemporaneously (No clear acute disease, somewhat limited by body habitus.) PD MEDICAL DECISION MAKING - ED course ED course: 29-year-old woman presents with what sounds like a viral syndrome, body aches, low-grade temperatures, headache. No evidence of meningitis. History is i nconsistent with subarachnoid hemorrhage. Feeling better after IV fluids and Toradol. Departure - Departure Disposition: 01 Home, Self Care Clinical Impression: Viral syndrome Headache Qualifiers: Headache type: other headache syndrome Qualified Code(s): G44.89 - Other headache syndrome Condition: Good Record reviewed to determine appropriate education?: Yes Instructions: ED Viral Syndrome Prescriptions: Oxycodone HCl/Acetaminophen [Percocet 5-325 mg Tablet] 1 - 2 each PO Q6H PRN #10 tablet PRN Reason: pain Comments: You have a Covid test pending. You need to self quarantine until the result is done and negative. Do not leave your house. Do not get near anybody. The results should be done in 48 to 72 hours. We will call with a positive result, the fastest way to get a negative result for confirmation though is to go to the hospital website at [email or web address], click on the my [facility] tab and sign up for the patient portal.
[2020-02-01 15:17] LABS: BASOPHILS % (AUTO) 0.3 %; EOSINOPHILS # (AUTO) 0.2 10^3/uL (0.0-0.7); EOSINOPHILS % (AUTO) 2.2 %; HGB - HEMOGLOBIN 14.3 g/dL (12.0-16.0); LYMPHOCYTES # (AUTO) 3.5 10^3/uL (1.5-3.5); LYMPHOCYTES % (AUTO) 39.8 %; MEAN CORPUSCULAR HEMOGLOBIN 30.2 pg (27.0-31.0); MEAN CORPUSCULAR HGB CONC 32.5 g/dL (32.0-36.0); MEAN PLATELET VOLUME 9.4 fL (7.9-10.8); MONOCYTES # (AUTO) 0.7 10^3/uL (0.0-1.0); MONOCYTES % (AUTO) 8.3 %; NEUTROPHILS # (AUTO) 4.3 10^3/uL (1.5-6.6); NEUTROPHILS % (AUTO) 49.2 %; PLT - PLATELET COUNT 308 10^3/uL (130-450); RED BLOOD COUNT 4.73 10^6/uL (4.20-5.40); RED CELL DISTRIBUTION WIDTH 11.9 % (12.0-15.0); WHITE BLOOD COUNT 8.8 x10^3/uL (4.8-10.8)
--- NOTE | 2020-02-01 15:17 | XRAY Report ---
PROCEDURE: Chest 1 View X-Ray INDICATIONS: cough TECHNIQUE: One view of the chest was acquired. COMPARISON: Prior chest plain film 08/30/2019 reviewed. FINDINGS: Surgical changes and devices: None. Lungs and pleura: No pleural effusions or pneumothorax. Lungs are mildly edematous however large ariel dy habitus and reduced inspiratory volume could produce a false positive impression of mild pulmonary edema. Mediastinum: Mediastinal contours appear normal. Heart size is not significantly enlarged. Bones and chest wall: No suspicious bony lesions. Overlying soft tissues appear unremarkable. IMPRESSION: Mildly reduced inspiratory volume, large body habitus. The appearance of the lung parenchyma raises c oncern for slight pulmonary edema but this may represent a false positive appearance factors noted ab ove. The heart size is near but not at or above the upper limits of normal in size. Consolidative pne umonia is not seen. Reviewed by: Stefano Duncan MD on 02/01/2020 3:15 PM PDT Approved by: Stefano Duncan MD on 02/01/2020 3:15 PM PDT Station ID: [id number]
[2020-02-01 15:26] LABS: ALBUMIN 4.4 g/dL (3.2-5.5); ALBUMIN/GLOBULIN RATIO 1.3 (1.0-2.2); BILIRUBIN,TOTAL 0.3 mg/dL (0.2-1.0); CALCIUM 9.4 mg/dL (8.5-10.3); CREATININE 0.7 mg/dL (0.4-1.0); TOTAL PROTEIN 7.9 g/dL (6.7-8.2)
[2020-02-01 15:39] LABS: BILIRUBIN,URINE NEGATIVE (NEGATIVE); GLUCOSE, URINE (UA) NEGATIVE (NEGATIVE); KETONES,URINE (UA) NEGATIVE (NEGATIVE); LEUKOCYTE ESTERASE, URINE NEGATIVE (NEGATIVE); NITRITE,URINE NEGATIVE (NEGATIVE); OCCULT BLOOD,URINE NEGATIVE (NEGATIVE); PROTEIN,URINE NEGATIVE (NEGATIVE); UROBILINOGEN,URINE 0.2 (NORMAL) E.U./dL (NORMAL)
[2020-02-01 15:41] LABS: CLARITY,URINE CLEAR (CLEAR); HCG UR QUAL NEGATIVE
[2020-02-01 16:00] VITALS: BP 135/88
== END 2020-02-01 16:05 | disposition home or self-care (01) ==
LOC: ED 13:56
DX: B34.9 Viral infection, unspecified (principal); Z20.828 Contact with and (suspected) exposure to other viral communicable diseases; G44.89 Other headache syndrome; J45.909 Unspecified asthma, uncomplicated; I10 Essential (primary) hypertension
CPT/HCPCS: 36415; 71045; 80053; 81001; 81003; 81025; 85025; 87086; 93005; 96374; 99284

== ENCOUNTER 2020-02-15 08:00 | Outpatient (CLI) | payer MEDICAID | END 2020-02-15 23:59 | disposition home or self-care (01) | LOC: LAB.R 08:00 | PROVIDERS: ATTEND Obstetrics & Gynecology | DX: R35.0 Frequency of micturition (principal) | CPT/HCPCS: 87086; 87181 ==

== ENCOUNTER 2020-07-08 13:15 | Emergency (ER) | payer MEDICAID ==
[2020-07-08 13:23] VITALS: BP 157/90
[2020-07-08] MEDS ORDERED: KETOROLAC 60 MG/2 ML VIAL IM STA (13:33)
[2020-07-08] MEDS ORDERED: ONDANSETRON ODT 4 MG TABLET TL STA (13:34)
--- NOTE | 2020-07-08 13:36 | ED Physician Documentation ---
History of Present Illness - Stated complaint Stated Complaint: NAUSEA/HEAD PX - Chief complaint Chief Complaint: General - History obtained from History obtained from: Patient - Additonal information Additional information: She had Covid about a month ago. She got first dose Moderna vaccine Thursday and yesterday had gradual onset global headache associated with nausea and fatigue. It is not associated with fevers, respiratory symptoms. It is not typical for her usual migraines, there is no light sensitivity. She denies any possibility of but notes she may also be somewhat sick because she took a day after pill yesterday. Review of Systems Constitutional: reports: Fatigue. 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: section, Other HEENT: Tonsil/Adenoidectomy - Present Medications Home Medications: Ambulatory Orders Medication Instructions Recorded Confirmed Albuterol Sulf [Ventolin Hfa 1 - 2 puffs INH Q4HR PRN #1 inhaler 05/01/18 07/08/20 Inhaler] Lorazepam [Ativan] 1 mg PO Q8HR PRN 05/01/18 07/08/20 Lisdexamfetamine Dimesylate 70 mg PO DAILY 09/26/19 07/08/20 [Vyvanse] Mirtazapine [Remeron] 1 tab PO DAILY 07/08/20 07/08/20 Ondansetron Odt [Zofran] 4 mg TL Q6H PRN #10 tablet 07/08/20 Oxycodone HCl/Acetaminophen 1 - 2 each PO Q6H PRN #7 tablet 07/08/20 [Percocet 5-325 mg Tablet] lamoTRIgine [Lamictal Xr] 1 tab PO DAILY 07/08/20 07/08/20 - Allergies Allergies/Adverse Reactions: Allergies Allergy/AdvReac Type Severity Reaction Status Date / Time acetaminophen [From Vicodin] AdvReac Headache Verified 07/08/20 13:23 hydrocodone [From Vicodin] AdvReac Headache Verified 07/08/20 13:23 - Social History Does the pt smoke?: No Smoking Status: Never smoker Does the pt drink ETOH?: No Does the pt have substance abuse?: No - Immunizations Immunizations are current?: Yes Immunizations: TDAP >10years/unknown - POLST Patient has POLST: No PD ED PE NORMAL - Vitals Vital signs reviewed: Yes - General General: Alert and oriented X 3, No acute distress - HEENT HEENT: PERRL, EOMI, Pharynx benign - Neck Neck: Supple, no meningeal sign, No bony TTP - Cardiac Cardiac: RRR, No murmur - Respiratory Respiratory: No respiratory distress, Clear bilaterally - Abdomen Abdomen: Non tender - Back Back: No CVA TTP, No spinal TTP - Derm Derm: Normal color, Warm and dry - Extremities Extremities: No edema, No calf tenderness / cord - Neuro Neuro: Alert and oriented X 3, Normal speech Results - Vitals Vitals: Vital Signs - 24 hr 07/08/20 07/08/20 13:20 13:35 Temperature 36.4 C L 36.4 C L Heart Rate 90 90 Respiratory 18 18 Rate Blood Pressure 157/90 H 157/90 H O2 Saturation 95 95 Oxygen O2 Source Room air PD MEDICAL DECISION MAKING - ED course ED course: Timing and pattern are consistent with probably this being due to a side effect of. Nothing in the history or physical to suggest subarachnoid hemorrhage or meningitis. Departure - Departure Disposition: 01 Home, Self Care Clinical Impression: Headache Qualifiers: Headache type: unspecified Headache chronicity pattern: acute headache Intractability: not intractable Qualified Code(s): R51.9 - Headache, unspecified Condition: Good Record reviewed to determine appropriate education?: Yes Instructions: ED Cephalgia Unspecified Prescriptions: Oxycodone HCl/Acetaminophen [Percocet 5-325 mg Tablet] 1 - 2 each PO Q6H PRN #7 tablet PRN Reason: pain Ondansetron Odt [Zofran] 4 mg TL Q6H PRN #10 tablet PRN Reason: Nausea / Vomiting Comments: Return if worsening or if symptoms are not gone in the next day or 2. Discharge Date/Time: 07/08/20 13:46
== END 2020-07-08 13:46 | disposition home or self-care (01) ==
LOC: ED 13:15
DX: R51.9 Headache, unspecified (principal); R11.0 Nausea; R53.83 Other fatigue; Z09 Encounter for follow-up examination after completed treatment for conditions other than malignant neoplasm; Z86.16 Personal history of COVID-19; I10 Essential (primary) hypertension
CPT/HCPCS: 96372; 99283; 99284; Q0162

== ENCOUNTER 2020-11-01 10:38 | Outpatient (CLI) | payer MEDICAID ==
--- NOTE | 2020-11-01 13:02 | Ultrasound Report ---
PROCEDURE: Chest INDICATIONS: RT LOWER BACK SUBCUTANEOUS MASS TECHNIQUE: Real-time scanning was performed at the area of interest in the right back. COMPARISON: None. FINDINGS: A small ill-defined hyperechoic lesion measuring 0.8 x 0.6 x 0.9 cm is seen in the subcutaneous tissu es at the patient-indicated palpable area of concern. There is no increased vascularity. IMPRESSION: Small poorly-defined hyperechoic subcutaneous lesion measuring 0.9 cm at the palpable area of concern in the right back is most likely a small lipoma. Further evaluation with targeted MRI or CT could be obtained for further evaluation if indicated clinically. Reviewed by: Zoran Hackett MD on 11/01/2020 12:01 PM FRANCISCO J Approved by: Zoran Hackett MD on 11/01/2020 12:01 PM FRANCISCO J Station ID: [id number]
== END 2020-11-01 10:39 | disposition home or self-care (01) ==
LOC: DI 10:38
PROVIDERS: ATTEND Nurse Practitioner Family
DX: R93.89 Abnormal findings on diagnostic imaging of other specified body structures (principal)

== ENCOUNTER 2020-11-26 07:59 | Day surgery (SDC) | payer MEDICAID ==
[2020-11-26] MEDS ORDERED: ceFAZolin 3 GM in SODIUM CHLORIDE 0.9% 100ML 100 ML IV ONE (08:00)
[2020-11-26] MEDS ORDERED: LACTATED RINGERS 1,000 ML IV ONE (08:01)
[2020-11-26 08:16] VITALS: BP 154/106
--- NOTE | 2020-11-26 08:39 | ANESTHESIA ---
Pre-Anesthesia VS, & Labs - Diagnosis right flank lipoma - Procedure excision of right flank lipoma Vital Signs: Temp Pulse Resp BP Pulse Ox 35.7 C L 71 14 154/106 H 98 11/26/20 08:07 11/26/20 08:07 11/26/20 08:07 11/26/20 08:07 11/26/20 08:07 Height: 5 ft 4 in Weight (kg): 147 kg Body Mass Index: 55.6 BMI Classification: Morbidly Obese - NPO >8 hours Last Fluid Intake: H2O at 0530 - Is Patient ?: No Home Medications and Allergies Lorazepam [Ativan] 1 mg PO Q8HR PRN 05/01/18 Lisdexamfetamine Dimesylate [Vyvanse] 70 mg PO DAILY 09/26/19 Mirtazapine [Remeron] 1 tab PO DAILY 07/08/20 lamoTRIgine [Lamictal Xr] 1 tab PO DAILY 07/08/20 Allergies/Adverse Reactions: Allergies Allergy/AdvReac Type Severity Reaction Status Date / Time hydrocodone [From Vicodin] AdvReac Headache Verified 07/08/20 13:23 Anes History & Medical History - Anesthetic History Anesthesia Complications: reports: Post-Operative Nausea/Vomiting - Medical History Cardiovascular: reports: Hypertension, Murmur Pulmonary: reports: Asthma (Last used inhaler 6mo ago), Shortness of breath Gastrointestinal: reports: GERD (occasional) Urinary: reports: None Neuro: reports: Migraines Musculoskeletal: reports: Chronic back pain Endocrine/Autoimmune: reports: None Blood Disorders: reports: None Skin: reports: None Smoking Status: Current every day smoker (1/2 pack per day) Psychosocial: reports: Depression, Anxiety, Amphetamine (Last used yesterday), Cannabis, Other (PTSD) History of Cancer?: No - Surgical History General: reports: Cholecystectomy Eyes Ears Nose Throat (EENT): reports: Tonsil/Adenoidectomy Gynecologic: reports: section, Other Exam General: Alert, Oriented x3, Cooperative, No acute distress Dental: WNL Mouth Openin Fingerbreadth Neck Mobility: Normal Mallampati classification: III Thyromental Distance: 4-6 cm Respiratory: Lungs clear, Normal breath sounds, No respiratory distress, No accessory muscle use Cardiovascular: Regular rate, Normal S1, Normal S2, No murmurs Mental/Cognitive Status: Alert/Oriented X3, Normal for patient Plan Anesthesia Type: Other (Due to recent methamphetamine usage (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 Case discussed with surgeon and she is in agreement. Discussed with patient and she agrees to reschedule when she has abstained from usage.) Consent for Procedure(s) Verified and Reviewed: Yes Code Status: Attempt Resuscitation ASA classification: 3-Severe systemic disease Is this case an emergency?: No
[2020-11-26] MEDS ORDERED: SCOPOLAMINE PATCH TOP ONE (08:40)
== END 2020-11-26 08:00 | disposition home or self-care (01) ==
LOC: SDS 07:59
PROVIDERS: ATTEND Surgery
DX: D17.1 Benign lipomatous neoplasm of skin and subcutaneous tissue of trunk (principal); Z53.09 Procedure and treatment not carried out because of other contraindication
CPT/HCPCS: J3490; J7120

== ENCOUNTER 2020-12-18 17:18 | Outpatient (CLI) | payer MEDICAID ==
[2020-12-18 21:11] LABS: BILIRUBIN,URINE NEGATIVE (NEGATIVE); GLUCOSE, URINE (UA) NEGATIVE (NEGATIVE); KETONES,URINE (UA) NEGATIVE (NEGATIVE); LEUKOCYTE ESTERASE, URINE TRACE (NEGATIVE); NITRITE,URINE POSITIVE (NEGATIVE); OCCULT BLOOD,URINE NEGATIVE (NEGATIVE); PROTEIN,URINE 30 mg/dL (NEGATIVE); UROBILINOGEN,URINE 1 (NORMAL) E.U./dL (NORMAL)
[2020-12-18 21:25] LABS: AMORPHOUS SEDIMENT,UR Marked /LPF; BACTERIA,URINE Moderate /HPF (None Seen); CLARITY,URINE CLOUDY (CLEAR); CRYSTALS,URINE 6-10 Calcium Oxalate /LPF; RBC,URINE 0-5 /HPF (0-5); SQUAMOUS EPITHELIAL CELL,UR FEW Squamous (<= Few)
== END 2020-12-18 23:59 | disposition home or self-care (01) ==
LOC: LAB.N 17:18
PROVIDERS: ATTEND Family Medicine
DX: R39.9 Unspecified symptoms and signs involving the genitourinary system (principal)
CPT/HCPCS: 81001; 87086; 87181

== ENCOUNTER 2021-03-30 08:37 | Emergency (ER) | payer MEDICAID ==
--- NOTE | 2021-03-30 09:57 | ED Physician Documentation ---
PD HPI URI - Stated complaint Stated Complaint: CONGESTION/SOA - Chief complaint Chief Complaint: Resp - History obtained from History obtained from: Patient - History of Present Illness Timing - onset: How many weeks ago (1) Timing duration: Weeks (1) Timing details: Gradual onset, Still present (worse the past 1-2 days, with yellow nasal congestion and frontal sinus pressure. Cough with some wheezing component. Her son and were sick last week. They tested neg COVID and presumed had other URI. Patient now sick. Negative home rapid AG test.) Associated symptoms: Nasal congestion, Sinus pain, Dry cough, Dyspnea. No: Fever, Chest pain, NVD Contributing factors: Sick contact (family members, with her son first ill and presumed got ill from school friends.) Improves by: No: Medication (took some Tessalon without improvement of cough.) Similar symptoms before: Has not had sx before Recently seen: Not recently seen Review of Systems Constitutional: reports: Chills, Myalgias. denies: Fever Nose: reports: Rhinorrhea / runny nose, Congestion, Sinus pressure / pain (for 2 days with yellow drainage) Throat: denies: Sore throat Cardiac: denies: Chest pain / pressure, Palpitations Respiratory: reports: Dyspnea, Cough, Wheezing GI: denies: Nausea, Vomiting, Diarrhea : reports: Now EGA (20 weeks). 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, Other HEENT: Tonsil/Adenoidectomy - Present Medications Home Medications: Ambulatory Orders Medication Instructions Recorded Confirmed Albuterol Sulf [Ventolin Hfa 1 - 2 puffs INH Q4HR PRN #1 inhaler 05/01/18 03/30/21 Inhaler] Ondansetron Odt [Zofran] 4 mg TL Q6H PRN #10 tablet 07/08/20 03/30/21 Albuterol Sulf [Ventolin Hfa 3 - 4 puffs INH Q4HR PRN #1 inhaler 03/30/21 Inhaler] Amoxicillin 500 mg PO TID #15 cap 03/30/21 Benzonatate [Tessalon] 100 mg PO TID PRN #20 cap 03/30/21 Butalbital/Acetaminophen 1 each PO Q4H PRN 03/30/21 03/30/21 [Acetaminophn-Butalbital 325-50] Cetirizine [ZyrTEC] 10 mg PO BID #15 tablet 03/30/21 Labetalol [Trandate] 100 mg PO BID 03/30/21 03/30/21 Pnv No.95/Ferrous Fum/Folic AC 1 each PO DAILY 03/30/21 03/30/21 [ Caplet] dexAMETHasone [Decadron] 4 mg PO DAILY #5 tablet 03/30/21 hydrOXYzine HCL [Hydroxyzine HCl] 50 mg PO BID PRN 03/30/21 03/30/21 - Allergies Allergies/Adverse Reactions: Allergies Allergy/AdvReac Type Severity Reaction Status Date / Time hydrocodone [From Vicodin] AdvReac Headache Verified 03/30/21 08:57 - Social History Does the pt smoke?: No Smoking Status: Current every day smoker (1/2 pack per day) Does the pt drink ETOH?: No Does the pt have substance abuse?: No - Immunizations Immunizations are current?: Yes Immunizations: TDAP >10years/unknown - POLST Patient has POLST: No PD ED PE NORMAL - Vitals Vital signs reviewed: Yes - General General: Alert and oriented X 3, No acute distress, Well developed/nourished - HEENT HEENT: Ears normal, Moist mucous membranes, Pharynx benign - Neck Neck: Supple, no meningeal sign, No adenopathy - Cardiac Cardiac: RRR, No murmur - Respiratory Respiratory: No: Clear bilaterally (no coarse sounds. Mild end expiratory central wheezing. ) - Abdomen Abdomen: Soft, Non tender - Derm Derm: Normal color, Warm and dry - Extremities Extremities: No edema, No calf tenderness / cord Results - Vitals Vitals: Vital Signs - 24 hr 03/30/21 03/30/21 03/30/21 08:53 10:00 10:41 Temperature 36.8 C Heart Rate 78 83 71 Respiratory 20 18 18 Rate Blood Pressure 141/91 H 149/101 H O2 Saturation 97 100 03/30/21 11:49 Temperature Heart Rate 70 Respiratory 17 Rate Blood Pressure 136/95 H O2 Saturation 100 Oxygen O2 Source Room air - Labs Labs: Laboratory Tests 03/30/21 10:00 Nasal Adenovirus (PCR) NOT DETECTED Nasal B. parapertussis DNA (PCR) NOT DETECTED Nasal Coronavir 229E PCR NOT DETECTED Nasal Coronavir HKU1 PCR NOT DETECTED Nasal Coronavir NL63 PCR NOT DETECTED Nasal Coronavir OC43 PCR NOT DETECTED Nasal Enterovir/Rhinovir PCR NOT DETECTED Nasal Influenza B PCR NOT DETECTED Nasal Influenza A PCR NOT DETECTED Nasal Parainfluen 1 PCR NOT DETECTED Nasal Parainfluen 2 PCR DETECTED A Nasal Parainfluen 3 PCR NOT DETECTED Nasal Parainfluen 4 PCR NOT DETECTED Nasal RSV (PCR) NOT DETECTED Nasal B.pertussis DNA PCR NOT DETECTED Nasal C.pneumoniae (PCR) NOT DETECTED Tanner Human Metapneumo PCR NOT DETECTED Nasal M.pneumoniae (PCR) NOT DETECTED Nasal SARS-CoV-2 (PCR) NOT DETECTED PD MEDICAL DECISION MAKING - ED course Complexity details: reviewed results (Parainfluenza by Igea. ), considered differential (Lungs have some central mild expiratory wheezing. No coarse sounds. Sats are good. I do not feel compelled for chest x-ray. Sounds like upper respiratory infection with now possible acute sinusitis. We can treat with appropriate medications.), d/w patient Departure - Departure Disposition: 01 Home, Self Care Clinical Impression: Upper respiratory infection Qualifiers: URI type: unspecified URI Qualified Code(s): J06.9 - Acute upper respiratory infection, unspecified Sinusitis Qualifiers: Sinusitis location: frontal Chronicity: acute Recurrence: non-recurrent Qu alified Code(s): J01.10 - Acute frontal sinusitis, unspecified Qualifiers: Weeks of gestation: 20 weeks Qualified Code(s): Z3A.20 - 20 weeks gestation of Condition: Stable Record reviewed to determine appropriate education?: Yes Instructions: ED Upper Resp Infec Abx Tx Prescriptions: Albuterol Sulf [Ventolin Hfa Inhaler] 3 - 4 puffs INH Q4HR PRN #1 inhaler PRN Reason: Shortness Of Air/Wheezing Amoxicillin 500 mg PO TID #15 cap dexAMETHasone [Decadron] 4 mg PO DAILY #5 tablet Benzonatate [Tessalon] 100 mg PO TID PRN #20 cap PRN Reason: Cough Cetirizine [ZyrTEC] 10 mg PO BID #15 tablet Comments: Your general symptoms sound like a viral infection and your test actually showed parainfluenza which is a common head and chest cold. However does sound like y ou likely have a flareup of asthma and also some sinusitis associated with it. Use the albuterol inhaler 3 to 4 puffs 4 times a day for the next several days to week. Decadron steroid for inflammation of the airways and sinuses daily for the next 5 days. Use Tessalon if needed for cough. Cetirizine antihistamine twice daily for the next several days to week. For potential bacterial component to the sinus symptoms, use amoxicillin 3 times a day for 5 days. Stay well-hydrated. Recheck if not improving well over the next few days and return if worse. I transmitted your prescriptions to the [facility] pharmacy. Discharge Date/Time: 03/30/21 11:51
[2021-03-30] MEDS ORDERED: CHERRY SYRUP 10 ML UDC PO ONE (10:19)
[2021-03-30] MEDS ORDERED: BENZONATATE 100 MG CAPSULE PO STA (10:19)
[2021-03-30] MEDS ORDERED: CETIRIZINE 10 MG TABLET PO STA (10:19)
[2021-03-30] MEDS ORDERED: ALBUTEROL NEB 2.5 MG/3 ML INH STA (10:19)
[2021-03-30] MEDS ORDERED: DEXAMETHASONE 10 MG/ML VIAL PO STA (10:19)
[2021-03-30] MEDS ORDERED: AMOXICILLIN 250 MG CAPSULE PO STA (10:20)
[2021-03-30 11:13] LABS: B. PARAPERTUSSIS- RESP PCR PAN NOT DETECTED; B. PERTUSSIS- RESP PCR PANEL NOT DETECTED; C. PNEUMONIAE- RESP PCR PANEL NOT DETECTED; CORONAVIRUS 229E-RESP PCR NOT DETECTED; CORONAVIRUS HKU1-RESP PCR NOT DETECTED; CORONAVIRUS NL63-RESP PCR NOT DETECTED; CORONAVIRUS OC43-RESP PCR NOT DETECTED; HUMAN METAPNEUMOVIRUS NOT DETECTED; INFLUENZA A- RESP PCR PANEL NOT DETECTED; INFLUENZA B - RESP PCR PANEL NOT DETECTED; M. PNEUMONIAE- RESP PCR PANEL NOT DETECTED; PARAINFLUENZA VIRUS 1 NOT DETECTED; PARAINFLUENZA VIRUS 2 DETECTED; PARAINFLUENZA VIRUS 3 NOT DETECTED; PARAINFLUENZA VIRUS 4 NOT DETECTED; RHINOVIRUS/ENTEROVIRUS NOT DETECTED; RSV- RESP PCR PANEL NOT DETECTED; SARS-CoV-2 -RESP PCR PANEL NOT DETECTED
[2021-03-30 11:51] VITALS: BP 136/95
== END 2021-03-30 11:51 | disposition home or self-care (01) ==
LOC: ED 08:37
DX: O99.519 Diseases of the respiratory system complicating pregnancy, unspecified trimester (principal); J06.9 Acute upper respiratory infection, unspecified; J01.10 Acute frontal sinusitis, unspecified; O16.2 Unspecified maternal hypertension, second trimester; O99.332 Smoking (tobacco) complicating pregnancy, second trimester; F17.200 Nicotine dependence, unspecified, uncomplicated; Z3A.20 20 weeks gestation of pregnancy; Z20.822 Contact with and (suspected) exposure to COVID-19
CPT/HCPCS: 0202U; 94640; 94664; 99283; 99284; A9270

== ENCOUNTER 2021-04-24 08:40 | Outpatient (CLI) | payer MEDICAID ==
[2021-04-24 12:13] LABS: ESTIMATED AVERAGE GLUCOSE 111 mg/dL (70-100); HEMOGLOBIN A1c% 5.5 % (4.27-6.07)
== END 2021-04-24 08:41 | disposition home or self-care (01) ==
LOC: LAB 08:40
PROVIDERS: ATTEND Obstetrics & Gynecology
DX: Z34.82 Encounter for supervision of other normal pregnancy, second trimester (principal); Z3A.25 25 weeks gestation of pregnancy
CPT/HCPCS: 36415; 82950; 83036

== ENCOUNTER 2021-06-14 09:18 | Outpatient (CLI) | payer MEDICAID ==
[2021-06-14 10:17] LABS: BILIRUBIN,URINE NEGATIVE (NEGATIVE); GLUCOSE, URINE (UA) NEGATIVE (NEGATIVE); KETONES,URINE (UA) NEGATIVE (NEGATIVE); LEUKOCYTE ESTERASE, URINE NEGATIVE (NEGATIVE); NITRITE,URINE NEGATIVE (NEGATIVE); OCCULT BLOOD,URINE NEGATIVE (NEGATIVE); PH,URINE 6.5 PH (5.0-7.5); PROTEIN,URINE NEGATIVE (NEGATIVE); UROBILINOGEN,URINE 0.2 (NORMAL) E.U./dL (NORMAL)
[2021-06-14 10:31] LABS: BACTERIA,URINE None Seen /HPF (None Seen); CLARITY,URINE CLEAR (CLEAR); RBC,URINE None Seen /HPF (0-5); SQUAMOUS EPITHELIAL CELL,UR FEW Squamous (<= Few); WBC,URINE 0-3 /HPF (0-5)
[2021-06-14 10:56] VITALS: BP 144/77
--- NOTE | 2021-06-14 11:03 | PROVIDER PROGRESS NOTE ---
- HPI Chief Complaint: Decreased movement Current : Vital Signs Temperature 98.4 F 06/14/21 09:39 Heart Rate 87 06/14/21 09:39 Respiratory Rate 06/14/21 09:39 Blood Pressure 144/81 H 06/14/21 09:39 Temperature 98.4 F 06/14/21 09:39 Heart Rate 87 06/14/21 09:39 Respiratory Rate 06/14/21 09:39 Blood Pressure 144/81 H 06/14/21 09:39 O2 Saturation - Procedures OB Procedure Performed: NST Diagnosis/Indication for NST: Decreased movement NST Procedure: NST Procedure Start Date 06/14/21 Start Time 10:14 Stop Time 10:43 Vibroacoustic Stimulation Used No Patient States Movement Yes Date performed: 06/14/2021 Date read: 06/14/2021 - Plan Plan: Patient is a 31-year-old -0-1-2 at 30 weeks 5 days gestation presenting to triage for low back pain. She says for the last several weeks she is having a sharp shooting pain in her right lower back. This gets worse with movement. Sometimes she feels it in other parts, but this is short in duration, more frequent. No abdominal tightening. She has good movement, no leaking, no vaginal bleeding. She denies hea dache, right upper quadrant pain, changes in vision. Past medical history Obesity class III Chronic hypertension, on labetalol 200 mg daily Asthma Insomnia Anxiety Migraines Past surgical history Previous section x2 Toe surgery Cholecystectomy Tonsillectomy Family history Mother: Ovarian cancer Father: Diabetes Maternal grandmother: Breast cancer Assessment and plan 31-year-old -0-1-2 at 30 weeks 5 days gestation with low back pain. Physical Exam Constitutional: alert, no acute distress, well hydrated, well developed, well nourished, appropriate dress. Skin: normal turgor, normal color. Head: atraumatic, normocephalic. Cardiovascular: RRR. Respiratory: no respiratory distress. Abdomen: nondistended, nontender. Spine: normal mobility. Neurologic: normal, sensation intact, motor intact. Psych: affect and mood appropriate, normal interaction, good eye contact. SVE: 0/0/-3 Greeter present for exam. NST: 145 beats per baseline, moderate variability, accelerations present, no decelerations. 1. Low back pain -Discussed managing with heating pad and Tylenol. Discussed that this does not appear to be labor. Cervix remained closed. No contractions on monitor. 2. Obesity class III -Patient being managed by Dr. Em at [facility]. -Due to BMI, patient planning on delivering in [place] 3. 30 weeks gestation -Follow-up with NURSING PROGRAM MANAGER provider 4. Decreased movement - movement felt once she arrived at triage. -Reactive NST
== END 2021-06-14 11:12 | disposition home or self-care (01) ==
LOC: WFO 09:18 → FBP 09:20 → WFO 11:12
PROVIDERS: ATTEND Obstetrics & Gynecology
DX: O99.891 Other specified diseases and conditions complicating pregnancy (principal); M54.50 Low back pain, unspecified; O36.8130 Decreased fetal movements, third trimester, not applicable or unspecified; O99.213 Obesity complicating pregnancy, third trimester; O34.219 Maternal care for unspecified type scar from previous cesarean delivery; Z3A.30 30 weeks gestation of pregnancy
CPT/HCPCS: 59025; 81001; 99213

== ENCOUNTER 2021-07-01 18:18 | Outpatient (CLI) | payer MEDICAID ==
--- NOTE | 2021-07-02 13:30 | Ultrasound Report ---
PROCEDURE: OB F/U or Repeat INDICATIONS: SIZE GREATER THEN DATES OUTSIDE/PRIOR DATING DATA: Last menstrual period (LMP): Unknown. LMP-based estimated date of delivery (JOSESITO): Unknown. First dating scan (date and location): 01/03/2021 [facility]. Estimated date of delivery (JOSESITO) from first dating scan: 08/21/2021. The below data below was generated using the ultrasound JOSESITO of 08/21/2021. TECHNIQUE: Real-time scanning was performed of the fetus, with image documentation and biometric measurements. COMPARISON: OB ultrasound 05/08/2021. FINDINGS: General: A single living intrauterine gestation is present. Presentation: Vertex Placenta: Placental position is posterior. Amniotic fluid index: 13.1 cm, normal for gestational age. Largest pocket 5.3 cm. heart rate: 140 beats per minute. Maternal cervical canal: 3.8 cm long; normal length is 2.5 cm or more. No funneling. biometrics: Biparietal diameter: 8.4 cm, 33 weeks 4 days Head circumference: 31.5 cm, 35 weeks 2 days Abdominal circumference: 20.8 cm, 32 weeks 6 days Femur length: 6.4 cm, 32 weeks 6 days Estimated gestational age from initial scan: 32 weeks 5 days Composite gestational age from present scan: 33 weeks 5 days Estimated weight and percentile: 2131 g, 54th percentile Measurement variability in biometric dating: +/- 10 days from 12-20 weeks gestation, +/- 2 weeks from 20-30 weeks gestation, +/- 3 weeks at 30 weeks gestation or more. Other: Not applicable. IMPRESSION: 1. Ritter living intrauterine at 33 weeks 5 days based on today's ultrasound. This is co ncordant with the prior ultrasound dating +/- 3 weeks. Fetus is in the 54th percentile for weight. 2. Normal amniotic fluid. Reviewed by: Demario Conti MD on 07/02/2021 1:29 PM PDT Approved by: Demario Conti MD on 07/02/2021 1:29 PM PDT Station ID: [id number]
== END 2021-07-01 18:19 | disposition home or self-care (01) ==
LOC: DI 18:18
PROVIDERS: ATTEND Obstetrics & Gynecology
DX: O26.843 Uterine size-date discrepancy, third trimester (principal); O10.919 Unspecified pre-existing hypertension complicating pregnancy, unspecified trimester; Z3A.33 33 weeks gestation of pregnancy

== ENCOUNTER 2021-08-19 23:15 | Outpatient (CLI) | payer MEDICAID | END 2021-08-19 23:16 | disposition critical access hospital (66) | LOC: EMS 23:15 | DX: O90.0 Disruption of cesarean delivery wound (principal) | CPT/HCPCS: A0425; A0429; A0999 ==

== ENCOUNTER 2021-08-19 23:35 | Inpatient (IN) | payer MEDICAID ==
[2021-08-20] MEDS ORDERED: LABETALOL 100 MG TABLET PO STA
--- OUTSIDE RECORDS SUMMARY | 2021-08-20 00:02 | EXTERNAL MEDICAL SUMMARY RPT | Continuity of Care Document ---
: Demographics Phone Unavailable Preferred Language Angolan Marital Status Restoration Affiliation NO Race Unknown Ethnic Group Unknown Author Organization [facility] Address [address] [phone] Phone Care Team Providers Name Role Phone Xin Quinn Martin Unavailable Unavailable Quinn Lauren Unavailable Unavailable Allergies No information. Encounters No information. Medications date description facility [id number] Hydralazine Hydrochloride 50 MG Oral [facility] [id number] Trazodone Hydrochloride 100 MG Oral Tab [facility] [id number] 0.5 ML Bordetella pertussis filamentous hemagglutinin [facility] vaccine, inactivated 0.01 MG/ML / Bordet corinne pertussis fimbriae 2/3 vaccine, inactivated 0.01 M G/ML / Bordetella pertussis pertactin vaccine, inactivated 0.006 MG/ML / Bordetella pertussis toxoi d vaccine, inactivated 0.005 MG/ML / diphtheria tox oid vaccine, inactivated 4 UNT/ML / tetanus toxoid va ccine, inactivated 10 UNT/ML Prefilled Syringe 20210613 Hydralazine Hydrochloride 25 MG Oral [facility] Problems date description facility [id number] Unspecified maternal hypertension, [facility] trimester [id number] Encounter for supervision of normal pre gnancy, [facility] unspecified, 20210716 Unspecified maternal hypertension, [facility] trimester 20210716 Encounter for supervision of other norm al , [facility] third t Procedures date description facility [id number] [facility] [id number] [facility] [id number] [facility] [id number] [facility] [id number] [facility] [id number] [facility] [id number] [facility] [id number] [facility] [id number] [facility] [id number] [facility] [id number] [facility] [id number] [facility] [id number] [facility] [id number] [facility] [id number] [facility] [id number] [facility] [id number] [facility] Results No information. Vital Signs date measurement value source [id number] weight_standard 171.91 lb [id number] weight_metric 77.98 kg 20210618 height_standard 65 in 20210618 height_metric 165.1 cm 20210618 BP_systolic 132 mm[Hg] 20210618 BP_diastolic 80 mm[Hg] 20210618 BMI 63.1 kg/m2 20210702 weight_standard 174.63 lb 20210702 weight_metric 79.21 kg 20210702 height_standard 65 in [id number] height_metric 165.1 cm 20210702 BP_systolic 138 mm[Hg] 20210702 BP_diastolic 84 mm[Hg] 20210702 BMI 64.0 kg/m2 20210716 weight_standard 178.26 lb 20210716 weight_metric 80.86 kg 20210716 height_standard 65 in 20210716 height_metric 165.1 cm 20210716 BP_systolic 132 mm[Hg] 20210716 BP_diastolic 78 mm[Hg] 20210716 BMI 65.4 kg/m2 20210723 weight_standard 177.81 lb 20210723 weight_metric 80.65 kg 20210723 height_standard 65 in 20210723 height_metric 165.1 cm 20210723 BP_systolic 134 mm[Hg] 20210723 BP_diastolic 86 mm[Hg] 20210723 BMI 65.2 kg/m2 20210730 weight_standard 181.44 lb 20210730 weight_metric 82.3 kg 20210730 height_standard 65 in 20210730 height_metric 165.1 cm 20210730 BP_systolic 132 mm[Hg] 20210730 BP_diastolic 84 mm[Hg] 20210730 BMI 66.5 kg/m2 20210806 weight_standard 180.08 lb 20210806 weight_metric 81.68 kg 20210806 height_standard 65 in 20210806 height_metric 165.1 cm 20210806 BP_systolic 148 mm[Hg] 20210806 BP_diastolic 84 mm[Hg] 20210806 BMI 66.0 kg/m2 20210818 weight_standard 179.62 lb 20210818 weight_metric 81.48 kg 20210818 temperature_standard 98.4 F 20210818 temperature_metric 36.89 C 20210818 respiration_rate 24 /min 20210818 height_standard 65 in 20210818 height_metric 165.1 cm 20210818 heart_rate 82 /min 20210818 BP_systolic 177 mm[Hg] 20210818 BP_diastolic 89 mm[Hg] 20210818 BMI 65.9 kg/m2
[2021-08-20 00:12] LABS: BASOPHILS % (AUTO) 0.3 %; EOSINOPHILS # (AUTO) 0.3 10^3/uL (0.0-0.7); EOSINOPHILS % (AUTO) 3.9 %; HCT - HEMATOCRIT 32.9 % (37.0-47.0); HGB - HEMOGLOBIN 10.5 g/dL (12.0-16.0); LYMPHOCYTES # (AUTO) 1.9 10^3/uL (1.5-3.5); MEAN CORPUSCULAR HEMOGLOBIN 29.6 pg (27.0-31.0); MEAN CORPUSCULAR HGB CONC 31.9 g/dL (32.0-36.0); MEAN CORPUSCULAR VOLUME 92.7 fL (81.0-99.0); MEAN PLATELET VOLUME 9.1 fL (7.9-10.8); MONOCYTES # (AUTO) 0.8 10^3/uL (0.0-1.0); MONOCYTES % (AUTO) 9.8 %; NEUTROPHILS # (AUTO) 4.8 10^3/uL (1.5-6.6); NEUTROPHILS % (AUTO) 61.6 %; PLT - PLATELET COUNT 251 10^3/uL (130-450); RED BLOOD COUNT 3.55 10^6/uL (4.20-5.40); RED CELL DISTRIBUTION WIDTH 13.2 % (12.0-15.0); WHITE BLOOD COUNT 7.7 x10^3/uL (4.8-10.8)
[2021-08-20 00:23] LABS: ALBUMIN 2.8 g/dL (3.2-5.5); ALBUMIN/GLOBULIN RATIO 0.8 (1.0-2.2); BILIRUBIN,TOTAL 0.2 mg/dL (0.2-1.0); CALCIUM 8.9 mg/dL (8.5-10.3); CREATININE 0.7 mg/dL (0.4-1.0); POTASSIUM 3.8 mmol/L (3.5-5.0); TOTAL PROTEIN 6.2 g/dL (6.7-8.2)
[2021-08-20] MEDS ORDERED: NIFEdipine 10 MG CAPSULE PO STA (00:51)
[2021-08-20] MEDS ORDERED: MAGNESIUM SULFATE 4 GRAM 4 GM/50 ML BAG IV ONE (00:52)
--- NOTE | 2021-08-20 00:56 | ED Physician Documentation ---
History of Present Illness - Stated complaint Stated Complaint: STICHES BLEEDING - Chief complaint Chief Complaint: Wound - History obtained from History obtained from: Patient - Additonal information Additional information: Patient is a 31-year-old female presenting for evaluation of concerns of bleed ing from incision. Patient had a scheduled on August 14 at 39 weeks due to gestational hypertension. She was started on p.o. antihypertensives. She was discharged on p.o. antihypertensives. She was seen yesterday at [facility] [place] due to concerns for redness around her incision. She was also then evaluated in labor and delivery due to having elevated blood pressure readings. Per patient, her labs have been negative for preeclampsia. She was not kept overnight. Patient does not have a blood pressure cuff. She is taking labetalol twice a day and has hydralazine but is unsure of how often she is to take the hydralazine or when she should take it so she has not been using it. This evening she was in the bathroom when she felt a gush of blood on the floor. There were no clots. She denies abdominal pain, vomiting or diarrhea. No fevers. She is breast-feeding.Patient denies headache, visual disturbances, right upper quadrant pain. She continues to have leg swelling postoperatively. Review of Systems Constitutional: denies: Fever Nose: denies: Congestion Cardiac: denies: Chest pain / pressure, Palpitations Respiratory: denies: Dyspnea, Cough GI: denies: Abdominal Pain, Vomiting, Diarrhea : reports: Vaginal bleeding. denies: Dysuria Skin: reports: Rash Musculoskeletal: reports: Extremity swelling. 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: Miscarriage(s) : None HEENT: None Psych: Depression, Anxiety, Panic attacks, ADD/ADHD Musculoskeletal: Chronic back pain Derm: None - Past Surgical History Past Surgical History: Yes General: Cholecystectomy /SHEET METAL FABRICATOR: section, Other HEENT: Tonsil/Adenoidectomy - Present Medications Home Medications: Ambulatory Orders Medication Instructions Recorded Confirmed Albuterol Sulf [Ventolin Hfa 1 - 2 puffs INH Q4HR PRN #1 inhaler 05/01/18 03/30/21 Inhaler] Ondansetron Odt [Zofran] 4 mg TL Q6H PRN #10 tablet 07/08/20 03/30/21 Albuterol Sulf [Ventolin Hfa 3 - 4 puffs INH Q4HR PRN #1 inhaler 03/30/21 Inhaler] Amoxicillin 500 mg PO TID #15 cap 03/30/21 Benzonatate [Tessalon] 100 mg PO TID PRN #20 cap 03/30/21 Butalbital/Acetaminophen 1 each PO Q4H PRN 03/30/21 03/30/21 [Acetaminophn-Butalbital 325-50] Cetirizine [ZyrTEC] 10 mg PO BID #15 tablet 03/30/21 Labetalol [Trandate] 100 mg PO BID 03/30/21 03/30/21 Pnv No.95/Ferrous Fum/Folic AC 1 each PO DAILY 03/30/21 03/30/21 [ Caplet] dexAMETHasone [Decadron] 4 mg PO DAILY #5 tablet 03/30/21 hydrOXYzine HCL [Hydroxyzine HCl] 50 mg PO BID PRN 03/30/21 03/30/21 Labetalol [Trandate] 200 mg PO DAILY 08/20/21 08/20/21 - Allergies Allergies/Adverse Reactions: Allergies Allergy/AdvReac Type Severity Reaction Status Date / Time hydrocodone [From Vicodin] AdvReac Headache Verified 08/19/21 23:42 - Social History Does the pt smoke?: No Smoking Status: Never smoker Does the pt drink ETOH?: No Does the pt have substance abuse?: No - Immunizations Immunizations are current?: Yes Immunizations: TDAP >10years/unknown - POLST Patient has POLST: No PD ED PE NORMAL - General General: Alert and oriented X 3, No acute distress, Well developed/nourished - HEENT HEENT: Atraumatic, Pharynx benign - Neck Neck: Supple, no meningeal sign - Cardiac Cardiac: RRR, No murmur, Strong equal pulses - Respiratory Respiratory: No respiratory distress, Clear bilaterally - Abdomen Abdomen: Normal bowel sounds, Soft, Non tender, Non distended, Other (Well- healing abdominal incision, faint area of erythema in skin folds consistent with yeast infection) - Derm Derm: Normal color - Extremities Extremities: Other. No: No edema, No calf tenderness / cord (Bilateral lower extremity edema) - Neuro Neuro: No motor deficit, Normal speech - Psych Psych: Normal mood PD ED PE EXPANDED - Abdomen Abdomen Visual: 1 - rash Results - Vitals Vitals: Vital Signs - 24 hr 08/19/21 08/20/21 08/20/21 23:42 00:17 00:46 Temperature 37.0 C Heart Rate 77 75 69 Respiratory 20 23 24 Rate Blood Pressure 183/89 H 158/82 H 172/92 H O2 Saturation 97 97 98 08/20/21 01:25 Temperature Heart Rate 83 Respiratory 21 Rate Blood Pressure 175/100 H O2 Saturation 96 Oxygen O2 Source Room air - Labs Labs: Laboratory Tests 08/19/21 08/19/21 08/20/21 00:04 00:04 01:00 WBC 7.7 RBC 3.55 L Hgb 10.5 L Hct 32.9 L MCV 92.7 MCH 29.6 MCHC 31.9 L RDW 13.2 Plt Count 251 MPV 9.1 Neut # (Auto) 4.8 Lymph # (Auto) 1.9 [place] # (Auto) 0.8 Eos # (Auto) 0.3 Baso # (Auto) 0.0 Absolute Nucleated RBC 0.00 Nucleated RBC % 0.0 Sodium 139 Potassium 3.8 Chloride 105 Carbon Dioxide 22 Anion Gap 12.0 BUN 18 Creatinine 0.7 Estimated GFR (MDRD) 96 Glucose 109 H Calcium 8.9 Total Bilirubin 0.2 AST 21 ALT 27 Alkaline Phosphatase 85 Total Protein 6.2 L Albumin 2.8 L Globulin 3.4 Albumin/Globulin Ratio 0.8 L SARS-CoV-2 (PCR) NOT DETECTED PD MEDICAL DECISION MAKING - ED course ED course: Patient presenting for evaluation of concerns of bleeding from her abdominal incision. On exam her abdominal vargas is well-appearing with no signs of infection or bleeding. Suspect the bleeding was actually vaginal bleeding. However patient has significantly elevated blood pressure readings on exam. No symptoms such as headache, visual disturbances or right upper quadrant pain. CBC and chemistry without significant abnormalities. Patient did receive evening dose of labetalol. Continues to have elevated blood pressure readings in the severe range. Consulted with OB who agrees with admission and magnesium drip. 1256 - D/W OB - Recommends nifedipine PO 10mg now as BP has increased and agrees with plan for admission and magnesium IV - Critical Care Time(min): 31 Departure - Departure Disposition: ED Place in Observation Clinical Impression: Pre-eclampsia, Condition: Stable Discharge Date/Time: 08/20/21 02:09
--- NOTE | 2021-08-20 01:49 | HISTORY & PHYSICAL EXAMINATION ---
Admit History - Visit Reason Visit Reason: Other ( preeclampsia) - : 3 Parity: 3 Risk/History: positive: Other (Gestational hypertension, obesity) Smoking Status: Never smoker - Other Maternal History Other Maternal History: Chief complaint: vaginal bleeding HPI. This is a 31-year-old who presented to the emergency department after calling EMS for vaginal bleeding. The patient patient reports that she noticed a sudden gush of vaginal bleeding. She reports she has had minimal bleeding since her delivery on August 14 at [facility]. She was delivered at 39 weeks via scheduled repeat section. Her was reportedly complicated by hypertension which the patient states that she developed later in . She reports receiving magnesium sulfate as well as p.o. antihypertensives on discharge. Since discharge she has not been able to check her blood pressures at home. She is unsure sure about her medications but reports that she is taking labetalol and hydralazine as needed. She denies headaches vision changes or abdominal pain. She denies chest pain or shortness of breath. Past medical historydenies Past surgical history x2, cholecystectomy Medications Zoloft? labetalol hydralazine AllergiesVicodin Vitals- Temp Pulse Resp BP Pulse Ox 98.6 F 83 21 175/100 H 96 08/19/21 23:42 08/20/21 01:25 08/20/21 01:25 08/20/21 01:25 08/20/21 01:25 Physical exam Generalanxious Headatraumatic traumatic HeartRegular rate and rhythm Lungs clear to auscultation bilaterally. Abdomensoft bloated there obese Lower extremities2+ right-sided pitting edema at the foot, left side with 1+ edema mild tenderness noted. Negative Homans' sign on exam. Assessment and plan 31-year-old day 6 status post repeat section admitted for preeclampsia preeclampsiabased on severe range blood pressures requiring p.o. antihypertensives. Patient given 10 mg of p.o. nifedipine with improvement noted in blood pressure. Will admit for magnesium sulfate for seizure prophylaxis. labs wnl thus far. Lower Extremity edema- Right greater than left. DVT prophylaxis ordered. Lower extremity Dopplers ordered. Meds/Allgy - Home Medications Home Medications: Ambulatory Orders Medication Instructions Recorded Confirmed Albuterol Sulf [Ventolin Hfa 1 - 2 puffs INH Q4HR PRN #1 inhaler 05/01/18 03/30/21 Inhaler] Ondansetron Odt [Zofran] 4 mg TL Q6H PRN #10 tablet 07/08/20 03/30/21 Albuterol Sulf [Ventolin Hfa 3 - 4 puffs INH Q4HR PRN #1 inhaler 03/30/21 Inhaler] Amoxicillin 500 mg PO TID #15 cap 03/30/21 Benzonatate [Tessalon] 100 mg PO TID PRN #20 cap 03/30/21 Butalbital/Acetaminophen 1 each PO Q4H PRN 03/30/21 03/30/21 [Acetaminophn-Butalbital 325-50] Cetirizine [ZyrTEC] 10 mg PO BID #15 tablet 03/30/21 Labetalol [Trandate] 100 mg PO BID 03/30/21 03/30/21 Pnv No.95/Ferrous Fum/Folic AC 1 each PO DAILY 03/30/21 03/30/21 [ Caplet] dexAMETHasone [Decadron] 4 mg PO DAILY #5 tablet 03/30/21 hydrOXYzine HCL [Hydroxyzine HCl] 50 mg PO BID PRN 03/30/21 03/30/21 Labetalol [Trandate] 200 mg PO DAILY 08/20/21 08/20/21 - Allergies Allergies/Adverse Reactions: Allergies Allergy/AdvReac Type Severity Reaction Status Date / Time hydrocodone [From Vicodin] AdvReac Headache Verified 08/19/21 23:42 Physical - Abdominal Exam Vital Signs: Temp Pulse Resp BP Pulse Ox 98.6 F 83 21 175/100 H 96 08/19/21 23:42 08/20/21 01:25 08/20/21 01:25 08/20/21 01:25 08/20/21 01:25
[2021-08-20] MEDS ORDERED: NIFEdipine 10 MG CAPSULE PO PRN (01:53)
[2021-08-20] MEDS ORDERED: hydrALAZINE INJ 20 MG/ML VIAL IVP PRN ×2 (01:53)
[2021-08-20] MEDS ORDERED: LABETALOL 20 MG/4 ML SYRINGE IVP PRN ×3 (01:53)
[2021-08-20] MEDS ORDERED: NALOXONE 0.4 MG/ML VIAL IVP PRN (01:53)
[2021-08-20] MEDS ORDERED: ENOXAPARIN 40 MG/0.4 ML SYRINGE SUBQ SCH ×2 (01:58→13:37)
[2021-08-20] MEDS ORDERED: LACTATED RINGERS 1,000 ML IV SCH ×2 (02:00→02:10)
[2021-08-20] MEDS: ACETAMINOPHEN 500 MG TABLET PO SCH ×2 (02:47→11:18)
[2021-08-20] MEDS: oxyCODONE 5 MG TABLET PO PRN ×5 (02:48→21:22)
[2021-08-20] MEDS: MAGNESIUM SULFATE IN WATER 20 GM/500 ML IV.SOLN IV SCH ×2 (02:56→13:26)
[2021-08-20] MEDS: NYSTATIN CREAM 15 GM TUBE TOP PRN ×3 (05:22→22:00)
--- NOTE | 2021-08-20 08:32 | Ultrasound Report ---
PROCEDURE: Duplex Ext Veins Bilateral INDICATIONS: TOCHI AMAGWULA TECHNIQUE: Real-time imaging, as well as color and pulse Doppler interrogation, were performed of the deep veins of both legs from the inguinal ligament to the popliteal fossa. COMPARISON: None FINDINGS: The deep veins are normally compressible, and free of intraluminal thrombus. Color and pu lse Doppler demonstrate normal phasic intravascular flow. There is normal augmentation response to d istal compression maneuver. IMPRESSION: No DVT in either lower extremity. Reviewed by: Hermelinda Leal MD on 08/20/2021 8:31 AM PDT Approved by: Hermelinda Leal MD on 08/20/2021 8:31 AM PDT Station ID: [id number]
[2021-08-20] MEDS: DOCUSATE SODIUM 100 MG CAPSULE PO SCH ×2 (11:17→21:23)
[2021-08-20] MEDS: NIFEdipine ER 30 MG TABLET PO SCH (13:26)
--- NOTE | 2021-08-20 14:29 | PROVIDER PROGRESS NOTE ---
Subjective - Prog Note Date Prog Note Date: 08/20/21 Prog Note Time: 14:27 - Subjective Pt reports feeling: Improved Subjective: Patient has no complaints. She reports feeling much better this AM. She remains on magnesium sulfate for seizure prophylaxis. She denies headaches vision changes or abdominal pain. Current Medications - Current Medications Current Medications: Active Medications Generic Name Dose Route Start Last Admin Trade Name Freq PRN Reason Stop Dose Admin Acetaminophen 1,000 mg 08/20/21 02:00 08/20/21 11:18 Acetaminophen 500 Mg Tablet PO 1,000 mg Q8H WARREN Administration Docusate Sodium 200 mg 08/20/21 09:00 08/20/21 11:17 Docusate Sodium 100 Mg Capsule PO 200 mg BID WARREN Administration Enoxaparin Sodium 40 mg 08/20/21 13:37 Enoxaparin 40 Mg/0.4 Ml Syringe SUBQ QPM WARREN Hydralazine HCl 5 - 20 mg 08/20/21 01:53 Hydralazine Inj 20 Mg/Ml Vial IVP Q20M PRN SBP> or= 160 OR DBP> or= 110 Protocol Hydralazine HCl 10 mg 08/20/21 01:53 Hydralazine Inj 20 Mg/Ml Vial IVP .ONCE PRN SBP> or= 160 OR DBP> or= 110 Protocol Magnesium Sulfate 20 gm in 500 mls @ 50 mls/hr 08/20/21 01:00 08/20/21 13:26 Magnesium Sulf 20 G/500 Ml Bag IV 2 gm/hr .Q10H WARREN 50 mls/hr Administration 2 GM/HR Lactated Ringer's 1,000 mls @ 100 mls/hr 08/20/21 02:00 Lr IV .Q10H WARREN Lactated Ringer's 1,000 mls @ 0 mls/hr 08/20/21 02:10 08/20/21 02:56 Lr IV 30 mls/hr .Q0M WARREN Administration TKO Labetalol HCl 20 - 80 mg 08/20/21 01:53 Labetalol 20 Mg/4 Ml Syringe IVP Q10M PRN SBP> or= 160 OR DBP> or= 110 Protocol Labetalol HCl 20 - 40 mg 08/20/21 01:53 Labetalol 20 Mg/4 Ml Syringe IVP Q10M PRN SBP> or= 160 OR DBP> or= 110 Protocol Labetalol HCl 20 mg 08/20/21 01:53 Labetalol 20 Mg/4 Ml Syringe IVP .ONCE PRN SBP> or= 160 OR DBP> or= 110 Protocol Naloxone HCl 0.4 mg 08/20/21 01:53 Naloxone 0.4 Mg/Ml Vial IVP .ONCE PRN Opioid overdose Nifedipine 10 - 20 mg 08/20/21 01:53 Nifedipine 10 Mg Capsule PO Q20M PRN SBP> or= 160 OR DBP> or= 110 Protocol Nifedipine 30 mg 08/20/21 13:00 08/20/21 13:26 Nifedipine Er 30 Mg Tablet PO 30 mg DAILY WARREN Administration Nystatin 1 applic 08/20/21 02:07 08/20/21 05:22 Nystatin Cream 15 Gm Tube TOP 1 applic TID PRN Administration Agitation Oxycodone HCl 5 mg 08/20/21 01:53 08/20/21 11:18 Oxycodone 5 Mg Tablet PO 5 mg Q4HR PRN Administration Severe Pain 6 -10 Butalbital/Acetaminophen [Acetaminophn-Butalbital 325-50] 1 each PO Q4H PRN 03/30/21 Labetalol [Trandate] 100 mg PO BID 03/30/21 Pnv No.95/Ferrous Fum/Folic AC [ Caplet] 1 each PO DAILY 03/30/21 hydrOXYzine HCL [Hydroxyzine HCl] 50 mg PO BID PRN 03/30/21 Labetalol [Trandate] 200 mg PO DAILY 08/20/21 Objective - Vital Signs/Intake & Output Vital Signs: Vital Signs x48h Temp Pulse Resp BP Pulse Ox 08/20/21 14:00 71 18 148/80 H 97 08/20/21 13:00 97.7 F 68 18 156/85 H 98 08/20/21 11:00 97.7 F 81 18 141/74 H 97 08/20/21 10:00 68 16 131/69 H 99 08/20/21 09:00 65 16 132/68 H 98 08/20/21 07:59 97.7 F 70 18 116/60 100 08/20/21 06:57 72 20 136/80 H 98 Intake & Output: Intake & Output 05/07/22 05/08/22 05/09/22 05/10/22 23:59 23:59 23:59 23:59 Intake Total 2340 Output Total 1600 Balance 740 - Objective General Appearance: positive: No acute distress Respiratory: positive: No respiratory distress Abdomen: positive: Non-tender Extremities: positive: Pedal edema. negative: Calf tenderness, Clement's sign/cords (1+ bilaterally) - Lab Results Fish Bones: 08/19/21 00:04 08/19/21 00:04 Other Labs: Lab Results x24hrs 08/20/21 08/19/21 08/19/21 Range/Units 01:00 00:04 00:04 WBC 7.7 (4.8-10.8) x10^3/uL RBC 3.55 L (4.20-5.40) 10^6/uL Hgb 10.5 L (12.0-16.0) g/dL Hct 32.9 L (37.0-47.0) % MCV 92.7 (81.0-99.0) fL MCH 29.6 (27.0-31.0) pg MCHC 31.9 L (32.0-36.0) g/dL RDW 13.2 (12.0-15.0) % Plt Count 251 (130-450) 10^3/uL MPV 9.1 (7.9-10.8) fL Neut # (Auto) 4.8 (1.5-6.6) 10^3/uL Lymph # (Auto) 1.9 (1.5-3.5) 10^3/uL [place] # (Auto) 0.8 (0.0-1.0) 10^3/uL Eos # (Auto) 0.3 (0.0-0.7) 10^3/uL Baso # (Auto) 0.0 (0.0-0.1) 10^3/uL Absolute Nucleated RBC 0.00 x10^3/uL Nucleated RBC % 0.0 /100WBC Sodium 139 (135-145) mmol/L Potassium 3.8 (3.5-5.0) mmol/L Chloride 105 (101-111) mmol/L Carbon Dioxide 22 (21-32) mmol/L Anion Gap 12.0 (6-13) BUN 18 (6-20) mg/dL Creatinine 0.7 (0.4-1.0) mg/dL Estimated GFR (MDRD) 96 (>89) Glucose 109 H (70-100) mg/dL Calcium 8.9 (8.5-10.3) mg/dL Total Bilirubin 0.2 (0.2-1.0) mg/dL AST 21 (10-42) IU/L ALT 27 (10-60) IU/L Alkaline Phosphatase 85 (42-121) IU/L Total Protein 6.2 L (6.7-8.2) g/dL Albumin 2.8 L (3.2-5.5) g/dL Globulin 3.4 (2.1-4.2) g/dL Albumin/Globulin Ratio 0.8 L (1.0-2.2) SARS-CoV-2 (PCR) NOT DETECTED - Diagnostic Imaging Diagnostic Imaging Comments: lower extremity dopplers negative Assessment/Plan - Problem List (1) Pre-eclampsia, Impression: 31-year-old day 6 status post repeat section admitted for preeclampsia with severe features. - preeclampsiabased on severe range and blood pressures requiring antihypertensiveson magnesium sulfate for seizure prophylaxis. Nifedipine 30 mg daily started this AM. Urine output adequate. We will continue to monitor.Outside hospital records requested. -Lower extremity edemaimproved. Dopplers negative for DVT. On DVT prophylaxis.
[2021-08-20] MEDS ORDERED: ACETAMINOPHEN 500 MG TABLET PO PRN (14:30)
[2021-08-20] MEDS: SERTRALINE 50 MG TABLET PO SCH (18:49)
[2021-08-20] MEDS ORDERED: ZOLPIDEM 5 MG TABLET PO PRN (21:10)
[2021-08-20] MEDS: BUTALB/ACETAM/CAFF 50/325/40MG TABLET PO PRN (21:23)
[2021-08-21] MEDS: oxyCODONE 5 MG TABLET PO PRN ×3 (02:42→14:48)
[2021-08-21] MEDS: BUTALB/ACETAM/CAFF 50/325/40MG TABLET PO PRN (04:03)
[2021-08-21] MEDS: SERTRALINE 50 MG TABLET PO SCH (08:31)
[2021-08-21] MEDS: DOCUSATE SODIUM 100 MG CAPSULE PO SCH (08:31)
[2021-08-21] MEDS: NIFEdipine ER 30 MG TABLET PO SCH (11:20)
[2021-08-21] MEDS: NYSTATIN CREAM 15 GM TUBE TOP PRN (11:20)
--- NOTE | 2021-08-21 11:56 | Discharge Plan ---
Discharge Plan Problem Reviewed?: Yes Disposition: Home, Self Care Condition: Stable Prescriptions: NIFEdipine [Procardia Xl] 30 mg PO DAILY #30 tablet Diet: Regular Activity Restrictions: No Restrictions Shower Restrictions: No Driving Restrictions: No Additional Instructions or Follow Up instructions: Return to ED for persistent headache, vision changes, abdominal pain or elevated blood pressures. Return to ED for systolic blood pressures of 160 or greater or diastolic blood pressure of 110 or greater. No Smoking: If you smoke, Please STOP! Call for help. Follow-up with: ABISAI LLOYD MD [Primary Care Provider] - Fabian Álvarez MD [Provider Admit Priv/Credential] - 1-2 Days
--- NOTE | 2021-08-21 12:13 | DISCHARGE SUMMARY ---
"Discharge Summary Admit Date: 08/21/21 Discharge Date: 08/21/21 Condition at Discharge: Stable Discharge Disposition: 01 Home, Self Care - DIAGNOSES Admission Diagnoses: preeclampsia Discharge Diagnoses with Status of Each Condition: preeclampsia - HOSPITAL COURSE Hospital Course: 31-year-old G3, P3 day 7 status post repeat section. The patient presented with elevated blood pressures after reporting vaginal bleeding. Her vaginal bleeding resolved spontaneously. She was noted to have severe range blood pressures requiring antihypertensives. She was admitted for preeclampsia. She received magnesium sulfate for seizure prophylaxis. Her blood pressures improved to normal to mild range. She was started on p.o. nifedipine. Her labs were within normal limits. The patient also reported leg swelling and bilateral feet pain. Doppler of the lower extremities were negative for DVT. Following magnesium sulfate infusion the patient was monitored and blood pressures improved. She was stable for disc harge with recommendations to continue nifedipine and to resume labetalol. She was encouraged to follow-up in 48 hours with her OB for blood pressure check. She was also given preeclampsia warnings and instructed to return to the emergency department for persistent headaches, abdominal pain or vision changes. Prior to discharge the patient reported serosanguineous drainage from the wound. The wound was evaluated and no evidence of infection noted. Minimal serosangenous bleeding was noted. The wound appeared well-healing. Wound care evaluated the wound and did not find any for additional management. The patient was instructed to monitor for evidence of infection and to report any bright red blood from the incision. - ALLERGIES Allergies/Adverse Reactions: Allergies Allergy/AdvReac Type Severity Reaction Status Date / Time hydrocodone [From Vicodin] AdvReac Headache Verified 08/19/21 23:42 - MEDICATIONS Home Medications: Ambulatory Orders Medication Instructions Recorded Confirmed Albuterol Sulf [Ventolin Hfa 1 - 2 puffs INH Q4HR PRN #1 inhaler 05/01/18 03/30/21 Inhaler] Albuterol Sulf [Ventolin Hfa 3 - 4 puffs INH Q4HR PRN #1 inhaler 03/30/21 Inhaler] Pnv No.95/Ferrous Fum/Folic AC 1 each PO DAILY 03/30/21 03/30/21 [ Caplet] Breast Pump 1 each MC 1-2XD 30 Days #1 each 08/21/21 NIFEdipine [Procardia Xl] 30 mg PO DAILY #30 tablet 08/21/21 Home Medications Other | Comments: labetalol 200mg PO BID - PHYSICAL EXAM AT DISCHARGE General Appearance: positive: No acute distress Respiratory: positive: No respiratory distress Cardiovascular: positive: Regular rate & rhythm Abdomen: positive: Non-tender, Other (incision well healing ). negative: No distention, Tenderness Extremities: positive: Pedal edema (1+ ) - LABS Result Diagrams: 08/19/21 00:04 08/19/21 00:04"
[2021-08-21] MEDS ORDERED: LABETALOL 100 MG TABLET PO ONE (18:00)
[2021-08-21 19:15] VITALS: BP 150/66
== END 2021-08-21 19:30 | disposition home or self-care (01) | DRG 776 ==
LOC: EDUNIT# → ED 23:35 → SUPCPDRO 23:35 → FBP 08-20 01:49 → OBSVTOIN 08-20 02:10
PROVIDERS: ADMIT Obstetrics & Gynecology; ATTEND Obstetrics & Gynecology
DX: O14.15 Severe pre-eclampsia, complicating the puerperium (principal); O72.1 Other immediate postpartum hemorrhage; O12.05 Gestational edema, complicating the puerperium; O99.215 Obesity complicating the puerperium; Z20.822 Contact with and (suspected) exposure to COVID-19
CPT/HCPCS: 36415; 80053; 85025; 87635; 93970; 99285; 99291; A9270; J1650; J7120; J3475

== ENCOUNTER 2021-09-02 11:25 | Outpatient (CLI) | payer MEDICAID ==
[2021-09-02 17:41] LABS: BASOPHILS % (AUTO) 0.3 %; EOSINOPHILS # (AUTO) 0.3 10^3/uL (0.0-0.7); EOSINOPHILS % (AUTO) 4.2 %; HCT - HEMATOCRIT 37.5 % (37.0-47.0); HGB - HEMOGLOBIN 11.5 g/dL (12.0-16.0); LYMPHOCYTES # (AUTO) 1.9 10^3/uL (1.5-3.5); LYMPHOCYTES % (AUTO) 25.1 %; MEAN CORPUSCULAR HEMOGLOBIN 28.3 pg (27.0-31.0); MEAN CORPUSCULAR HGB CONC 30.7 g/dL (32.0-36.0); MEAN CORPUSCULAR VOLUME 92.4 fL (81.0-99.0); MEAN PLATELET VOLUME 9.4 fL (7.9-10.8); MONOCYTES # (AUTO) 0.7 10^3/uL (0.0-1.0); MONOCYTES % (AUTO) 9.1 %; NEUTROPHILS # (AUTO) 4.6 10^3/uL (1.5-6.6); PLT - PLATELET COUNT 377 10^3/uL (130-450); RED BLOOD COUNT 4.06 10^6/uL (4.20-5.40); RED CELL DISTRIBUTION WIDTH 12.7 % (12.0-15.0); WHITE BLOOD COUNT 7.6 x10^3/uL (4.8-10.8)
[2021-09-02 17:51] LABS: ALBUMIN 3.5 g/dL (3.2-5.5); ALBUMIN/GLOBULIN RATIO 0.9 (1.0-2.2); BILIRUBIN,TOTAL 0.3 mg/dL (0.2-1.0); CALCIUM 9.3 mg/dL (8.5-10.3); CREATININE 0.8 mg/dL (0.4-1.0); POTASSIUM 4.2 mmol/L (3.5-5.0); TOTAL PROTEIN 7.2 g/dL (6.7-8.2)
== END 2021-09-02 11:26 | disposition home or self-care (01) ==
LOC: LAB.N 11:25
PROVIDERS: ATTEND Nurse Practitioner
DX: L03.311 Cellulitis of abdominal wall (principal)
CPT/HCPCS: 36415; 80053; 85025

== ENCOUNTER 2022-03-10 18:08 | Outpatient (CLI) | payer MEDICAID ==
--- NOTE | 2022-03-11 13:18 | Ultrasound Report ---
PROCEDURE: Pelvic w/Transvaginal INDICATIONS: OVARIAN CYST TECHNIQUE: Real-time scanning was performed of the pelvic organs, with image documentation. Additional endovagi nal scanning was necessary due to incomplete visualization of the adnexal and endometrial structures by transabdominal scanning. COMPARISON: CT abdomen pelvis 02/21/2022 FINDINGS: Suboptimal, limited exam secondary to patient body habitus and condition. Patient is unabl e to tolerate transvaginal exam due to recent surgeries. Uterus: Uterus is vertically oriented and mildly enlarged at 13.9 x 4.3 x 6.0 cm. The myometrium is grossly within normal limits.. The endometrium measures approximately 12 mm in combined thickness. This was only measured by transabdominal imaging. The cervix remains slightly open containing simple fluid. Ovaries: The right ovary measures approximately 5.0 x 3.7 x 5.0 cm, with a calculated ovarian volume of 49 cc. The left ovary measures approximately 2.7 x 2.6 x 2.5 cm, with a calculated ovarian volum e of 9.6 cc. There is a dominant cyst in the right ovary measuring about 4.2 cm, similar compared to CT scan. No suspicious vascular flow.. No adnexal masses are seen. Other: No pathologic free abdominal or pelvic fluid. IMPRESSION: 1. Suboptimal exam quality secondary to patient's difficulty tolerating transvaginal portion of the e xam due to recent surgeries. Excellent 2. Approximately 4.2 cm right ovarian cyst, less well seen compared to the prior CT scan. Statistical ly, this is most likely a benign dominant follicle. Follow-up imaging in 3-4 months is recommended to document resolution or stability. Reviewed by: Hermelinda Leal MD on 03/11/2022 1:17 PM PST Approved by: Hermelinda Leal MD on 03/11/2022 1:17 PM PST Station ID: [id number]
== END 2022-03-10 18:09 | disposition home or self-care (01) ==
LOC: DI 18:08
PROVIDERS: ATTEND Nurse Practitioner
DX: N83.201 Unspecified ovarian cyst, right side (principal)

== ENCOUNTER 2022-04-29 08:00 | Outpatient (CLI) | payer MEDICAID ==
[2022-04-29 22:19] LABS: BACTERIAL VAGINOSIS DNA POSITIVE (NEGATIVE); CANDIDA GLABRATA DNA NEGATIVE (NEGATIVE); CANDIDA GROUP DNA NEGATIVE (NEGATIVE); CANDIDA KRUSEI DNA NEGATIVE (NEGATIVE); TRICHOMONAS VAGINALIS DNA NEGATIVE (NEGATIVE)
== END 2022-04-29 23:59 | disposition home or self-care (01) ==
LOC: LAB.N 08:00
PROVIDERS: ATTEND Nurse Practitioner
DX: N94.9 Unspecified condition associated with female genital organs and menstrual cycle (principal); R30.0 Dysuria
CPT/HCPCS: 81514; 87086; 87181

== ENCOUNTER 2022-05-21 14:40 | Outpatient (CLI) | payer MEDICAID ==
[2022-05-21 15:04] LABS: BASOPHILS % (AUTO) 0.2 %; EOSINOPHILS # (AUTO) 0.2 10^3/uL (0.0-0.7); EOSINOPHILS % (AUTO) 1.6 %; HCT - HEMATOCRIT 41.4 % (37.0-47.0); HGB - HEMOGLOBIN 13.1 g/dL (12.0-16.0); LYMPHOCYTES # (AUTO) 2.8 10^3/uL (1.5-3.5); LYMPHOCYTES % (AUTO) 26.9 %; MEAN CORPUSCULAR HGB CONC 31.6 g/dL (32.0-36.0); MEAN CORPUSCULAR VOLUME 88.5 fL (81.0-99.0); MEAN PLATELET VOLUME 9.6 fL (7.9-10.8); MONOCYTES # (AUTO) 0.6 10^3/uL (0.0-1.0); NEUTROPHILS # (AUTO) 6.7 10^3/uL (1.5-6.6); NEUTROPHILS % (AUTO) 65.1 %; PLT - PLATELET COUNT 334 10^3/uL (130-450); RED BLOOD COUNT 4.68 10^6/uL (4.20-5.40); RED CELL DISTRIBUTION WIDTH 14.4 % (12.0-15.0); WHITE BLOOD COUNT 10.3 x10^3/uL (4.8-10.8)
[2022-05-21 15:05] LABS: BILIRUBIN,URINE NEGATIVE (NEGATIVE); GLUCOSE, URINE (UA) NEGATIVE (NEGATIVE); KETONES,URINE (UA) NEGATIVE (NEGATIVE); LEUKOCYTE ESTERASE, URINE NEGATIVE (NEGATIVE); NITRITE,URINE NEGATIVE (NEGATIVE); OCCULT BLOOD,URINE MODERATE (NEGATIVE); PROTEIN,URINE NEGATIVE (NEGATIVE); UROBILINOGEN,URINE 0.2 (NORMAL) E.U./dL (NORMAL)
[2022-05-21 15:07] LABS: CLARITY,URINE CLEAR (CLEAR)
[2022-05-21 15:23] LABS: BACTERIA,URINE Rare /HPF (None Seen); SQUAMOUS EPITHELIAL CELL,UR RARE Squamous (<= Few); WBC,URINE 0-3 /HPF (0-5)
[2022-05-21 15:43] LABS: ALBUMIN 3.8 g/dL (3.2-5.5); ALBUMIN/GLOBULIN RATIO 1.1 (1.0-2.2); BILIRUBIN,TOTAL 0.3 mg/dL (0.2-1.0); CALCIUM 9.8 mg/dL (8.5-10.3); CREATININE 0.9 mg/dL (0.4-1.0); CRP - C-REACTIVE PROTEIN 1.6 mg/dL (0-1.0); POTASSIUM 3.8 mmol/L (3.5-5.0); TOTAL PROTEIN 7.4 g/dL (6.7-8.2)
== END 2022-05-21 14:41 | disposition home or self-care (01) ==
LOC: LAB 14:40
PROVIDERS: ATTEND Nurse Practitioner
DX: R10.31 Right lower quadrant pain (principal); R10.2 Pelvic and perineal pain
CPT/HCPCS: 36415; 80053; 81001; 82150; 83690; 85025; 85651; 86140; 87086

== ENCOUNTER 2022-05-22 18:18 | Outpatient (CLI) | payer MEDICAID ==
[2022-05-22] MEDS ORDERED: iohexoL-300 100 ML VIAL ONE (18:35)
--- NOTE | 2022-05-22 19:19 | CT Report ---
PROCEDURE: ABDOMEN/PELVIS W INDICATIONS: PELVIC PAIN, RLQ ABD PAIN CONTRAST: 100mL Omni 300 TECHNIQUE: After the administration of IV contrast, 5 mm thick sections acquired from the diaphragms to the symp hysis. 5 mm thick coronal and sagittal reformats were acquired. For radiation dose reduction, the f ollowing was used: automated exposure control, adjustment of mA and/or kV according to patient size. COMPARISON: CT abdomen pelvis 02/21/2022, ultrasound pelvis 03/11/2022 FINDINGS: Image quality: Prominent artifact is present particularly obscuring the portions of the lower pelvis. ABDOMEN: Lung bases: Lung bases are clear. Heart size is normal. Solid organs: Liver and spleen are normal in size. Low-attenuation focus is present in the hepatic d ome, unchanged. Gallbladder has been removed. Biliary system is non dilated. Pancreas enhances nor danny. No adrenal nodules. Kidneys demonstrate normal size and enhancement, without hydronephrosis. Peritoneum and bowel: Bowel loops demonstrate normal wall thickness and caliber. Partially visualiz ed appendix appears normal. No free fluid or air. Nodes and vessels: No retroperitoneal or mesenteric adenopathy by size criteria. Aorta and inferior vena cava are normal in size. Miscellaneous: No ventral hernias. PELVIS: Genitourinary: Bladder wall thickness is normal. Sterilization clips are noted. Persistent right ov claudy cyst. Miscellaneous: No inguinal hernias or adenopathy. Bones: No suspicious bony lesions. No vertebral body compression fractures. IMPRESSION: Persistent appearance of right ovarian cysts identified on prior exam of 02/21/2022. Reviewed by: Jazmine Joel MD on 05/22/2022 7:18 PM PST Approved by: Jazmine Joel MD on 05/22/2022 7:18 PM PST Station ID: [id number]
[2022-05-22] MEDS ORDERED: iohexoL-300 100 ML VIAL IVP ONE (21:15)
== END 2022-05-22 18:19 | disposition home or self-care (01) ==
LOC: DI 18:18
PROVIDERS: ATTEND Nurse Practitioner
DX: R10.2 Pelvic and perineal pain (principal); R10.31 Right lower quadrant pain; N83.201 Unspecified ovarian cyst, right side
CPT/HCPCS: 74177; Q9967

== ENCOUNTER 2022-06-25 15:13 | Outpatient (CLI) | payer MEDICAID ==
--- NOTE | 2022-06-25 16:55 | XRAY Report ---
PROCEDURE: Hip w/Pelvis 2-3V LT INDICATIONS: HIP JOINT PAIN, LEFT TECHNIQUE: AP pelvis with lateral view(s) of the left hip(s). COMPARISON: None. FINDINGS: Bones: No fractures or dislocations. Pelvic ring appears intact. No suspicious bony lesions. Soft tissues: The visualized bowel gas pattern is normal. No suspicious soft tissue calcifications. IMPRESSION: No acute finding or significant degenerative changes. Limited exam due to body habitus. Reviewed by: Kenroy Rivas MD on 06/25/2022 4:54 PM PDT Approved by: Kenroy Rivas MD on 06/25/2022 4:54 PM PDT Station ID: [id number]
== END 2022-06-25 15:14 | disposition home or self-care (01) ==
LOC: DI 15:13
PROVIDERS: ATTEND Physician Assistant
DX: M25.552 Pain in left hip (principal)

== ENCOUNTER 2022-12-26 09:44 | Outpatient (CLI) | payer MEDICAID ==
--- NOTE | 2022-12-26 10:33 | Sleep Patient Instructions ---
Sleep Center Visit Summary - Patient Visit Information Reason for Visit: Initial consult for evaluation of sleep disordered breathing and other sleep issues. - Patient Instructions Instructions Attached: Sleep Study, Sleep Clinic Visit, Sleep Study Home Monitor Additional Instructions: You will be completing a sleep study, either an in-lab polysomnography (PSG) or home sleep study (HST). You will follow-up in the sleep care office after the sleep study is completed to hear the results and talk about therapy, if needed. You will be called by our office staff to schedule this appointment, but you may contact us with any questions. - Clinic Information Contact: [facility] [address] [place] [address] [email or web address] T: [phone]
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
[2022-12-26 10:43] VITALS: BP 128/70; O2SAT 97
== END 2022-12-26 09:45 | disposition home or self-care (01) ==
LOC: SC 09:44
PROVIDERS: ATTEND Nurse Practitioner Family
DX: G47.8 Other sleep disorders (principal); R51.9 Headache, unspecified; R06.83 Snoring; R06.81 Apnea, not elsewhere classified; E66.01 Morbid (severe) obesity due to excess calories; Z68.44 Body mass index [BMI] 60.0-69.9, adult; F32.A Depression, unspecified; Z87.891 Personal history of nicotine dependence
CPT/HCPCS: 99203; 99212

== ENCOUNTER 2023-01-19 14:29 | Outpatient (CLI) | payer MEDICAID ==
[2023-01-19 14:58] LABS: BASOPHILS % (AUTO) 0.4 %; EOSINOPHILS # (AUTO) 0.2 10^3/uL (0.0-0.7); EOSINOPHILS % (AUTO) 1.5 %; HCT - HEMATOCRIT 42.5 % (37.0-47.0); HGB - HEMOGLOBIN 13.5 g/dL (12.0-16.0); LYMPHOCYTES # (AUTO) 2.9 10^3/uL (1.5-3.5); LYMPHOCYTES % (AUTO) 27.4 %; MEAN CORPUSCULAR HEMOGLOBIN 28.2 pg (27.0-31.0); MEAN CORPUSCULAR HGB CONC 31.8 g/dL (32.0-36.0); MEAN CORPUSCULAR VOLUME 88.7 fL (81.0-99.0); MEAN PLATELET VOLUME 9.3 fL (7.9-10.8); MONOCYTES # (AUTO) 0.7 10^3/uL (0.0-1.0); MONOCYTES % (AUTO) 6.4 %; NEUTROPHILS # (AUTO) 6.7 10^3/uL (1.5-6.6); NEUTROPHILS % (AUTO) 64.1 %; PLT - PLATELET COUNT 361 10^3/uL (130-450); RED BLOOD COUNT 4.79 10^6/uL (4.20-5.40); RED CELL DISTRIBUTION WIDTH 13.1 % (12.0-15.0); WHITE BLOOD COUNT 10.4 x10^3/uL (4.8-10.8)
[2023-01-19 15:17] LABS: ALBUMIN 4.7 g/dL (3.2-5.5); ALBUMIN/GLOBULIN RATIO 1.5 (1.0-2.2); BILIRUBIN,TOTAL 0.3 mg/dL (0.2-1.0); CALCIUM 10.1 mg/dL (8.5-10.3); CREATININE 0.7 mg/dL (0.6-1.3); POTASSIUM 4.1 mmol/L (3.5-4.5); TOTAL PROTEIN 7.9 g/dL (6.4-8.9)
[2023-01-19 15:23] LABS: THYROID STIMULATING HORMONE 1.4 uIU/mL (0.34-5.60)
--- NOTE | 2023-01-19 19:51 | XRAY Report ---
PROCEDURE: Abdomen Acute INDICATIONS: ABDOMINAL PAIN, RUQ TECHNIQUE: 2 views of the abdomen were acquired. COMPARISON: None. FINDINGS: Surgical changes and devices: Cholecystectomy clips. Chest: Lungs are clear. Heart size is normal. No pleural effusions. No pneumoperitoneum. Bowel: No pneumoperitoneum. The bowel gas pattern is normal. Stool load within normal limits. Soft tissues: No obvious kidney stones. No masses; visualized solid organ contours appear normal in s ize. No suspicious abdominal calcifications. Bones: No suspicious bony abnormalities. IMPRESSION: No acute cardiopulmonary abnormality. Nonobstructive bowel gas pattern. Reviewed by: Demario Conti MD on 01/19/2023 7:49 PM PDT Approved by: Demario Conti MD on 01/19/2023 7:49 PM PDT Station ID: [id number]
[2023-01-19 22:06] LABS: ESTIMATED AVERAGE GLUCOSE 120 mg/dL (70-100); HEMOGLOBIN A1c% 5.8 % (4.27-6.07)
[2023-01-21 18:07] LABS: ANTINUCLEAR ANTIBODIES IFA Negative (.)
== END 2023-01-19 14:30 | disposition home or self-care (01) ==
LOC: DI 14:29
PROVIDERS: ATTEND Physician Assistant
DX: R10.11 Right upper quadrant pain (principal); R20.2 Paresthesia of skin
CPT/HCPCS: 36415; 80053; 82607; 83036; 84443; 85025; 86038

== ENCOUNTER 2023-02-01 19:43 | Outpatient (CLI) | payer MEDICAID | END 2023-02-01 19:44 | disposition home or self-care (01) | LOC: SC 19:43 | PROVIDERS: ATTEND Nurse Practitioner Family | DX: R06.82 Tachypnea, not elsewhere classified (principal); E66.01 Morbid (severe) obesity due to excess calories; Z68.44 Body mass index [BMI] 60.0-69.9, adult | CPT/HCPCS: 95810 ==

== ENCOUNTER 2023-02-13 11:22 | Outpatient (CLI) | payer MEDICAID ==
[2023-02-13] MEDS ORDERED: BARIUM SULFATE 1,900 ML BOTTLE RC ONE (14:56)
[2023-02-13] MEDS ORDERED: iohexoL-300 100 ML VIAL IVP ONE (14:56)
--- NOTE | 2023-02-13 16:30 | CT Report ---
PROCEDURE: ABDOMEN/PELVIS W INDICATIONS: ABD PAIN CONTRAST: 100ml omni 300 TECHNIQUE: After the administration of oral and intravenous contrast, 5 mm thick sections acquired from the diap hragms to the symphysis. 5 mm thick coronal and sagittal reformats were acquired. For radiation dos e reduction, the following was used: automated exposure control, adjustment of mA and/or kV accordin g to patient size. COMPARISON: 05/22/2022 FINDINGS: Image quality: Elevated BMI with resultant scatter artifact Lung bases and heart: Unremarkable. Liver: Stable low-density lesion subjacent to the top of the intrahepatic inferior vena cava, deformi ty right lateral wall of the inferior vena cava, measuring 3.5 x 3.0 x 2.1 cm. Suspect cyst versus he mangioma. Gallbladder and biliary tree: Surgically absent. No biliary dilation, accounting for post-cholecystec issa state. Spleen: No splenomegaly. Pancreas: No pancreatic ductal dilation. Adrenals: No adrenal nodule. Kidneys and ureters: No hydronephrosis. No renal cystic lesion which requires follow up. No solid mas s. Bowel and peritoneum: No bowel distension. No pathologic free fluid. Lymph nodes: No central or retroperitoneal adenopathy. Vessels: No infrarenal aortic aneurysm. PELVIS Reproductive organs: Unremarkable. Tubal ligation clips Bladder: No abnormal wall thickening, accounting for underdistension. Pelvic lymph nodes: No pelvic adenopathy by size criteria. Bones: No aggressive osseous abnormality. Other: No significant ventral or inguinal hernia. IMPRESSION: 1. Remote cholecystectomy. 2. No acute abdominal process 3. Stable low-density liver lesion, likely a cyst versus hemangioma. Reviewed by: Thomas Roberson MD on 02/13/2023 4:29 PM PDT Approved by: Thomas Roberson MD on 02/13/2023 4:29 PM PDT Station ID: [id number]
== END 2023-02-13 11:23 | disposition home or self-care (01) ==
LOC: DI 11:22
PROVIDERS: ATTEND Physician Assistant
DX: K76.9 Liver disease, unspecified (principal); R10.11 Right upper quadrant pain; Z90.49 Acquired absence of other specified parts of digestive tract
CPT/HCPCS: 74177; A9270; Q9967

== ENCOUNTER 2023-03-11 17:00 | Outpatient (CLI) | payer MEDICAID | END 2023-03-11 17:15 | disposition home or self-care (01) | LOC: LAB.N 17:00 | PROVIDERS: ATTEND Family Medicine | DX: R30.0 Dysuria (principal) | CPT/HCPCS: 87077; 87086; 87181 ==

== ENCOUNTER 2023-04-17 12:04 | Outpatient (CLI) | payer MEDICAID ==
--- NOTE | 2023-04-17 11:57 | SLEEP CARE CONSULTATION ---
Information from patient questionnaire entered by Blossom Mccormack. I have reviewed and concur with the information entered by Blossom Mccormack. This document represents the service I personally performed and the decisions made by , Ju Mcdonnell ARNP. History of Present Illness Service Date and Time: 04/17/2023 1140 Initial [place] Sleepiness Scale score: 2 Current [place] Sleepiness Scale score: 4 (04/17/23) Additional HPI information: EDIE GALAVIZ returns via video appointment for follow up and results of the recently performed polysomnography. The patient was informed of the following findings: No significant sleep disordered breathing with an average AHI of 3.1 and radha oxygen saturation of 90%. Her respiratory rate was elevated at 25-30 breaths per minute. I explained the pathophysiology behind obstructive sleep apnea. Patient does not have sleep apnea and was advised how weight gain could increase the risk of developing sleep apnea in the future. I strongly encouraged the patient to lose weight. Patient has light to loud snoring. Snoring can be reduced by weight loss. Weight loss is best achieved with diet consult. Patient instructed to contact PCP for referral. Snoring can also be treated with an oral appliance from a dentist. Advised to check insurance coverage. In addition, an ENT evaluation can be do to see if other treatment is indicated. Patient was cautioned about risks of drowsy driving until sleepiness symptoms resolve. Sleep Study - Results Type of Sleep Study: Polysomnography (COMPLETED 02/01/23) Prior sleep studies: Yes Year and Where: [facility] 2017 Polysomnography/Home Sleep Study results: IMPRESSION: The quality of the study is good. The patient had normal sleep efficiency. The sleep architecture was abnormal for sleep fragmentation and reduced amount of time spent in slow wave sleep (N3). Respiratory monitoring showed no significant sleep disordered breathing (AHI = 3.1) or hypoxia (radha oxygen saturation of 90%). However, the patients respiratory rate was around 25 30 breaths per minute. The few respiratory events occurred more frequently during supine sleep (supine AHI = 4.1; non-supine = 2.63). Snore was light to loud in intensity. There was no significant periodic leg movement of sleep. Cardiac rhythm was normal sinus rhythm without significant arrhythmia. No abnormal behavior (parasomnia) observed during the night. Allergies and Home Medications Known drug allergies: Yes (as listed) Drug allergies reviewed: Yes Home medication list reviewed: Yes (no changes) Allergy and home medication list: Allergies hydrocodone [From Vicodin] Adverse Reaction (Verified 12/26/22 09:52) Headache Review of Systems Review of systems same as previous: Yes (NO CHANGE) Physical Exam Vital signs obtained and entered by: BLOSSOM Lowery MA Height: 5 ft 4 in (PER PT) Weight: 385 lb (PER PT) Body Mass Index: 66.0 BMI Classification: Morbidly Obese Impression and Plan 1. Tachypnea. Patient returned after polysomnography which showed no significant sleep disordered breathing or hypoxia, however, patient's respiratory rate was around 25 to 30 breaths/min. This can be suggestive of a restrictive vent ilatory defect or possibly due to morbid obesity. She was advised to seek a pulmonary referral for further evaluation for possible hypercarbia and restrictive ventilatory defect. She requested I try to refer her for a pulmonology consult because she did not feel she would be able to get in to see her primary for long time. I will sent the referral as requested, but further followups will need to be with her primary. She voiced understanding. 2. Snoring but no significant sleep disordered breathing. Patient advised that often weight loss will reduce snoring as well as apnea risk. An oral appliance can also be used for snoring. This would require a dental consultation. Patient cautioned not to use other online appliances as can cause bite issues. Patient is advised to check if insurance will cover. An ENT consult can also be helpful to determine if any other treatment is an option. 3. Obesity, Morbid. Currently patients BMI is 66. Obesity increases the risk of apnea, CPAP pressure requirements and overall health risks especially cardiovascular and diabetes. Thus patient is advised to lose weight. * Follow up with primary or pulmonology for tachypnea * Attempt to lose weight * The patient is cautioned about driving until sleepiness is completely resolved. * Return as needed for follow up. Counseling Topics: Weight loss health impact Follow up with Sleep Care in: as needed Follow up with: Other ([facility] [employer] [facility]) Follow up recommended for: Other (Tachypnea) Visit Type: Telehealth Video Video Type: Doximity Patient Location: car Location of Provider: Office Patient agrees and consents to this telehealth visit type: Yes Patient agrees to have their insurance billed: Yes Time Spent with Patient (minutes): 21 Provider Statement: I spent 100% of the Telehealth Video Call with the patient with greater than 50% spent counseling the patient and coordination of care.
== END 2023-04-17 12:05 | disposition home or self-care (01) ==
LOC: SC 12:04
PROVIDERS: ATTEND Nurse Practitioner Family
DX: R06.82 Tachypnea, not elsewhere classified (principal); R06.83 Snoring; E66.01 Morbid (severe) obesity due to excess calories; Z68.44 Body mass index [BMI] 60.0-69.9, adult

== ENCOUNTER 2023-06-20 11:30 | Outpatient (CLI) | payer MEDICAID ==
[2023-06-20 19:05] LABS: BASOPHILS % (AUTO) 0.3 %; EOSINOPHILS # (AUTO) 0.2 10^3/uL (0.0-0.7); EOSINOPHILS % (AUTO) 1.8 %; HGB - HEMOGLOBIN 13.6 g/dL (12.0-16.0); LYMPHOCYTES # (AUTO) 2.7 10^3/uL (1.5-3.5); LYMPHOCYTES % (AUTO) 27.8 %; MEAN CORPUSCULAR HEMOGLOBIN 29.4 pg (27.0-31.0); MEAN CORPUSCULAR HGB CONC 31.6 g/dL (32.0-36.0); MEAN CORPUSCULAR VOLUME 92.9 fL (81.0-99.0); MEAN PLATELET VOLUME 9.4 fL (7.9-10.8); MONOCYTES # (AUTO) 0.6 10^3/uL (0.0-1.0); MONOCYTES % (AUTO) 6.6 %; NEUTROPHILS # (AUTO) 6.1 10^3/uL (1.5-6.6); NEUTROPHILS % (AUTO) 63.3 %; PLT - PLATELET COUNT 387 10^3/uL (130-450); RED BLOOD COUNT 4.63 10^6/uL (4.20-5.40); RED CELL DISTRIBUTION WIDTH 13.3 % (12.0-15.0); WHITE BLOOD COUNT 9.6 x10^3/uL (4.8-10.8)
[2023-06-20 19:18] LABS: ALBUMIN 4.4 g/dL (3.2-5.5); ALBUMIN/GLOBULIN RATIO 1.4 (1.0-2.2); BILIRUBIN,TOTAL 0.4 mg/dL (0.2-1.0); CALCIUM 10.1 mg/dL (8.5-10.3); CREATININE 0.8 mg/dL (0.6-1.3); POTASSIUM 4.1 mmol/L (3.5-4.5); TOTAL PROTEIN 7.6 g/dL (6.4-8.9)
[2023-06-20 19:35] LABS: THYROID STIMULATING HORMONE 1.66 uIU/mL (0.34-5.60)
== END 2023-06-20 11:45 | disposition home or self-care (01) ==
LOC: LAB.N 11:30
PROVIDERS: ATTEND Physician Assistant Medical
DX: N93.9 Abnormal uterine and vaginal bleeding, unspecified (principal); N39.0 Urinary tract infection, site not specified
CPT/HCPCS: 36415; 80053; 84443; 85025; 87086

== ENCOUNTER 2023-06-30 13:30 | Outpatient (CLI) | payer MEDICAID ==
--- NOTE | 2023-06-30 16:58 | Ultrasound Report ---
PROCEDURE: Pelvic w/Transvaginal INDICATIONS: VAG BLEED and pelvic pain TECHNIQUE: Real-time scanning was performed of the pelvic organs, with image documentation. Additional endovagi nal scanning was necessary due to incomplete visualization of the adnexal and endometrial structures by transabdominal scanning. COMPARISON: CT abdomen and pelvis on February 13, 2023. FINDINGS: Evaluation is limited secondary to patient body habitus. Uterus: Uterus is anteverted and normal in size at 9.1 x 3.9 x 4.5 cm. The myometrium is homogeneou s. The endometrium measures 5 mm in combined thickness. Small amount of fluid in the endometrial ce rvical canal. Ovaries: The ovaries are only seen on the transabdominal view. The right ovary measures 2.5 x 2.6 x 2.2 cm, with a calculated ovarian volume of 7.5 cc. The left ovary measures 2.5 x 1.7 x 2.6 cm, with a calculated ovarian volume of 5.8 cc. The ovaries have a normal sonographic appearance. Less than 12 follicles can be seen in each ovary. No adnexal masses are seen. No cystic lesions measuring gre ater than 3 cm. Other: No pathologic free abdominal or pelvic fluid. IMPRESSION: Evaluation is limited secondary to patient body habitus. 1.Within these limitations, no sonographic abnormality to explain patient's vaginal bleeding and pelv ic pain. 2.Endometrial thickness is 5 mm. 3.Small amount of fluid in the endocervical canal. Reviewed by: Reji Espino MD on 06/30/2023 4:57 PM PDT Approved by: Reji Espino MD on 06/30/2023 4:57 PM PDT Station ID: [id number]
== END 2023-06-30 13:31 | disposition home or self-care (01) ==
LOC: DI 13:30
PROVIDERS: ATTEND Physician Assistant Medical
DX: N93.9 Abnormal uterine and vaginal bleeding, unspecified (principal)

== ENCOUNTER 2023-11-09 07:28 | Outpatient (CLI) | payer MEDICAID ==
--- NOTE | 2023-11-09 16:04 | XRAY Report ---
PROCEDURE: Chest 2V INDICATIONS: COUGH, UNSPECIFIED TECHNIQUE: 2 views of the chest were acquired. COMPARISON: None. FINDINGS: Surgical changes and devices: None. Lungs and pleura: No pleural effusions or pneumothorax. Lungs are clear. Mediastinum: Mediastinal contours appear normal. Heart size is unremarkable in size. Bones and chest wall: No suspicious bony lesions. Overlying soft tissues appear unremarkable. IMPRESSION: No acute cardiopulmonary process. Reviewed by: Da Stafford MD on 11/09/2023 4:02 PM PDT Approved by: Da Stafford MD on 11/09/2023 4:02 PM PDT Station ID: [id number]
--- NOTE | 2023-11-09 16:51 | XRAY Report ---
PROCEDURE: Knee 3V LT INDICATIONS: KNEE PAIN, LEFT TECHNIQUE: 3 views of the knee(s) were acquired. COMPARISON: None. FINDINGS: Bones: No fractures or dislocations. Soft tissues: No definite knee joint effusion. No suspicious soft tissue calcifications or masses. IMPRESSION: No acute bony abnormality. Reviewed by: Da Stafford MD on 11/09/2023 4:50 PM PDT Approved by: Da Stafford MD on 11/09/2023 4:50 PM PDT Station ID: [id number]
== END 2023-11-09 07:29 | disposition home or self-care (01) ==
LOC: LAB.N 07:28 → DI.N 07:29
PROVIDERS: ATTEND Nurse Practitioner
DX: R05.9 Cough, unspecified (principal); M25.562 Pain in left knee

== ENCOUNTER 2023-12-16 08:49 | Emergency (ER) | payer MEDICAID ==
[2023-12-16 09:07] VITALS: O2SAT 99
[2023-12-16 10:30] LABS: BASOPHILS % (AUTO) 0.3 %; EOSINOPHILS # (AUTO) 0.1 10^3/uL (0.0-0.7); EOSINOPHILS % (AUTO) 1.8 %; HCT - HEMATOCRIT 41.5 % (37.0-47.0); HGB - HEMOGLOBIN 13.3 g/dL (12.0-16.0); LYMPHOCYTES # (AUTO) 2.3 10^3/uL (1.5-3.5); LYMPHOCYTES % (AUTO) 31.1 %; MEAN CORPUSCULAR VOLUME 90.4 fL (81.0-99.0); MEAN PLATELET VOLUME 9.7 fL (7.9-10.8); MONOCYTES # (AUTO) 0.5 10^3/uL (0.0-1.0); MONOCYTES % (AUTO) 6.7 %; NEUTROPHILS # (AUTO) 4.4 10^3/uL (1.5-6.6); PLT - PLATELET COUNT 328 10^3/uL (130-450); RED BLOOD COUNT 4.59 10^6/uL (4.20-5.40); RED CELL DISTRIBUTION WIDTH 12.4 % (12.0-15.0); WHITE BLOOD COUNT 7.3 x10^3/uL (4.8-10.8)
[2023-12-16 10:48] LABS: HCG,QUALITATIVE BLOOD NEGATIVE
--- NOTE | 2023-12-16 10:50 | XRAY Report ---
PROCEDURE: Chest 1V INDICATIONS: chest pain TECHNIQUE: One view of the chest was acquired. COMPARISON: 11/09/2023 FINDINGS: Surgical changes and devices: None. Lungs and pleura: No pleural effusions or pneumothorax. Lungs are clear. Mediastinum: Mediastinal contours appear normal. Heart size is normal. Bones and chest wall: No suspicious bony lesions. Overlying soft tissues appear unremarkable. IMPRESSION: No acute cardiopulmonary process. Reviewed by: Venkata Doty MD on 12/16/2023 10:49 AM PDT Approved by: Venkata Doty MD on 12/16/2023 10:49 AM PDT Station ID: [id number]
[2023-12-16 11:03] LABS: ALBUMIN 4.2 g/dL (3.2-5.5); ALBUMIN/GLOBULIN RATIO 1.4 (1.0-2.2); BILIRUBIN,TOTAL 0.5 mg/dL (0.2-1.0); CALCIUM 9.2 mg/dL (8.5-10.3); CREATININE 0.8 mg/dL (0.6-1.3); POTASSIUM 3.9 mmol/L (3.5-4.5); TOTAL PROTEIN 7.3 g/dL (6.4-8.9)
[2023-12-16] MEDS: KETOROLAC 30 MG/ML VIAL IVP STA (11:41)
[2023-12-16] MEDS: DEXAMETHASONE 10 MG/ML VIAL IV STA (11:41)
--- NOTE | 2023-12-16 13:02 | ED Physician Documentation ---
PD HPI CHEST PAIN - Stated complaint Stated Complaint: SOA,CHEST PX - Chief complaint Chief Complaint: Cardiac - History obtained from History obtained from: Patient - Additional information Additional information: The pt c/o a sharp, sometimes pulsating pain between her bilateral scapulae for the past day. No fever, cough, or SOB. No movement affects it. No h/o DVT/PE. No injury. 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: section, Other HEENT: Tonsil/Adenoidectomy - Present Medications Home Medications: Ambulatory Orders Medication Instructions Recorded Confirmed Dextroamphetamine/Amphetamine See Rx Instructions .ROUTE .COMPLEX 12/26/22 04/17/23 [Adderall 20 mg Tablet] LORazepam [Ativan] See Rx Instructions .ROUTE .COMPLEX 12/26/22 04/17/23 Melatonin See Rx Instructions .ROUTE .COMPLEX 12/26/22 04/17/23 Metformin HCl [Metformin ER See Rx Instructions .ROUTE .COMPLEX 12/26/22 0 04/17/23 Gastric] cloNIDine [Catapres] See Rx Instructions .ROUTE .COMPLEX 12/26/22 04/17/23 - Allergies Allergies/Adverse Reactions: Allergies Allergy/AdvReac Type Severity Reaction Status Date / Time hydrocodone [From Vicodin] AdvReac Headache Verified 12/16/23 09:00 - Social History Does the pt smoke?: No Smoking Status: Never smoker Does the pt drink ETOH?: No Does the pt have substance abuse?: No - Immunizations Immunizations are current?: Yes Immunizations: TDAP >10years/unknown - POLST Patient has POLST: No PD ED PE NORMAL - Vitals Vital signs reviewed: Yes - General General: Alert and oriented X 3, No acute distress, Well developed/nourished - HEENT HEENT: Atraumatic, EOMI, Moist mucous membranes - Neck Neck: Supple, no meningeal sign - Cardiac Cardiac: RRR, No murmur - Respiratory Respiratory: No respiratory distress, Clear bilaterally - Abdomen Abdomen: Soft, Non tender, Non distended - Back Back: No spinal TTP, Other (Mild TTP bilateral intrascapular musculature.) - Derm Derm: Normal color, Warm and dry, No rash - Extremities Extremities: No deformity - Neuro Neuro: Alert and oriented X 3 - Psych Psych: Normal mood, Normal affect Results - Vitals Vitals: Oxygen O2 Source Room air - EKG (time done) 0904 EKG releavant findings:: EKG personally interpreted by author of this note. Relevant findings are: Rate: Rate (enter#) (44) Rhythm: Sinus bradycardia [place]: Normal Intervals: Normal MS QRS: Normal Ischemia: Normal ST segments Compare to prior EKG: Old EKG unavailable Computer interpretation: Agree with computer - Labs Labs: Laboratory Tests 12/16/23 12/16/23 12/16/23 10:00 10:00 10:00 WBC 7.3 RBC 4.59 Hgb 13.3 Hct 41.5 MCV 90.4 MCH 29.0 MCHC 32.0 RDW 12.4 Plt Count 328 MPV 9.7 Neut # (Auto) 4.4 Lymph # (Auto) 2.3 [place] # (Auto) 0.5 Eos # (Auto) 0.1 Baso # (Auto) 0.0 Absolute Nucleated RBC 0.00 Nucleated RBC % 0.0 D-Dimer 237.7 Sodium 137 Potassium 3.9 Chloride 103 Carbon Dioxide 25 Anion Gap 9.0 BUN 13 Creatinine 0.8 Estimated GFR (MDRD) 82 L Glucose 102 Calcium 9.2 Total Bilirubin 0.5 AST 15 ALT 17 Alkaline Phosphatase 57 Total Protein 7.3 Albumin 4.2 Globulin 3.1 Albumin/Globulin Ratio 1.4 Lipase 52 Serum HCG, Qual 12/16/23 10:00 WBC RBC Hgb Hct MCV MCH MCHC RDW Plt Count MPV Neut # (Auto) Lymph # (Auto) [place] # (Auto) Eos # (Auto) Baso # (Auto) Absolute Nucleated RBC Nucleated RBC % D-Dimer Sodium Potassium Chloride Carbon Dioxide Anion Gap BUN Creatinine Estimated GFR (MDRD) Glucose Calcium Total Bilirubin AST ALT Alkaline Phosphatase Total Protein Albumin Globulin Albumin/Globulin Ratio Lipase Serum HCG, Qual NEGATIVE - Rads (name of study) chest XR Relevant Findings:: Final report received, See rad report (neg) PD Medical Decision Making - ED course Complexity details: reviewed results, re-evaluated patient, considered differential, d/w patient ED course: The pt was worked up with labs, EKG, and CXR, all of which were negative, including d-dimer. I d/w pt that I suspect her sx are musculoskeletal in nature. We have discussed symptomatic management at home, as well as the usual indications for return. Departure - Departure Disposition: Home, Self Care Clinical Impression: Back pain Qualifiers: Back pain location: thoracic back pain Chronicity: acute Back pain laterality: midline Qualified Code(s): M54.6 - Pain in thoracic spine Condition: Stable Instructions: ED Neck Back Pain General Comments: Your workup actually looks quite good today. Your chest x-ray is negative and your laboratory studies including for blood clot, look good. Your EKG shows a mildly slowed but otherwise normal heart rate. You most likely have inflammation of either one of the musculoskeletal structures or the lining of your chest cavity. Ultimately, these kinds of things are expected to blow over on their own. You may take ibuprofen and Tylenol to help with the discomfort or your pain medication if needed. Please follow-up with your primary care physician if symptoms have not improved in the next couple of weeks. Forms: PCP List Discharge Date/Time: 12/16/23 13:19
[2023-12-16 13:19] VITALS: BP 145/88
== END 2023-12-16 13:19 | disposition home or self-care (01) ==
LOC: ED 08:49
DX: M54.6 Pain in thoracic spine (principal); E11.9 Type 2 diabetes mellitus without complications
CPT/HCPCS: 36415; 80053; 80061; 83036; 83690; 83721; 84443; 84703; 85025; 85379; 93005; 96374; 99283

== ENCOUNTER 2023-12-16 13:22 | Outpatient (CLI) | payer MEDICAID ==
[2023-12-16 13:55] LABS: ALBUMIN 4.4 g/dL (3.2-5.5); ALBUMIN/GLOBULIN RATIO 1.3 (1.0-2.2); ALKALINE PHOSPHATASE 68 IU/L (42-121); ALT ALANINE AMINOTRANSFERASE 18 IU/L (10-60); AST ASPARTATE AMINOTRANSFERASE 15 IU/L (10-42); BILIRUBIN,TOTAL 0.5 mg/dL (0.2-1.0); BUN - BLOOD UREA NITROGEN 12 mg/dL (6-20); CALCIUM 9.5 mg/dL (8.5-10.3); CARBON DIOXIDE - CO2 28 mmol/L (21-32); CHLORIDE 102 mmol/L (101-111); CHOL/HDL RATIO 3.4 (<4.4); CHOLESTEROL 132 mg/dL; CREATININE 0.8 mg/dL (0.6-1.3); GFR - MDRD 82 (>89); GLUCOSE 110 mg/dL (74-104); HDL CHOLESTEROL 39 mg/dL; LDL CHOLESTEROL,CALCULATED 79 mg/dL; POTASSIUM 3.9 mmol/L (3.5-4.5); SODIUM 137 mmol/L (135-145); TOTAL PROTEIN 7.7 g/dL (6.4-8.9); TRIGLYCERIDES 71 mg/dL; VLDL CHOLESTEROL 14 mg/dL
[2023-12-16 14:00] LABS: ESTIMATED AVERAGE GLUCOSE 117 mg/dL (70-100); HEMOGLOBIN A1c% 5.7 % (4.27-6.07)
[2023-12-16 14:02] LABS: THYROID STIMULATING HORMONE 2.11 uIU/mL (0.34-5.60)
== END 2023-12-16 13:23 | disposition home or self-care (01) ==
LOC: LAB 13:22
PROVIDERS: ATTEND Physician Assistant
DX: E11.9 Type 2 diabetes mellitus without complications (principal)
CPT/HCPCS: 36415; 80053; 80061; 83036; 83721; 84443

== ENCOUNTER 2023-12-17 14:50 | Outpatient (CLI) | payer MEDICAID | END 2023-12-17 14:51 | disposition home or self-care (01) | LOC: LAB.N 14:50 | PROVIDERS: ATTEND Nurse Practitioner | DX: F32.81 Premenstrual dysphoric disorder (principal); N93.9 Abnormal uterine and vaginal bleeding, unspecified; L68.0 Hirsutism; E28.2 Polycystic ovarian syndrome | CPT/HCPCS: 36415; 82670; 84144; 84403 ==

== ENCOUNTER 2023-12-24 09:13 | Outpatient (CLI) | payer MEDICAID ==
--- NOTE | 2023-12-24 14:08 | XRAY Report ---
PROCEDURE: Chest 2V INDICATIONS: ATYPICAL CHEST PAIN TECHNIQUE: 2 views of the chest were acquired. COMPARISON: Chest x-ray 12/16/2023. FINDINGS: Surgical changes and devices: None. Lungs and pleura: No pleural effusions or pneumothorax. Lungs are clear. Mediastinum: Mediastinal contours appear normal. Heart size is normal. Bones and chest wall: No suspicious bony lesions. Overlying soft tissues appear unremarkable. IMPRESSION: No acute cardiopulmonary process. Reviewed by: Jazmine Joel MD on 12/24/2023 2:07 PM PDT Approved by: Jazmine Joel MD on 12/24/2023 2:07 PM PDT Station ID: [id number]
== END 2023-12-24 09:14 | disposition home or self-care (01) ==
LOC: DI 09:13
PROVIDERS: ATTEND Physician Assistant
DX: R07.89 Other chest pain (principal)